=== PATIENT | male | born 1990 | race Caucasian/White ===

== ENCOUNTER 2016-09-15 12:44 | Emergency (ER) | payer OTHER ==
[~2016-09-15] VITALS: Ht 180.3 cm; Wt 84.3 kg
[~2016-09-15 12:44] MED LIST: ABL5 PO; ALBUAER2 INH
[2016-09-15 12:48] VITALS: TEMP 36.9; Ht 180.3 cm; Wt 84.3 kg
--- NOTE | 2016-09-15 13:43 | EMERGENCY ROOM VISIT NOTE ---
History Report prepared by Nitish: Niki Liz Under the Supervision of: Dr. Alex Hennessy M.D. First contact with patient: 13:19 Chief Complaint: DETOX REQUEST Stated Complaint: DETOX REQUEST Nursing Triage Summary: PT. was told to come to the ED from the Detox center in [facility]. He googled and called them for help. He is requesting to be seen for a referral to become a pt. at [facility]. He is concerned because he does not have health insurance. History of Present Illness The patient is a 26 year old male who presents to the Emergency Room for detox request. The patient is requesting detox from Percocet. He states that he has been taking on an average day 300 mg of Percocet and spending about $300 per day. The patient would take Xanax and Ambien if he could not find Percocet. His last intake of pills was within the past 24 hours. He states that he is beginning to feel nauseated and restless. The patient has tried to get clean before and made it 5 days before the withdrawal symptoms were too severe for him to handle it anymore. He states that this time he really wants to get clean and get his life together. He states that he is "sick of this lifestyle" and that he is "ruining his life". He notes he is spending all the money he makes on getting drugs. He gets the drugs from the street not a prescription. The patient denies IV drug use and denies ever using heroin or cocaine. He states that he is unable to remember himself before he started to take opiates. The patient notes diarrhea when he stops taking Percocet and constipation when he is using. He does have a history of anxiety and depression but denies currently being on medication to treat these. The patient was told to come to the ED by detox center in [facility] to get referral since he does not have health insurance. Source of History: patient Onset: today Position: other (global) Quality: other (detox request) Timing: constant Associated Symptoms: + nausea Note: The patient is beginning to feel restless. Patient is currently not on depression or anxiety medication. Review of Systems All systems have been listed, reviewed, and are negative other than those previously mentioned. Please see Additional Medical History Sheet. Past Medical & Surgical Medical Problems: (1) Anxiety (2) Asthma (3) Bronchitis (4) Depression (5) Pneumonia Family History Diabetes mellitus Hypertension Social History Smoking Status: Current Every Day Smoker Alcohol Use: occasionally Drug Use: other (percocet) Marital Status: in relationship Occupation Status: employed Current/Historical Medications No Active Prescriptions or Reported Meds Allergies Coded Allergies: Ibuprofen (Verified Allergy, Mild, HIVES/SOB, 09/15/16) BEE STING (Unverified Allergy, Unknown, ANAPHYLAXIS, 09/15/16) Wasp (Unverified Allergy, Unknown, ANAPHYLAXIS, 09/15/16) Physical Exam Vital Signs Date Time Temp Pulse Resp B/P (MAP) Pulse Ox O2 Delivery O2 Flow Rate FiO2 09/15/16 16:18 73 16 131/62 96 09/15/16 14:39 81 16 129/78 96 09/15/16 12:48 36.9 101 16 144/92 99 Room Air Physical Exam GENERAL: Patient awake, alert, oriented x 3. Patient follows commands and is appropriate. Patient does not appear toxic. Patient is adequately hydrated and well-nourished. SKIN: No erythema, pallor, cyanosis or rash HEENT: Normal head, pupils equal, reactive to light and accommodation. Oral cavity and posterior pharynx appear normal. Neck: Without adenopathy, no neck vein distention. LUNGS: Clear to auscultation. No wheezes, no rales, no rhonchi. HEART: No murmurs. No gallops. No rubs ABDOMEN: No masses, no rebound, no hepatomegaly or splenomegaly. EXTREMITIES: No signs of trauma. No pedal or pretibial edema. No calf or thigh tenderness. NEUROLOGIC: Cranial nerves II-XII within normal limits. No gross motor sensory function deficits. Medical Decision & Procedures ER Provider Diagnostic Interpretation: X ray results are stated below per my interpretation and the radiologist's interpretation. TWO VIEW CHEST CLINICAL HISTORY: Detox. FINDINGS: PA and lateral chest radiographs are compared to study dated 11/25/2007. The cardiomediastinal silhouette is unremarkable. The lungs and pleural spaces are clear. There is no pneumothorax. The bony thorax appears intact. There is mild S-shaped thoracolumbar scoliosis. IMPRESSION: No active disease in the chest. Electronically signed by: Da Dexter M.D. 09/15/2016 3:27 PM Dictated Date/Time: 09/15/2016 3:26 PM Laboratory Results 7/9/17 13:56 Red Blood Count 5.41, Mean Corpuscular Volume 86.0, Mean Corpuscular Hemoglobin 30.1, Mean Corpuscular Hemoglobin Concent 35.1, Mean Platelet Volume 8.8, Neutrophils (%) (Auto) 72.2, Lymphocytes (%) (Auto) 18.6, Monocytes (%) (Auto) 6.5, Eosinophils (%) (Auto) 2.2, Basophils (%) (Auto) 0.4, Neutrophils # (Auto) 8.71, Lymphocytes # (Auto) 2.24, Monocytes # (Auto) 0.78, Eosinophils # (Auto) 0.27, Basophils # (Auto) 0.05 09/15/16 13:56 Test 09/15/16 13:05 09/15/16 13:56 Urine Color DK YELLOW Urine Appearance CLEAR (CLEAR) Urine pH 6.0 (4.5-7.5) Urine Specific [place] 1.023 (1.000-1.030) Urine Protein NEG (NEG) Urine Glucose (UA) NEG (NEG) Urine Ketones TRACE (NEG) Urine Occult Blood NEG (NEG) Urine Nitrite NEG (NEG) Urine Bilirubin NEG (NEG) Urine Urobilinogen NEG (NEG) Urine Leukocyte Esterase NEG (NEG) White Blood Count 12.06 K/uL (4.8-10.8) Red Blood Count 5.41 M/uL (4.7-6.1) Hemoglobin 16.3 g/dL (14.0-18.0) Hematocrit 46.5 % (42-52) Mean Corpuscular Volume 86.0 fL (80-100) Mean Corpuscular Hemoglobin 30.1 pg (25-34) Mean Corpuscular Hemoglobin Concent 35.1 g/dl (32-36) Platelet Count 328 K/uL (130-400) Mean Platelet Volume 8.8 fL (7.4-10.4) Neutrophils (%) (Auto) 72.2 % Lymphocytes (%) (Auto) 18.6 % Monocytes (%) (Auto) 6.5 % Eosinophils (%) (Auto) 2.2 % Basophils (%) (Auto) 0.4 % Neutrophils # (Auto) 8.71 K/uL (1.4-6.5) Lymphocytes # (Auto) 2.24 K/uL (1.2-3.4) Monocytes # (Auto) 0.78 K/uL (0.11-0.59) Eosinophils # (Auto) 0.27 K/uL (0-0.5) Basophils # (Auto) 0.05 K/uL (0-0.2) RDW Standard Deviation 40.3 fL (36.4-46.3) RDW Coefficient of Variation 12.8 % (11.5-14.5) Immature Granulocyte % (Auto) 0.1 % Immature Granulocyte # (Auto) 0.01 K/uL (0.00-0.02) Anion Gap 7.0 mmol/L (3-11) Est Creatinine Clear Calc Drug Dose 147.7 ml/min Estimated GFR () 141.9 Estimated GFR (Non- 122.4 BUN/Creatinine Ratio 11.5 (10-20) Calcium Level 9.1 mg/dl (8.5-10.1) Total Bilirubin 0.3 mg/dl (0.2-1) Aspartate Amino Transf (AST/SGOT) 11 U/L (15-37) Alanine Aminotransferase (ALT/SGPT) 16 U/L (12-78) Alkaline Phosphatase 76 U/L (45-117) Total Protein 7.2 gm/dl (6.4-8.2) Albumin 4.2 gm/dl (3.4-5.0) Globulin 3.0 gm/dl (2.5-4.0) Albumin/Globulin Ratio 1.4 (0.9-2) Ethyl Alcohol mg/dL < 3.0 mg/dl (0-3) Laboratory results as stated above per my review. Medications Administered Medications (Trade) Dose Ordered Sig/Rosita Route Start Time Stop Time Status Last Admin Dose Admin Clonidine HCl (Catapres Tab) 0.1 mg NOW ONCE PO 09/15/16 15:00 09/15/16 15:01 DC 09/15/16 15:05 0.1 MG Lorazepam (Ativan Tab) 1 mg NOW STAT PO 09/15/16 14:54 09/15/16 14:56 DC 09/15/16 15:05 1 MG ECG Indication: other (drug detox) Rate (beats per minute): 74 Rhythm: sinus rhythm Findings: no acute ischemic change, no ectopy ED Course 1334: Past medical records reviewed. The patient was evaluated in room A7. A complete history and physical examination was performed. 1454: Ativan Inj 1 mg PO, Catapres Tab 0.1 mg PO. 1619: The patient is being transferred to [facility] in [place]. Medical Decision Nurses notes reviewed. Medical history sheet reviewed. Differential diagnosis includes but is not limited to: narcotic withdrawal, seeking rehab. The patient is opiate addicted and using large amounts on a daily basis. He would like to quit. Multiple labs, imaging, EKG and urinalysis were obtained. Please see above. White count is minimally elevated. This may be related to his withdrawal. The patient was given medication for his anxiety and early withdrawal. The patient was accepted to rehabilitation program. Patient had no other complications here in the ED while awaiting transfer. Medication Reconciliation: I attest that I have personally reviewed the patient' s current medication list. Blood Pressure Screening: Patient was found to have a slightly elevated blood pressure due to circumstances. I do not believe that the patient requires hypertension monitoring. Impression Primary Impression: Opiate addiction Additional Impression: Opiate withdrawal Scribe Attestation The scribe's documentation has been prepared under my direction and personally reviewed by me in its entirety. I confirm that the note above accurately reflects all work, treatment, procedures, and medical decision making performed by me. Departure Information Dispostion Transfer Acute Care Facility Prescriptions No Active Prescriptions or Reported Meds Referrals No Doctor, Assigned (PCP) Forms HOME CARE DOCUMENTATION FORM, IMPORTANT VISIT INFORMATION, WORK / SCHOOL INSTRUCTIONS Patient Instructions My [facility] Problem Qualifiers
[2016-09-15 14:17] LABS: BASO % 0.4 %; BASO ABS # 0.05 K/uL (0-0.2); COMPLETE YES; EOS % 2.2 %; HEMATOCRIT 46.5 % (42-52); IG% 0.1 %; LYMPH % 18.6 %; LYMPH ABS # 2.24 K/uL (1.2-3.4); MEAN CORPUSCULAR HEMOGLOBIN 30.1 pg (25-34); MEAN CORPUSCULAR HGB CONC 35.1 g/dl (32-36); MEAN PLATELET VOLUME 8.8 fL (7.4-10.4); MONO % 6.5 %; NEUT % 72.2 %; PLATELET COUNT 328 K/uL (130-400); RED BLOOD COUNT 5.41 M/uL (4.7-6.1); WHITE BLOOD COUNT 12.06 K/uL (4.8-10.8)
[2016-09-15 14:43] LABS: BUN/CREATININE RATIO 11.5 (10-20); CALCIUM 9.1 mg/dl (8.5-10.1); CREATININE 0.8 mg/dl (0.60-1.40); POTASSIUM 4.1 mmol/L (3.5-5.1)
[2016-09-15 14:46] LABS: ALB/GLOB RATIO 1.4 (0.9-2)
[2016-09-15] MEDS ORDERED: LORAZEPAM 1 MG TAB PO STA (14:54)
[2016-09-15] MEDS ORDERED: CLONIDINE HCL 0.1 MG TAB PO ONE (15:00)
--- NOTE | 2016-09-15 15:28 | DIAGNOSTIC IMAGING REPORT ---
TWO VIEW CHEST CLINICAL HISTORY: Detox. FINDINGS: PA and lateral chest radiographs are compared to study dated 11/25/2007. The cardiomediastinal silhouette is unremarkable. The lungs and pleural spaces are clear. There is no pneumothorax. The bony thorax appears intact. There is mild S-shaped thoracolumbar scoliosis. IMPRESSION: No active disease in the chest. Electronically signed by: Da Dexter M.D. 09/15/2016 3:27 PM Dictated Date/Time: 09/15/2016 3:26 PM
[2016-09-15 16:18] VITALS: BP 131/62; PULSE 73; O2SAT 96
[2016-09-15 16:26] LABS: URINE APPEARANCE CLEAR (CLEAR); URINE BILIRUBIN NEG (NEG); URINE COLOR DK YELLOW; URINE NITRITE NEG (NEG); URINE SPECIFIC GRAVITY 1.023 (1.000-1.030); UROBILINOGEN NEG (NEG); ZZUR CULT IF INDIC CLEAN CATCH NO
[2016-09-15 16:29] LABS: MANUAL MICROSCOPIC REQUIRED? NO; REVIEW REQ? NO
== END 2016-09-15 16:18 | disposition short-term general hospital (02) ==
LOC: C.EDB 12:46 → C.EDA 16:18
DX: F11.23 Opioid dependence with withdrawal (principal); F41.9 Anxiety disorder, unspecified; J45.909 Unspecified asthma, uncomplicated; Z83.3 Family history of diabetes mellitus; Z82.49 Family history of ischemic heart disease and other diseases of the circulatory system; F17.200 Nicotine dependence, unspecified, uncomplicated

== ENCOUNTER → 2017-07-24 | Outpatient (CLI) | payer OTHER ==
--- NOTE | 2017-07-24 15:56 | DIAGNOSTIC IMAGING REPORT ---
LEFT KNEE 3 VIEWS HISTORY: S83.90XA Knee sprain Left; hyperextension [id number] COMPARISON: None. FINDINGS: There is no fracture or dislocation. Soft tissues are unremarkable. No radiopaque foreign bodies. No significant knee effusion. IMPRESSION: Unremarkable left knee. Electronically signed by: Francesco Urias M.D. 07/24/2017 3:54 PM Dictated Date/Time: 07/24/2017 3:54 PM
== END | disposition home or self-care (01) ==
LOC: C.RAD1850 15:24
PROVIDERS: ATTEND Nurse Practitioner Family
DX: S83.92XA Sprain of unspecified site of left knee, initial encounter (principal); X58.XXXA Exposure to other specified factors, initial encounter

== ENCOUNTER 2021-10-06 22:54 | Inpatient (IN) ==
--- NOTE | 2021-10-07 00:15 | Emergency Department Note ---
Impression & Plan Mood disorder, Alcohol intoxication Case will be signed out to Dr. Smyth at change of shift awaiting bed placement. ED Provider Note NAME: ALISON CHEN JR AGE: 31 SEX: M ARRIVES VIA: Walk-In INFORMANT: Patient ED PROVIDER(S): Melissa Bro DO CHIEF COMPLAINT: Suicidal and homicidal threats PLAN: Disposition: Signed out at change of shift Condition: Stable MEDICAL DECISION MAKING: This is a 31-year-old male patient who was drinking alcohol tonight and made suicidal and homicidal threats. The patient was intoxicated. Patient was brought to the emergency department on a 302 petition. He was observed in the emergency department until his alcohol level came down. At that time he was medically cleared. The immigration case manager tried to speak with the patient but he initially refused to cooperate. Case management spoke with police, crisis, the patient's girlfriend, and the patient's mother. They all voiced concern for the patient's safety. The police, crisis, and the patient's girlfriend all confirmed that the patient was making suicidal threats and homicidal threats last night prior to coming to the emergency department. Girlfriend states that the patient loaded ammunition into a gun and cocked the gun which was very worrisome for her. I reviewed the 302 and signed off on it. A bed search is underway. Triage Nursing notes reviewed and agree with them. Additional history obtained from police Vital Signs: reviewed and remarkable for hypertension and tachycardia Differential diagnosis: Alcohol intoxication, mood disorder, thought disorder, suicidal ideation, homicidal ideation Diagnostics interpreted by me: Laboratory studies: See below HPI: 31/M arrives for evaluation of suicidal and homicidal ideation. The patient was in an argument with his girlfriend nohelia who petitioned a PFA. He was making suicidal and homicidal threats. When police arrived, he was threatening them with a rifle. They brought him here for mental health armando luation. The patient admits to a history of bipolar disorder and has been off of his Wellbutrin for the past 3 weeks. The patient admits to being an alcoholic and drinking tonight. ROS: See above HPI for pertinent positives & negatives. A total of 10 systems reviewed and were otherwise negative. PAST MEDICAL HISTORY:BiPolar disorder PAST SURGICAL HISTORY:See Below FAMILY HISTORY:See Below SOCIAL HISTORY:The patient does drink alcohol frequently but denies any other drug use. He had been living with his girlfriend. HOME MEDICATIONS:None ALLERGIES:See list VITALS:See Below PHYSICAL EXAMINATION: HEENT: Head - normocephalic and atraumatic. Pupils are equal, round, and reactive to light. Extraocular eye muscles are intact, and sclera are anicteric. Nose - moist nasal mucosa without discharge. Mouth - moist buccal mucosa. Oropharynx is nonerythematous and there is no tonsillar exudate or edema noted. Neck: Supple; no cervical lymphadenopathy noted Heart: Regular rate and rhythm. There is a normal S1 and S2 with no murmurs, clicks, or gallops appreciated. Lungs: Clear to auscultation bilaterally with no wheezes, rales, or rhonchi. Abdomen: Soft, completely nontender, nondistended, with good bowel sounds. There are no palpable pulsatile masses or hepatosplenomegaly. There is no guarding, rigidity, or rebound noted. Extremities: No evidence of cyanosis, clubbing, or edema. There are easily palpable peripheral pulses. Skin: warm and dry with good turgor and no rashes. Psych: ED COURSE: Times/Reassessments: 2325: Patient was evaluated in room A5. The patient was slightly agitated. He was finally agreeable to have laboratory studies drawn. The patient had a blood alcohol level greater than 200. He was allowed some time to sober up and then case management met with him. I also met with him again as he was unwilling to talk to the immigration case manager. I urged him to be cooperative and answer questions so that we could process through the 302. The immigration case manager reached out to the patient's girlfriend as well as the patient's mother. The patient's girlfriend was very concerned for the escalating situation with the patient's alcohol use and mental health issues as he loaded a gun with the ammunition last night and cocked it. A 302 was signed and a bed search is underway. Melissa Bro DO Past Med/Surg History Social History Smoking Status: Unknown if ever smoked Feels Safe at Home: Yes Allergies Allergies Allergy/AdvReac Type Severity Reaction Status Date / Time ibuprofen Allergy Mild HIVES/SOB Verified 10/07/21 00:25 bee venom protein (honey bee) Allergy Unknown ANAPHYLAXIS Unverified 10/07/21 00:25 hornet venom Allergy Unknown ANAPHYLAXIS Unverified 10/07/21 00:25 Home Meds Home Medications Medication Instructions Recorded Confirmed No Known Home Medications 10/07/21 10/07/21 Results & Data (ED) Vital Signs Vital Signs - 24 hr 10/06/21 22:51 10/06/21 22:59 10/07/21 04:22 Temperature 37.1 C Temperature Source Oral Pulse Rate 108 H Pulse Rate [Finger] 84 Pulse Rhythm Regular Pulse Strength Normal Respiratory Rate 16 20 20 Respiratory Effort / Characteristics Non-Labored Spontaneous Non-Labored Spontaneous Non-Labored Spontaneous Respiratory Depth Normal Normal Normal Blood Pressure 150/113 H Blood Pressure [Left Arm] 111/65 Blood Pressure Mean 125 Blood Pressure Mean [Left Arm] 80 Blood Pressure Position Lying Pulse Oximetry 96 96 Oxygen Delivery Method Room Air Room Air Sepsis Recent Fever Within 48 Hours No Sepsis New/Unexplained Change in Mental Status No Sepsis Action Taken by Nursing No Action Required Laboratory Data Result diagrams: 10/07/21 00:00 10/07/21 00:00 Lab Results 10/07/21 10/07/21 10/07/21 Range/Units 00:00 00:00 00:00 WBC 9.06 (4.8-10.8) K/ul RBC 4.85 (4.63-6.08) M/uL Hgb 14.7 (14.0-18.0) g/dl Hct 42.4 (40.1-51.0) % MCV 87.4 (80.0-100.0) fL MCH 30.3 (25.0-34.0) pg MCHC 34.7 (32.0-36.0) g/dL RDW Std Deviation 40.1 (36.4-46.3) fL RDW Coeff of Rosalie 12.7 (11.5-14.5) % Plt Count 295 (130-400) K/uL MPV 8.5 L (9.4-12.4) fL Immature Gran % (Auto) 0.3 % Neut % (Auto) 46.4 % Lymph % (Auto) 39.7 % [place] % (Auto) 9.3 % Eos % (Auto) 3.5 % Baso % (Auto) 0.8 % Neut # (Auto) 4.20 (1.4-6.5) K/uL Lymph # (Auto) 3.60 H (1.2-3.4) K/uL [place] # (Auto) 0.84 H (0.24-0.82) K/uL Eos # (Auto) 0.32 (0-0.50) K/uL Baso # (Auto) 0.07 (0-0.2) K/uL Immature Gran # (Auto) 0.03 H (0.00-0.02) K/uL Sodium 141 (136-145) mmol/L Potassium 3.9 (3.5-5.1) mmol/L Chloride 109 H (98-107) mmol/L Carbon Dioxide 22 (21-32) mmol/L Anion Gap 10 (3-11) BUN 11 (6-23) mg/dl Creatinine 0.64 (0.6-1.4) mg/dl Est Cr Clr Drug Dosing 196.4 ml/min Est GFR ( Amer) > 150.0 ml/min Est GFR (Non-Af Amer) 129.6 ml/min BUN/Creatinine Ratio 17.2 (10-20) Glucose 99 (70-99(Fasting)) mg/dl Calcium 8.7 (8.5-10.1) mg/dl Total Bilirubin 0.2 (0.2-1.0) mg/dl AST 20 (13-39) U/L ALT 30 (7-52) U/L Alkaline Phosphatase 64 (34-104) U/L Total Protein 6.7 (6.0-8.3) gm/dl Albumin 4.5 (3.4-5.0) gm/dl Globulin 2.2 L (2.5-4.0) gm/dl Albumin/Globulin Ratio 2.0 (0.9-2) TSH 4.710 H (0.300-4.500) uIu/ml Free T4 0.84 (0.61-1.60) ng/dl Urine Color Urine Appearance (Clear) Urine pH (4.5-7.5) Ur Specific [place] (1.000-1.030) Urine Protein (Negative) Urine Glucose (UA) (Negative) Urine Ketones (Negative) Urine Blood (Negative) Urine Nitrite (Negative) Urine Bilirubin (Negative) Urine Urobilinogen (Negative) Ur Leukocyte Esterase (Negative) Urine WBC (Auto) (0-5) /hpf Urine RBC (Auto) (0-4) /hpf U Hyaline Cast (Auto) (0-5) /lpf U Epithel Cells (Auto) (0-5) /lpf Urine Bacteria (Auto) (Negative) Salicylates (3.0-30) mg/dl Urine Opiates Screen (Neg) Ur Methadone, Qual (Neg) Acetaminophen (10-30) ug/ml Urine Barbiturates (Neg) Ur Phencyclidine (PCP) (Neg) U Amphetamin/Meth Scrn (Neg) MDMA (Ecstasy) Screen (Neg) U Benzodiazepines Scrn (Neg) Ur Cocaine Metabolite (Neg) U Marijuana (THC) Screen (Neg) Ethyl Alcohol mg/dL (<10.0) mg/dl 10/07/21 10/07/21 10/07/21 Range/Units 00:00 00:00 00:00 WBC (4.8-10.8) K/ul RBC (4.63-6.08) M/uL Hgb (14.0-18.0) g/dl Hct (40.1-51.0) % MCV (80.0-100.0) fL MCH (25.0-34.0) pg MCHC (32.0-36.0) g/dL RDW Std Deviation (36.4-46.3) fL RDW Coeff of Rosalie (11.5-14.5) % Plt Count (130-400) K/uL MPV (9.4-12.4) fL Immature Gran % (Auto) % Neut % (Auto) % Lymph % (Auto) % [place] % (Auto) % Eos % (Auto) % Baso % (Auto) % Neut # (Auto) (1.4-6.5) K/uL Lymph # (Auto) (1.2-3.4) K/uL [place] # (Auto) (0.24-0.82) K/uL Eos # (Auto) (0-0.50) K/uL Baso # (Auto) (0-0.2) K/uL Immature Gran # (Auto) (0.00-0.02) K/uL Sodium (136-145) mmol/L Potassium (3.5-5.1) mmol/L Chloride (98-107) mmol/L Carbon Dioxide (21-32) mmol/L Anion Gap (3-11) BUN (6-23) mg/dl Creatinine (0.6-1.4) mg/dl Est Cr Clr Drug Dosing ml/min Est GFR ( Amer) ml/min Est GFR (Non-Af Amer) ml/min BUN/Creatinine Ratio (10-20) Glucose (70-99(Fasting)) mg/dl Calcium (8.5-10.1) mg/dl Total Bilirubin (0.2-1.0) mg/dl AST (13-39) U/L ALT (7-52) U/L Alkaline Phosphatase (34-104) U/L Total Protein (6.0-8.3) gm/dl Albumin (3.4-5.0) gm/dl Globulin (2.5-4.0) gm/dl Albumin/Globulin Ratio (0.9-2) TSH (0.300-4.500) uIu/ml Free T4 (0.61-1.60) ng/dl Urine Color Urine Appearance (Clear) Urine pH (4.5-7.5) Ur Specific [place] (1.000-1.030) Urine Protein (Negative) Urine Glucose (UA) (Negative) Urine Ketones (Negative) Urine Blood (Negative) Urine Nitrite (Negative) Urine Bilirubin (Negative) Urine Urobilinogen (Negative) Ur Leukocyte Esterase (Negative) Urine WBC (Auto) (0-5) /hpf Urine RBC (Auto) (0-4) /hpf U Hyaline Cast (Auto) (0-5) /lpf U Epithel Cells (Auto) (0-5) /lpf Urine Bacteria (Auto) (Negative) Salicylates < 3.0 L (3.0-30) mg/dl Urine Opiates Screen Neg (Neg) Ur Methadone, Qual Neg (Neg) Acetaminophen < 3 L (10-30) ug/ml Urine Barbiturates Neg (Neg) Ur Phencyclidine (PCP) Neg (Neg) U Amphetamin/Meth Scrn Neg (Neg) MDMA (Ecstasy) Screen Neg (Neg) U Benzodiazepines Scrn Neg (Neg) Ur Cocaine Metabolite Neg (Neg) U Marijuana (THC) Screen Neg (Neg) Ethyl Alcohol mg/dL 208.2 H (<10.0) mg/dl 07/31/22 Range/Units 00:00 WBC (4.8-10.8) K/ul RBC (4.63-6.08) M/uL Hgb (14.0-18.0) g/dl Hct (40.1-51.0) % MCV (80.0-100.0) fL MCH (25.0-34.0) pg MCHC (32.0-36.0) g/dL RDW Std Deviation (36.4-46.3) fL RDW Coeff of Rosalie (11.5-14.5) % Plt Count (130-400) K/uL MPV (9.4-12.4) fL Immature Gran % (Auto) % Neut % (Auto) % Lymph % (Auto) % [place] % (Auto) % Eos % (Auto) % Baso % (Auto) % Neut # (Auto) (1.4-6.5) K/uL Lymph # (Auto) (1.2-3.4) K/uL [place] # (Auto) (0.24-0.82) K/uL Eos # (Auto) (0-0.50) K/uL Baso # (Auto) (0-0.2) K/uL Immature Gran # (Auto) (0.00-0.02) K/uL Sodium (136-145) mmol/L Potassium (3.5-5.1) mmol/L Chloride (98-107) mmol/L Carbon Dioxide (21-32) mmol/L Anion Gap (3-11) BUN (6-23) mg/dl Creatinine (0.6-1.4) mg/dl Est Cr Clr Drug Dosing ml/min Est GFR ( Amer) ml/min Est GFR (Non-Af Amer) ml/min BUN/Creatinine Ratio (10-20) Glucose (70-99(Fasting)) mg/dl Calcium (8.5-10.1) mg/dl Total Bilirubin (0.2-1.0) mg/dl AST (13-39) U/L ALT (7-52) U/L Alkaline Phosphatase (34-104) U/L Total Protein (6.0-8.3) gm/dl Albumin (3.4-5.0) gm/dl Globulin (2.5-4.0) gm/dl Albumin/Globulin Ratio (0.9-2) TSH (0.300-4.500) uIu/ml Free T4 (0.61-1.60) ng/dl Urine Color Yellow Urine Appearance Clear (Clear) Urine pH 6.0 (4.5-7.5) Ur Specific [place] 1.007 (1.000-1.030) Urine Protein Negative (Negative) Urine Glucose (UA) Negative (Negative) Urine Ketones Negative (Negative) Urine Blood Negative (Negative) Urine Nitrite Negative (Negative) Urine Bilirubin Negative (Negative) Urine Urobilinogen Negative (Negative) Ur Leukocyte Esterase Trace H (Negative) Urine WBC (Auto) 1-5 (0-5) /hpf Urine RBC (Auto) 0-4 (0-4) /hpf U Hyaline Cast (Auto) 0 (0-5) /lpf U Epithel Cells (Auto) 0-5 (0-5) /lpf Urine Bacteria (Auto) Negative (Negative) Salicylates (3.0-30) mg/dl Urine Opiates Screen (Neg) Ur Methadone, Qual (Neg) Acetaminophen (10-30) ug/ml Urine Barbiturates (Neg) Ur Phencyclidine (PCP) (Neg) U Amphetamin/Meth Scrn (Neg) MDMA (Ecstasy) Screen (Neg) U Benzodiazepines Scrn (Neg) Ur Cocaine Metabolite (Neg) U Marijuana (THC) Screen (Neg) Ethyl Alcohol mg/dL (<10.0) mg/dl Discharge Plan Visit Data Chief Complaint: Mental Health Evaluation ED Provider: Melissa Bro Discharge Problem: Mood disorder, Alcohol intoxication Forms Stand Alone Forms: [facility], Suicide Prevention Resources Prescriptions Prescriptions: No Action No Known Home Medications Referrals Referrals: PCP,NO [Primary Care Provider] - : Alcohol intoxication Qualifiers: Complication of substance-induced condition: with unspecified complication Qualified Code(s): F10.929 - Alcohol use, unspecified with intoxication, unspecified
[2021-10-07 00:18] LABS: Basophils # (auto) 0.07 K/uL (0-0.2); Basophils % (auto) 0.8 %; Eosinophils # (auto) 0.32 K/uL (0-0.50); Eosinophils % (auto) 3.5 %; Hematocrit (blood only) 42.4 % (40.1-51.0); Hemoglobin 14.7 g/dl (14.0-18.0); Immature Granulocytes # (auto) 0.03 K/uL (0.00-0.02); Immature Granulocytes % (auto) 0.3 %; Lymphocytes % (auto) 39.7 %; Mean Corpuscular Hemoglobin 30.3 pg (25.0-34.0); Mean Corpuscular Hgb Conc 34.7 g/dL (32.0-36.0); Mean Corpuscular Volume 87.4 fL (80.0-100.0); Mean Platelet Volume 8.5 fL (9.4-12.4); Monocytes # (auto) 0.84 K/uL (0.24-0.82); Monocytes % (auto) 9.3 %; Neutrophils % (auto) 46.4 %; Platelet Count 295 K/uL (130-400); RDW Coefficient of Variation 12.7 % (11.5-14.5); RDW Standard Deviation 40.1 fL (36.4-46.3); Red Blood Count 4.85 M/uL (4.63-6.08); White Blood Count 9.06 K/ul (4.8-10.8)
[2021-10-07 00:23] LABS: Appearance Urine Clear (Clear); Bacteria Urine Automated Negative (Negative); Bilirubin Urine Negative (Negative); Blood Urine Negative (Negative); Cast Urine Automated 0 /lpf (0-5); Color Urine Yellow; Epithelial Cell Urine Auto 0-5 /lpf (0-5); Glucose Urine UA Negative (Negative); Ketones Urine Negative (Negative); Leukocyte Esterase Urine Trace (Negative); Nitrite Urine Negative (Negative); Protein Urine Negative (Negative); RBC Urine Automated 0-4 /hpf (0-4); Specific Gravity Urine 1.007 (1.000-1.030); Urobilinogen Urine Negative (Negative)
[2021-10-07 00:41] LABS: Alanine Aminotransferase 30 U/L (7-52); Albumin Level 4.5 gm/dl (3.4-5.0); Alkaline Phosphatase 64 U/L (34-104); Anion Gap 10 (3-11); Aspartate Aminotransferase 20 U/L (13-39); BUN Creatinine Ratio 17.2 (10-20); Bilirubin,Total 0.2 mg/dl (0.2-1.0); Blood Urea Nitrogen 11 mg/dl (6-23); Calcium 8.7 mg/dl (8.5-10.1); Carbon Dioxide 22 mmol/L (21-32); Chloride 109 mmol/L (98-107); Creatinine Clr Calc Pharmacy 196.4 ml/min; Est GFR (African American) > 150.0 ml/min; Est GFR (Non-African American) 129.6 ml/min; Globulin 2.2 gm/dl (2.5-4.0); Glucose 99 mg/dl (70-99(Fasting)); Potassium 3.9 mmol/L (3.5-5.1); Sodium 141 mmol/L (136-145); Total Protein 6.7 gm/dl (6.0-8.3)
[2021-10-07 00:51] LABS: Amphetamines+Metham, Urine Neg (Neg); Barbiturates, Urine Neg (Neg); Benzodiazepine, Urine Neg (Neg); Cocaine, Urine Neg (Neg); MDMA (Ecstacy), Urine Neg (Neg); Methadone, Urine Neg (Neg); Opiate, Urine Neg (Neg); Phencyclidine, Urine Neg (Neg)
[2021-10-07 00:54] LABS: Acetaminophen < 3 ug/ml (10-30); Salicylate < 3.0 mg/dl (3.0-30)
[2021-10-07 01:04] LABS: Thyroid Stimulating Hormone 4.71 uIu/ml (0.300-4.500)
[2021-10-07 01:38] LABS: T4 Free Thyroxine 0.84 ng/dl (0.61-1.60)
[2021-10-07] MEDS ORDERED: NICOTINE POLACRILEX 2 MG GUM MT PRN (12:46)
[2021-10-07] MEDS ORDERED: NICOTINE POLACRILEX 2 MG GUM MT ONE (12:50)
--- NOTE | 2021-10-07 15:06 | Emergency Department Note ---
ED Visit Note Date and Time: 10/07/21 Interval History: Sign out received from Dr. Bro who reviewed details of the encounter. Patient was pending. Is a 302 with suicidal ideation and had an loaded rifle at 1 point. He was also homicidal towards police. Bed search underway. Summary: Patient was re-evaluated at 1500 and vital signs reviewed. Is awake a lert. Skin turgor is good. Breathing normally. So far there have been 4 referrals. 3 declined the patient. [address] out to Dr. James. Disposition:pending Total Time:pending . : Alcohol intoxication Qualifiers: Complication of substance-induced condition: with unspecified complication Qualified Code(s): F10.929 - Alcohol use, unspecified with intoxication, unspecified
--- NOTE | 2021-10-07 15:12 | Emergency Department Note ---
ED Visit Note Date and Time: 10/08/2021, 0036 Interval History: Sign out received from Dr. Smyth who reviewed details of the encounter. Patient was pending involuntary psychiatric bed placement. Summary: Patient was re-evaluated at 0036 and vital signs reviewed. The patient has been cooperative. He was given a dose of oral Ativan to help with some anxiety. He is currently resting comfortably. Bed search is underway. Case assumed by Dr. Bro at the change of shift Disposition: Pending. Total Time: Pending . : Alcohol intoxication Qualifiers: Complication of substance-induced condition: with unspecified complication Qualified Code(s): F10.929 - Alcohol use, unspecified with intoxication, unspecified
[2021-10-07] MEDS ORDERED: LORazepam 1 MG TAB PO STA (19:43)
--- NOTE | 2021-10-08 00:42 | Emergency Department Note ---
ED Visit Note Date and Time: 10/08/2021 700AM Interval History: Sign out received from Dr. James who reviewed details of the encounter. Vital Signs: Reviewed Limited Exam: Patient was awake and alert. He has normal breathing and normal skin color. Psych: Patient is pleasant and cooperative on exam. He has a normal thought process and is able to communicate with me. He voices that he is significantly hungry and would like a double breakfast tray. Summary: The patient was signed out to me overnight awaiting bed placement. The bed search was suspended overnight. He rested throughout the night. He had received something for his anxiety last night that helped him sleep overnight. The case will be signed out to Dr. Stern at change of shift awaiting further psychiatric evaluation today and bed placement. Disposition: Pending as the bed search has been suspended overnight Total Time:Pending . : Alcohol intoxication Qualifiers: Complication of substance-induced condition: with unspecified complication Qualified Code(s): F10.929 - Alcohol use, unspecified with intoxication, unspecified
--- NOTE | 2021-10-08 06:49 | Emergency Department Note ---
ED Visit Note ED Physician Sign Out Note: 31 yr old male here on 302 warrant (gun involved & police) pending bed placement. Signed out to me by Dr Bro pending placement. Patient with no issues throughout the morning. He is evaluated by psychiatry who does feel he requires inpatient stay. He was signed out to Dr Morton pending placement. Mitul Stern MD : Alcohol intoxication Qualifiers: Complication of substance-induced condition: with unspecified complication Qualified Code(s): F10.929 - Alcohol use, unspecified with intoxication, unspecified
--- NOTE | 2021-10-08 12:43 | Psychiatric Consultation ---
Date of Consultation October 08, 2021 Impression / Recommendations Impression 31 yo male with a reported diagnosis of bipolar disorder, hx of opiate dependence, presents with increasingly erratic behavior involving a weapon while intoxicated after misusing Wellbutrin. Wellbutrin is dopaminergic and given his hx of bipolar could precipitate a manic episode. He has reportedly been self medicating with Etoh. He has been cooperative in ED on his 302 commitment, did receive 1 dose of Ativan for restlessness/sleep. No evidence of ETOH withdrawal on exam at this time, may need AWSS protocol. (1) Bipolar disorder: (2) Alcohol intoxication: Complication of substance-induced condition: with unspecified complication Qualified Code(s): F10.929 - Alcohol use, unspecified with intoxication, unspecified Plan continue bed search, currently no evidence of cruz, incident was significant and likely minimizing considering restart Abilify when placed if agitation in interim would suggest Haldol 5 mg po and Ativan 1 mg po Protective Factors Assessment Employed: Yes Psych History Identifying Data 31 yo male lived with his girlfriend (now there is reportedly a PFA) in [place]. Brought to the ED on a 302 warrant by police in early am on 10/07/21, now a completed 302 for threats to self and others. Chief Complaint boarding in ED >30 hrs at time of assessment History of Present Illness The patient had a SHANNA on arrival to the ED of >200, reportedly several hours after he stopped drinking. He states he will have 2-3 beers with dinner and then have a binge episode maybe once a month, and "that day was it." Denies pointing a gun at himself or girlfriend. Alleges that she is mentally unstable in that self-injured and was seen in the ED and released in the past so feels he is being targetted but denies paranoia. There is mention on the chart that he has been off of medications for at least a week. Patient admits that he was taking his girlfriend's Wellbutrin and "that stuff made me manic." states that the past 6 years he has been stable (following release from custodial on probation violations stemming from drug charges (opiate abuse related) and he did complete rehab as a condition of his release. He has been working for a [employer] and has been spending time with his 8 yo daughter. He is interested in resuming outpatient care and perhaps a mood stabilizer. Denies any vegetative symptoms of depression, unclear if has irritable episodes outside of alcohol and substance use. He was not able to recall when he was diagnosed with bipolar disorder, states he was "just a kid" and recalls seeing Dr. Garcia and Dr. Ulloa. Denies a hx of inpatient treatment. Recalls that Abilify "helped." Reports a good relationship with his probation office and believes that he can stay with his mother after leave psychiatic facility. per ED CM: Spoke with petclementeer [removed as 3rd republican] states that Best has been struggling with his mental health for years but has been decompensating since this past winter when his grandmother was sick and he began drinking heavily again. She states that Best has threatened suicide multiple times before but yesterday was more concerning than any other time. She states Best drank heavily yesterday and took [] new car for two hours. He became angry when she confronted him and flipped out, slamming doors. [] heard Best in the bedroom loading and cocking his rifle. He took the rifle with him and stated he was going to kill himself. She states he's been having visual and auditory hallucinations, calling her at work stating there were people in the backyard. She states he has pointed his gun at both himself and her. Past Psychiatric History Current Psychiatric Diagnosis: Bipolar disorder Allergies Allergy/AdvReac Type Severity Reaction Status Date / Time ibuprofen Allergy Mild HIVES/SOB Verified 10/07/21 00:25 bee venom protein (honey bee) Allergy Unknown ANAPHYLAXIS Unverified 10/07/21 00:25 hornet venom Allergy Unknown ANAPHYLAXIS Unverified 10/07/21 00:25 Home Medications Medication Instructions Recorded Confirmed Type No Known Home Medications 10/07/21 10/07/21 History Family History states does't know Personal History Living Arrangements: Home Patient History Medical History (Updated 10/08/21 @ 12:55 by Maria Isabel Dickerson MD) Asthma Social History Smoking Status: Unknown if ever smoked Feels Safe at Home: Yes Physical Exam Psychiatric: Orientation: alert and oriented x 3 Apperance: appropriately dressed and appropriately groomed Eye Contact: good eye contact Motor Behavior: no abnormal motor movements Speech: normal rate/rhythm/volume of speech Affect: euthymic affect Mood: + depressed mood Thought Process: goal directed thought process Thought Content: reality based without d elusions Suicidal Thoughts: denies suicidal thoughts Homicidal Thoughts: denies homicidal thoughts Hallucinations: no auditory hallucinations and no visual hallucinations Cognition: attention grossly intact and language grossly intact Estimated Intelligence: consistent with education level Insight: + limited insight Judgement: + limited judgement Vital Signs (Past 24 Hours): Last Vital Signs Temp 37.1 C 10/06/21 22:51 Pulse 63 10/08/21 06:32 Resp 16 10/08/21 06:32 BP 142/86 H 10/08/21 06:32 Pulse Ox 98 10/08/21 06:32 O2 Del Method 10/08/21 06:32 Review of Systems All systems reviewed & are unremarkable except as noted in HPI & below Results & Data (PSY) Laboratory Results Labs 10/07/21 10/07/21 10/07/21 00:00 00:00 00:00 WBC 9.06 RBC 4.85 Hgb 14.7 Hct 42.4 MCV 87.4 MCH 30.3 MCHC 34.7 RDW Std Deviation 40.1 RDW Coeff of Rosalie 12.7 Plt Count 295 MPV 8.5 L Immature Gran % (Auto) 0.3 Neut % (Auto) 46.4 Lymph % (Auto) 39.7 Day % (Auto) 9.3 Eos % (Auto) 3.5 Baso % (Auto) 0.8 Neut # (Auto) 4.20 Lymph # (Auto) 3.60 H Day # (Auto) 0.84 H Eos # (Auto) 0.32 Baso # (Auto) 0.07 Immature Gran # (Auto) 0.03 H Sodium 141 Potassium 3.9 Chloride 109 H Carbon Dioxide 22 Anion Gap 10 BUN 11 Creatinine 0.64 Est Cr Clr Drug Dosing 196.4 Est GFR ( Amer) > 150.0 Est GFR (Non-Af Amer) 129.6 BUN/Creatinine Ratio 17.2 Glucose 99 Calcium 8.7 Total Bilirubin 0.2 AST 20 ALT 30 Alkaline Phosphatase 64 Total Protein 6.7 Albumin 4.5 Globulin 2.2 L Albumin/Globulin Ratio 2.0 TSH 4.710 H Free T4 0.84 Urine Color Urine Appearance Urine pH Ur Specific Sully Urine Protein Urine Glucose (UA) Urine Ketones Urine Blood Urine Nitrite Urine Bilirubin Urine Urobilinogen Ur Leukocyte Esterase Urine WBC (Auto) Urine RBC (Auto) U Hyaline Cast (Auto) U Epithel Cells (Auto) Urine Bacteria (Auto) Salicylates Urine Opiates Screen Ur Methadone, Qual Acetaminophen Urine Barbiturates Ur Phencyclidine (PCP) U Amphetamin/Meth Scrn MDMA (Ecstasy) Screen U Benzodiazepines Scrn Ur Cocaine Metabolite U Marijuana (THC) Screen Ethyl Alcohol mg/dL SARS-CoV-2, RNA, NAAT 10/07/21 10/07/21 10/07/21 00:00 00:00 00:00 WBC RBC Hgb Hct MCV MCH MCHC RDW Std Deviation RDW Coeff of Rosalie Plt Count MPV Immature Gran % (Auto) Neut % (Auto) Lymph % (Auto) Day % (Auto) Eos % (Auto) Baso % (Auto) Neut # (Auto) Lymph # (Auto) Day # (Auto) Eos # (Auto) Baso # (Auto) Immature Gran # (Auto) Sodium Potassium Chloride Carbon Dioxide Anion Gap BUN Creatinine Est Cr Clr Drug Dosing Est GFR ( Amer) Est GFR (Non-Af Amer) BUN/Creatinine Ratio Glucose Calcium Total Bilirubin AST ALT Alkaline Phosphatase Total Protein Albumin Globulin Albumin/Globulin Ratio TSH Free T4 Urine Color Urine Appearance Urine pH Ur Specific Sully Urine Protein Urine Glucose (UA) Urine Ketones Urine Blood Urine Nitrite Urine Bilirubin Urine Urobilinogen Ur Leukocyte Esterase Urine WBC (Auto) Urine RBC (Auto) U Hyaline Cast (Auto) U Epithel Cells (Auto) Urine Bacteria (Auto) Salicylates < 3.0 L Urine Opiates Screen Neg Ur Methadone, Qual Neg Acetaminophen < 3 L Urine Barbiturates Neg Ur Phencyclidine (PCP) Neg U Amphetamin/Meth Scrn Neg MDMA (Ecstasy) Screen Neg U Benzodiazepines Scrn Neg Ur Cocaine Metabolite Neg U Marijuana (THC) Screen Neg Ethyl Alcohol mg/dL 208.2 H SARS-CoV-2, RNA, NAAT 10/07/21 10/07/21 00:00 13:45 WBC RBC Hgb Hct MCV MCH MCHC RDW Std Deviation RDW Coeff of Rosalie Plt Count MPV Immature Gran % (Auto) Neut % (Auto) Lymph % (Auto) Day % (Auto) Eos % (Auto) Baso % (Auto) Neut # (Auto) Lymph # (Auto) Day # (Auto) Eos # (Auto) Baso # (Auto) Immature Gran # (Auto) Sodium Potassium Chloride Carbon Dioxide Anion Gap BUN Creatinine Est Cr Clr Drug Dosing Est GFR ( Amer) Est GFR (Non-Af Amer) BUN/Creatinine Ratio Glucose Calcium Total Bilirubin AST ALT Alkaline Phosphatase Total Protein Albumin Globulin Albumin/Globulin Ratio TSH Free T4 Urine Color Yellow Urine Appearance Clear Urine pH 6.0 Ur Specific Sully 1.007 Urine Protein Negative Urine Glucose (UA) Negative Urine Ketones Negative Urine Blood Negative Urine Nitrite Negative Urine Bilirubin Negative Urine Urobilinogen Negative Ur Leukocyte Esterase Trace H Urine WBC (Auto) 1-5 Urine RBC (Auto) 0-4 U Hyaline Cast (Auto) 0 U Epithel Cells (Auto) 0-5 Urine Bacteria (Auto) Negative Salicylates Urine Opiates Screen Ur Methadone, Qual Acetaminophen Urine Barbiturates Ur Phencyclidine (PCP) U Amphetamin/Meth Scrn MDMA (Ecstasy) Screen U Benzodiazepines Scrn Ur Cocaine Metabolite U Marijuana (THC) Screen Ethyl Alcohol mg/dL SARS-CoV-2, RNA, NAAT NEGATIVE Coding Level of Care Code 24562 ED Level 3 Diagnoses Bipolar disorder F31.9 Alcohol intoxication F10.929 Complication of substance-induced condition: with unspecified complication
--- NOTE | 2021-10-08 19:09 | Emergency Department Note ---
ED Visit Note Date and Time: October 08, 2021 7:10 PM. Interval History: Sign out received from Dr. Rahat estrada reviewed details of the encounter. Vital Signs: Elevated blood pressure otherwise stable. Limited Exam: Patient is awake and alert. He is nonanxious appearing. Patient appears comfortable. Patient is able to ambulate. Summary: The patient is a 31-year-old male who presented to the emergency department for an evaluation of mental health problems. The patient is a 302 admission. He was excepted on 3 S. for further evaluation. Disposition: 10/08/2021 7:15 PM Total Time: 44 hours and 13 minutes. . : Alcohol intoxication Qualifiers: Complication of substance-induced condition: with unspecified complication Qualified Code(s): F10.929 - Alcohol use, unspecified with intoxication, unspecified
[2021-10-08] MEDS ORDERED: hydrOXYzine HCl 25 MG TAB PO PRN ×2 (20:01)
[2021-10-08] MEDS ORDERED: MAGNESIUM HYDROXIDE SUSP 30 ML UDC PO PRN (20:01)
[2021-10-08] MEDS ORDERED: ACETAMINOPHEN 325 MG TAB PO PRN (20:01)
[2021-10-08] MEDS ORDERED: ALUMINUM/MAGNESIUM SUSP 30 ML UDC PO PRN (20:01)
[2021-10-08] MEDS ORDERED: SODIUM CHLORIDE 0.65% NA SOLN 45 ML (OCEAN) PRN (20:01)
[2021-10-08] MEDS ORDERED: haloperidoL 5 MG TAB PO PRN (20:02)
[2021-10-08] MEDS ORDERED: LORazepam 1 MG TAB PO PRN ×3 (20:35)
[2021-10-08] MEDS ORDERED: Ativan PO Alcohol Withdrawal--Active Protocol PO PRN (20:35)
[2021-10-08] MEDS ORDERED: LORazepam 1 MG TAB PO STA (20:36)
[2021-10-08 22:30] LABS: Appearance Urine Clear (Clear); Bacteria Urine Automated Negative (Negative); Bilirubin Urine Negative (Negative); Blood Urine Negative (Negative); Color Urine Yellow; Epithelial Cell Urine Auto >30 /lpf (0-5); Glucose Urine UA Negative (Negative); Ketones Urine Negative (Negative); Leukocyte Esterase Urine 1+ (Negative); Nitrite Urine Negative (Negative); Protein Urine Negative (Negative); RBC Urine Automated 0-4 /hpf (0-4); Specific Gravity Urine 1.025 (1.000-1.030); Urobilinogen Urine Negative (Negative); WBC Urine Automated >30 /hpf (0-5); pH Urine 5.5 (4.5-7.5)
--- NOTE | 2021-10-09 06:18 | History & Physical ---
Date of Service October 09, 2021 Impression / Recommendations Impression 31 yo male with a reported diagnosis of bipolar disorder, hx of opiate dependence, presented with increasingly erratic behavior involving a weapon while intoxicated soon after misusing Wellbutrin. Wellbutrin is dopaminergic and given his hx of bipolar could precipitate a manic episode. He has reportedly been self medicating with Etoh. He was cooperative in ED on his 302 commitment. Now on AWSS protocol as BP trending up around admission. Patient also notes onset of urinary hesitancy 8/1 am with WBC, negative bacteria but + leuk est. differential--UA vs. uretritis vs prostatis. He denies discharge, hx of renal stones, or urethral stricture. (1) Bipolar disorder: (2) Alcohol intoxication: Complication of substance-induced condition: with unspecified complication Qualified Code(s): F10.929 - Alcohol use, unspecified with intoxication, unspecified (3) Sterile pyuria: Plan The patient was admitted to the [facility] on q15 min checks (behavioral with suicide precautions) for safety. The patient will participate in group, recreational, and milieu therapies and will be offered additional individual and family sessions as clinically appropriate. continue AWSS protocol. Re: pyuria, presumed urethritis will treat with course of doxycycline. 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 Reviewed that Ativan was withdrawal only (continues to deny withdrawal) and that will not be prescribed anyway given substance abuse hx. He has taken 5 mg Buspar before and found it helpful. Risks/benefits/alternatives were reviewed re: antipsychotics for mood and/or psychosis. Discussion included but was not limited to metabolic side effects, risks of TD and suicidal thoughts. There were no abnormal motor movements at baseline. Fasting glucose and lipid panel ordered for baseline monitoring. Will restart Abilify 2.5 mg today and 5 mg qam tomorrow. Confirmed he can afford generic equivalent. Inventory Assets Strengths: employed, loves daughter Needs: housing, resume outpatient treatment Suicide Risk Level Suicide Risk Level: Moderate (q15 min suicide checks) (patient denies since sober) Risk Factors Assessment Male: Yes : Yes Do You Have Access To A Gun?: Yes (need to confirm if confiscated, he is unable to return home) Mental Health Diagnoses: Yes Substance Use Disorders: Yes Previous Attempt: No Previous Psychiatric Hospitalization: No Protective Factors Assessment Responsible for Young Children: Yes (shared custody) Employed: Yes Supportive Family: Yes (mother) Psychiatric History Identifying Data ALISON CHEN is a 31-year-old M who lived in [place] with his girlfriend (reportedly now has a PFA), has a history of opiate dependence, and was admitted on 10/08/21 19:35 on a 302 involuntary commitment for threats to self/others involving a weapon while intoxicated. He was boarding in the ED prior to bed becoming available. Chief Complaint "I don't understand why I'm here as I wasn't seeing things, I only had the gun as I had been cleaning it," claims girlfriend has hx of SIB. History of Present Illness Last night the patient had urinary hesitancy and possible hematuria. Discussed urethritis. Hasn't had before. He is not concerned about STI and is agreeable to follow up with a PCP for swabs if fails to improve. Continues to voice willingness for outpatient treatment. Already spoke to a tray casting machine operator about issues with his house as had put an inheritance into some equity and plans to end the relationship/sell. Has been overall respectful of staff but will make comments to peers about the "nut house" which they view as derrogatory. No evidence of cruz or psychosis. Consistently denies thoughts to harm self or others. ?emergency PFA dropped, does not plan to return to the house. Staff confirmed no outstanding warrants. As per initial consult: The patient had a SHANNA on arrival to the ED of >200, reportedly several hours after he stopped drinking. He states he will have 2-3 beers with dinner and then have a binge episode maybe once a month, and "that day was it." Denies pointing a gun at himself or girlfriend. Alleges that she is mentally unstable in that self-injured and was seen in the ED and released in the past so feels he is being targetted but denies paranoia. There is mention on the chart that he has been off of medications for at least a week. Patient admits that he was taking his girlfriend's Wellbutrin and "that stuff made me manic." states that the past 6 years he has been stable (following release from half-way on probation violations stemming from drug charges (opiate abuse related) and he did complete rehab as a condition of his release. He has been working for a [employer] company and has been spending time with his 8 yo daughter. He is interested in r esuming outpatient care and perhaps a mood stabilizer. Denies any vegetative symptoms of depression, unclear if has irritable episodes outside of alcohol and substance use. He was not able to recall when he was diagnosed with bipolar disorder, states he was "just a kid" and recalls seeing Dr. Garcia and Dr. Ulloa. Denies a hx of inpatient treatment. Recalls that Abilify "helped." Reports a good relationship with his probation office and believes that he can stay with his mother after leave psychiatic facility. per ED CM: Spoke with petitioner [removed as 3rd alliance party] states that Alison has be en struggling with his mental health for years but has been decompensating since this past winter when his grandmother was sick and he began drinking heavily again. She states that Alison has threatened suicide multiple times before but yesterday was more concerning than any other time. She states Alison drank heavily yesterday and took [] new car for two hours. He became angry when she confronted him and flipped out, slamming doors. [] heard Alison in the bedroom loading and cocking his rifle. He took the rifle with him and stated he was going to kill himself. She states he's been having visual and auditory hallucinations, calling her at work stating there were people in the backyard. She states he has pointed his gun at both himself and her. Past Psychiatric History Previous Psych History: mainly as a child/teen saw Dr. Ulloa and Dr. Garcia for various meds Current Psychiatric Diagnosis: Bipolar disorder Outpatient Services: none currently, does not have insurance Previous Psych Admissions: denied Do You Have Access To A Gun?: Yes (need to confirm if confiscated, he is unable to return home) History of Previous Suicide Attempt: No Past Medication Trials: recalls Abilify as previously effective Allergies Allergy/AdvReac Type Severity Reaction Status Date / Time ibuprofen Allergy Mild HIVES/SOB Verified 10/07/21 00:25 bee venom protein (honey bee) Allergy Unknown ANAPHYLAXIS Unverified 10/07/21 00:25 hornet venom Allergy Unknown ANAPHYLAXIS Unverified 10/07/21 00:25 Home Medications Medication Instructions Recorded Confirmed Type No Known Home Medications 10/07/21 10/07/21 History Family History Family History of: Depression Alcohol History Hx of Alcohol Use Over the Past 12 Months: Yes (drinks 2-3x/week, usually 1-2 drinks, sometimes up to 10 or more) AUDIT Total Score: 5 Smoking Use Have You Smoked or Used Tobacco Products in the Last 30 Days: Yes tobacco type: cigarettes Smoking Status: Current every day smoker Smoking packs per day: 1.5 Substance History Hx of Prescription Med Misuse Over the Past 12 Months: No (denies) Hx of Over the Counter Med Misuse Over the Past 12 Months: No (denies) Hx of Inhalent Misuse Over the Past 12 Months: No (denies) Hx of Organic Substance Use Over the Past 12 Months: No (denies) Hx of Illegal Substances/Street Drug Use Over Past 12 Months: No (denies) Problems as a Result of Past Substance Use: Relationships Ended hx of rehab 6 years ago for opiate dependence Personal History Living Arrangements: Home Highest Grade Completed: High School Graduate 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 Other (but cannot return) Number Of Children: 1 daughter age 8 Beliefs That Will Affect Care: None Current Legal Problems: Yes (on probation, good relationship with PO) Hx Legal Problems: Yes (incarceration for violations, initial drug charges) Patient History Medical History Asthma Social History Smoking Status: Current every day smoker Preferred Language: Colombian Communication Ability: Effective Dry Pan Operator Required: No Beliefs That Will Affect Care: None Feels Safe at Home: No and Hesitant to Answer Assistive Devices: Contacts and Glasses Assistive Devices Comment: uses only while driving Review of Systems Review of Systems: All systems reviewed & are unremarkable except as noted in HPI & below Physical Exam Psychiatric: Orientation: alert and oriented x 3 Apperance: appropriately dressed and appropriately groomed Eye Contact: good eye contact Motor Behavior: no abnormal motor movements Speech: normal rate/rhythm/volume of speech Affect: euthymic affect Mood: + depressed mood Thought Process: goal directed thought process Thought Content: reality based without delusions Suicidal Thoughts: denies suicidal thoughts Homicidal Thoughts: denies homicidal thoughts Hallucinations: no auditory hallucinations and no visual hallucinations Cognition: attention grossly intact and language grossly intact Estimated Intelligence: consistent with education level Insight: + limited insight Judgement: + limited judgement Vital Signs (Past 24 Hours): Last Vital Signs Temp 37.1 C 10/08/21 21:00 Pulse 80 10/08/21 21:00 Resp 18 10/08/21 21:00 BP 132/98 10/08/21 21:00 Pulse Ox 98 10/08/21 19:50 O2 Del Method 10/08/21 19:50 Exam Statement: A physical exam was performed in the ED by Dr. Bro for the purposes of medical clearance. I accept that physical as correct and adequate for the purposes of the inpatient physical exam. Results & Data ([facility]) Laboratory Results Laboratory Results - last 24 hr 10/08/21 21:10 Urine Color Yellow Urine Appearance Clear Urine pH 5.5 Ur Specific [place] 1.025 Urine Protein Negative Urine Glucose (UA) Negative Urine Ketones Negative Urine Blood Negative Urine Nitrite Negative Urine Bilirubin Negative Urine Urobilinogen Negative Ur Leukocyte Esterase 1+ H Urine WBC (Auto) >30 H Urine RBC (Auto) 0-4 U Hyaline Cast (Auto) 10-30 H U Epithel Cells (Auto) >30 H Urine Bacteria (Auto) Negative Current Inpatient Medications Current Inpatient Medications: Current Inpatient Medications Acetaminophen (Acetaminophen 325 Mg Tab) 650 mg PO Q4H PRN PRN Reason: Headache or Minor Fever Stop: 11/07/21 20:00 Al Hydrox/Mg Hydrox/Simethicone (Aluminum/Magnesium Susp 30 Ml Udc) 30 ml PO Q4H PRN PRN Reason: GI Upset Stop: 11/07/21 20:00 Haloperidol (Haloperidol 5 Mg Tab) 5 mg PO Q6 PRN PRN Reason: Anxiety/Agitation Stop: 11/07/21 20:01 Hydroxyzine HCl (Hydroxyzine Hcl 25 Mg Tab) 50 mg PO HSZ PRN PRN Reason: Insomnia Stop: 11/07/21 20:00 Hydroxyzine HCl (Hydroxyzine Hcl 25 Mg Tab) 25 mg PO Q4H PRN PRN Reason: Anxiety Stop: 11/07/21 20:00 Lorazepam (Lorazepam 1 Mg Tab) 1 mg PO UD PRN; Protocol PRN Reason: EtOH Withdrawal AWSS Score 6,7 Stop: 11/07/21 20:34 Lorazepam (Lorazepam 1 Mg Tab) 3 mg PO ONCE PRN; Protocol PRN Reason: EtOH Withdrawal AWSS Score 10 & above Stop: 11/07/21 20:34 Lorazepam (Lorazepam 1 Mg Tab) 2 mg PO UD PRN; Protocol PRN Reason: EtOH Withdrawal AWSS Score 8,9 Stop: 11/07/21 20:34 Magnesium Hydroxide (Magnesium Hydroxide Susp 30 Ml Udc) 30 ml PO DAILY PRN PRN Reason: Constipation Stop: 11/07/21 20:00 Sodium Chloride (Sodium Chloride 0.65% Na Soln 45 Ml ([place])) 1 - 2 sprays NA PRN PRN PRN Reason: Nasal Dryness/Congestion Stop: 11/07/21 20:00
[2021-10-09] MEDS: NICOTINE 21 MG/24 HR TDSY TD SCH (09:09)
[2021-10-09] MEDS: NICOTINE POLACRILEX 2 MG GUM MT PRN ×2 (09:10→17:37)
[2021-10-09] MEDS ORDERED: busPIRone 5 MG TAB PO PRN (15:56)
[2021-10-09] MEDS: ARIPiprazole 5 MG TAB PO SCH (17:14)
[2021-10-09] MEDS: DOXYCYCLINE HYCLATE 100 MG CAP PO SCH (21:32)
[2021-10-10] MEDS: DOXYCYCLINE HYCLATE 100 MG CAP PO SCH (08:20)
[2021-10-10] MEDS: ARIPiprazole 5 MG TAB PO SCH (08:20)
[2021-10-10] MEDS: NICOTINE 21 MG/24 HR TDSY TD SCH (08:21)
--- NOTE | 2021-10-10 09:43 | Discharge Summary ---
Date of Service October 10, 2021 History of Present Illness Last night the patient had urinary hesitancy and possible hematuria. Discussed urethritis. Hasn't had before. He is not concerned about STI and is agreeable to follow up with a PCP for swabs if fails to improve. Continues to voice willingness for outpatient treatment. Already spoke to a mails supervisor about issues with his house as had put an inheritance into some equity and plans to end the relationship/sell. Has been overall respectful of staff but will make comments to peers about the "nut house" which they view as derrogatory. No evidence of cruz or psychosis. Consistently denies thoughts to harm self or others. ?emergency PFA dropped, does not plan to return to the house. Staff confirmed no outstanding warrants. As per initial consult: The patient had a SHANNA on arrival to the ED of >200, reportedly several hours after he stopped drinking. He states he will have 2-3 beers with dinner and then have a binge episode maybe once a month, and "that day was it." Denies pointing a gun at himself or girlfriend. Alleges that she is mentally unstable in that self-injured and was seen in the ED and released in the past so feels he is being targetted but denies paranoia. There is mention on the chart that he has been off of medications for at least a week. Patient admits that he was taking his girlfriend's Wellbutrin and "that stuff made me manic." states that the past 6 years he has been stable (following release from correction on probation violations stemming from drug charges (opiate abuse related) and he did complete rehab as a condition of his release. He has been working for a [employer] and has been spending time with his 8 yo daughter. He is interested in resuming outpatient care and perhaps a mood stabilizer. Denies any vegetative symptoms of depression, unclear if has irritable episodes outside of alcohol and substance use. He was not able to recall when he was diagnosed with bipolar disorder, states he was "just a kid" and recalls seeing Dr. Garcia and Dr. Ulloa. Denies a hx of inpatient treatment. Recalls that Abilify "helped." Reports a good relationship with his probation office and believes that he can stay with his mother after leave psychiatic facility. per ED CM: Spoke with petitioner [removed as 3rd alliance party] states that Best has been struggling with his mental health for years but has been decompensating since this past winter when his grandmother was sick and he began drinking h eavily again. She states that Best has threatened suicide multiple times before but yesterday was more concerning than any other time. She states Best drank heavily yesterday and took [] new car for two hours. He became angry when she confronted him and flipped out, slamming doors. [] heard Best in the bedroom loading and cocking his rifle. He took the rifle with him and stated he was going to kill himself. She states he's been having visual and auditory hallucinations, calling her at work stating there were people in the backyard. She states he has pointed his gun at both himself and her. Physical Exam Psychiatric See admission H&P and DOD assessment. Vital Signs (Past 24 Hours) Last Vital Signs Temp 36.7 C 10/10/21 06:49 Pulse 72 10/10/21 06:49 Resp 16 10/10/21 06:49 BP 117/82 10/10/21 06:49 Pulse Ox 98 10/08/21 19:50 O2 Del Method 10/08/21 19:50 Principal Diagnosis bipolar disorder Psychiatric Data See daily stay summary. In short, safety was maintained and the patient was superficiallycooperative with care. Medication changes included a retrial of Abilify and Buspar and initiation of a course of doxycycline for urethritis and they tolerated this well. A family session was held with his mother to confirm housing and that no access to weapons and safety plan was completed prior to discharge. There was no evidence of acute cruz, impulsivity, or behavioral dyscontrol during his stay and he denied withdrawal symptoms. He no longer met criteria for involuntary commitment. Urine culture results were not available at the time he left the unit but are no growth on day 1. He has already been directed to follow up with PCP re: this issue. He was educated re: the longer term risks with Abilify and need for monitoring and declined fasting labs during this stay as focussed on discharge today ROSIO. Day of Discharge Assessment Today the patient voices readiness for discharge. They note improvement in mood and deny thoughts to harm self or others. Thoughts remain organized and they are improved from admission. There is no evidence of psychosis. They agree to take mediations as prescribed and keep follow-up appointments. They are stable for discharge to outpatient level of care. Transition of Care Transition Of Care Record: was reviewed with the patient Advance Directives Advance Directives Information Provided: Yes Advance Directives: No Mental Health Advance Directive: No Advance Directives on File: No Living Will: No Power of Wind Turbine Design Engineer: No Advance Directives Reason:: Declines as Mental Health Visit. Suicide Risk Level Suicide Risk Level Comments: Suicide risk at discharge is deemed low as the patient is no longer requiring 24-hr monitoring, has a safety plan, and is free of suicidal ideation at discharge. Risk Factors Assessment Male: Yes : Yes Do You Have Access To A Gun?: No Mental Health Diagnoses: Yes Substance Use Disorders: Yes Previous Attempt: No Previous Psychiatric Hospitalization: No Protective Factors Assessment Responsible for Young Children: Yes (shared custody) Employed: Yes Supportive Family: Yes (mother) Tobacco Cessation at Discharge Tobacco Cessation Medication Prescribed at Discharge: Offered & Pt Refused Total Time Total Time Spent: Greater Than 30 Minutes Total Time Includes: Examination of the patient, Discharge Planning and Medication Reconciliation Discharge Data Lab Results 10/07/21 10/07/21 10/07/21 00:00 00:00 00:00 WBC 9.06 RBC 4.85 Hgb 14.7 Hct 42.4 MCV 87.4 MCH 30.3 MCHC 34.7 RDW Std Deviation 40.1 RDW Coeff of Rosalie 12.7 Plt Count 295 MPV 8.5 L Immature Gran % (Auto) 0.3 Neut % (Auto) 46.4 Lymph % (Auto) 39.7 [place] % (Auto) 9.3 Eos % (Auto) 3.5 Baso % (Auto) 0.8 Neut # (Auto) 4.20 Lymph # (Auto) 3.60 H [place] # (Auto) 0.84 H Eos # (Auto) 0.32 Baso # (Auto) 0.07 Immature Gran # (Auto) 0.03 H Sodium 141 Potassium 3.9 Chloride 109 H Carbon Dioxide 22 Anion Gap 10 BUN 11 Creatinine 0.64 Est Cr Clr Drug Dosing 196.4 Est GFR ( Amer) > 150.0 Est GFR (Non-Af Amer) 129.6 BUN/Creatinine Ratio 17.2 Glucose 99 Calcium 8.7 Total Bilirubin 0.2 AST 20 ALT 30 Alkaline Phosphatase 64 Total Protein 6.7 Albumin 4.5 Globulin 2.2 L Albumin/Globulin Ratio 2.0 TSH 4.710 H Free T4 0.84 Urine Color Urine Appearance Urine pH Ur Specific [place] Urine Protein Urine Glucose (UA) Urine Ketones Urine Blood Urine Nitrite Urine Bilirubin Urine Urobilinogen Ur Leukocyte Esterase Urine WBC (Auto) Urine RBC (Auto) U Hyaline Cast (Auto) U Epithel Cells (Auto) Urine Bacteria (Auto) Salicylates Urine Opiates Screen Ur Methadone, Qual Acetaminophen Urine Barbiturates Ur Phencyclidine (PCP) U Amphetamin/Meth Scrn MDMA (Ecstasy) Screen U Benzodiazepines Scrn Ur Cocaine Metabolite U Marijuana (THC) Screen Ethyl Alcohol mg/dL SARS-CoV-2, RNA, NAAT 10/07/21 10/07/21 10/07/21 00:00 00:00 00:00 WBC RBC Hgb Hct MCV MCH MCHC RDW Std Deviation RDW Coeff of Rosalie Plt Count MPV Immature Gran % (Auto) Neut % (Auto) Lymph % (Auto) [place] % (Auto) Eos % (Auto) Baso % (Auto) Neut # (Auto) Lymph # (Auto) [place] # (Auto) Eos # (Auto) Baso # (Auto) Immature Gran # (Auto) Sodium Potassium Chloride Carbon Dioxide Anion Gap BUN Creatinine Est Cr Clr Drug Dosing Est GFR ( Amer) Est GFR (Non-Af Amer) BUN/Creatinine Ratio Glucose Calcium Total Bilirubin AST ALT Alkaline Phosphatase Total Protein Albumin Globulin Albumin/Globulin Ratio TSH Free T4 Urine Color Urine Appearance Urine pH Ur Specific [place] Urine Protein Urine Glucose (UA) Urine Ketones Urine Blood Urine Nitrite Urine Bilirubin Urine Urobilinogen Ur Leukocyte Esterase Urine WBC (Auto) Urine RBC (Auto) U Hyaline Cast (Auto) U Epithel Cells (Auto) Urine Bacteria (Auto) Salicylates < 3.0 L Urine Opiates Screen Neg Ur Methadone, Qual Neg Acetaminophen < 3 L Urine Barbiturates Neg Ur Phencyclidine (PCP) Neg U Amphetamin/Meth Scrn Neg MDMA (Ecstasy) Screen Neg U Benzodiazepines Scrn Neg Ur Cocaine Metabolite Neg U Marijuana (THC) Screen Neg Ethyl Alcohol mg/dL 208.2 H SARS-CoV-2, RNA, NAAT 10/07/21 10/07/21 10/08/21 00:00 13:45 21:10 WBC RBC Hgb Hct MCV MCH MCHC RDW Std Deviation RDW Coeff of Rosalie Plt Count MPV Immature Gran % (Auto) Neut % (Auto) Lymph % (Auto) [place] % (Auto) Eos % (Auto) Baso % (Auto) Neut # (Auto) Lymph # (Auto) [place] # (Auto) Eos # (Auto) Baso # (Auto) Immature Gran # (Auto) Sodium Potassium Chloride Carbon Dioxide Anion Gap BUN Creatinine Est Cr Clr Drug Dosing Est GFR ( Amer) Est GFR (Non-Af Amer) BUN/Creatinine Ratio Glucose Calcium Total Bilirubin AST ALT Alkaline Phosphatase Total Protein Albumin Globulin Albumin/Globulin Ratio TSH Free T4 Urine Color Yellow Yellow Urine Appearance Clear Clear Urine pH 6.0 5.5 Ur Specific [place] 1.007 1.025 Urine Protein Negative Negative Urine Glucose (UA) Negative Negative Urine Ketones Negative Negative Urine Blood Negative Negative Urine Nitrite Negative Negative Urine Bilirubin Negative Negative Urine Urobilinogen Negative Negative Ur Leukocyte Esterase Trace H 1+ H Urine WBC (Auto) 1-5 >30 H Urine RBC (Auto) 0-4 0-4 U Hyaline Cast (Auto) 0 10-30 H U Epithel Cells (Auto) 0-5 >30 H Urine Bacteria (Auto) Negative Negative Salicylates Urine Opiates Screen Ur Methadone, Qual Acetaminophen Urine Barbiturates Ur Phencyclidine (PCP) U Amphetamin/Meth Scrn MDMA (Ecstasy) Screen U Benzodiazepines Scrn Ur Cocaine Metabolite U Marijuana (THC) Screen Ethyl Alcohol mg/dL SARS-CoV-2, RNA, NAAT NEGATIVE Hospital Course (1) Bipolar disorder: (2) Alcohol intoxication: (3) Sterile pyuria: Plan The patient was admitted to the [facility] ([facility] mental [facility] unit) on q15 min checks (behavioral with suicide precautions) for safety. The patient will participate in group, recreational, and milieu therapies and will be offered additional individual and family sessions as clinically appropriate. continue AWSS protocol. Re: pyuria, presumed urethritis will treat with course of doxycycline. 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 Reviewed that Ativan was withdrawal only (continues to deny withdrawal) and that will not be prescribed anyway given substance abuse hx. He has taken 5 mg Buspar before and found it helpful. Risks/benefits/alternatives were reviewed re: antipsychotics for mood and/or psychosis. Discussion included but was not limited to metabolic side effects, risks of TD and suicidal thoughts. There were no abnormal motor movements at [facility]. Fasting glucose and lipid panel ordered for baseline monitoring. Will restart Abilify 2.5 mg today and 5 mg qam tomorrow. Confirmed he can afford generic equivalent. Mental Health & Subst Abuse Tx Therapist Name of Therapist: no therapist Post Discharge Appointments Primary Care Physician Name Of Family Doctor: no PCP Smoking Cessation Counseling Tobacco Cessation Medication Prescribed at Discharge: Offered & Pt Refused Discharge Plan Discharge Items Patient Disposition: Home - Self-Care Reason For Visit: BIPOLAR D/O Discharge Diagnosis: bipolar disorder unspecified Activity: Resume your previous activity Non-emergency contact: Primary Care Provider, Psychiatrist and Therapist Call non-emergency contact if: you have any medication questions and your symptoms worsen Follow-up/Referrals: PCP,NO [Primary Care Provider] - Diet: Regular Addtl Attending Provider Instructions: SPECIAL CARE INSTRUCTIONS: 1. Follow through with your scheduled aftercare appointments. If unable to keep an appointment, please call to reschedule. 2. Take your medication only as prescribed. Medication should not be changed or stopped without the approval of your doctor. In the event of worsening symptoms or concerns about side effects, contact your doctor immediately. 3. Utilize new healthy coping skills, anger management skills, and stress management skills learned during your hospitalization. Journal feelings and process them with a support person. Identify stressors or situations that may result in relapse, deterioration or inappropriate behaviors and develop a plan to deal with those issues. 4. If your coping skills are ineffective and you are in crisis, contact your outpatient providers for direction. If unable to reach your providers, please call the [facility] CRISIS LINE AT , go to the [facility] walk-in center at [address], [address], [place], or go to the closest Emergency Room. 5. Avoid alcohol and un-prescribed drugs. 6. You have been provided with the Mental Health Advance Directives Pamphlet for your review. 7. Your condition is stable for discharge to outpatient level of care, but recovery is an ongoing process. Ifthoughts to harm yourself or others return, follow the safety plan developed during your stay. Planning for a safe return home includes securing weapons. Our treatment team recommends weaponsbe removed from the home until your outpatient provider reassesses your progress. In rare cases where the items themselvescannot be removed, guns and ammunitionshould be secured separatelyand keys stored by a reliable personoutside of the home. If you were admitted on an involuntary commitment, the police or other legal authorities may be involved in this process. AFTERCARE APPOINTMENTS: * Please call your insurance company prior to your scheduled appointment to confirm your aftercare providers are covered. Take your insurance information to your appointments. WHO TO CALL AND WHEN: Medical Emergencies: For questions or emergencies related to your hospital stay, please contact the Inpatient Behavioral Health Unit at [phone]. A tutoring clinician is on-call 30/09 for the Behavioral Health Unit for emergencies At any time you feel your situation is an emergency, you may also call 911 immediately. Pending Studies at Discharge: Yes (urine culture results are still pending, see PCP for urethritis) Stand-Alone Forms: My [facility] [employer], Smoking Cessation Medications and DC Order Prescriptions: New doxycycline hyclate 100 mg Capsule 100 mg PO BID Qty: 10 0RF Rx Instructions: take until gone aripiprazole 10 mg tablet 5 mg PO QAM 30 Days Qty: 15 0RF buspirone 5 mg Tablet 5 mg PO TID PRN (Reason: Anxiety) Qty: 30 0RF No Action No Known Home Medications Discharge Orders: Discharge Order (Routine); Ordered 10/10/21 Ordered By: Maria Isabel Dickerson Admission Data Admit Date/Time: 10/08/21 19:35 Attending Provider: Maria Isabel Dickerson Admit Provider: Maria Isabel Dickerson Primary Care Provider: PCP,NO Other Interventions: Discharge Summary Assessment (RN) Last Done: 10/10/21 09:53 PSY Interdisciplinary Discharge Planning Last Done: 10/10/21 10:38 Coding Level of Care Code 02489 D/C day mgmt > 30 min Diagnoses Bipolar disorder F31.9 Alcohol intoxication F10.929 Complication of substance-induced condition: with unspecified complication Sterile pyuria R82.81
== END 2021-10-10 10:50 | disposition home or self-care (01) | DRG 885 ==
LOC: ED 22:54 → 3S 10-08 19:35
DX: F10.929 Alcohol use, unspecified with intoxication, unspecified; Z88.6 Allergy status to analgesic agent; Y90.7 Blood alcohol level of 200-239 mg/100 ml; F41.9 Anxiety disorder, unspecified; Z91.030 Bee allergy status; F17.210 Nicotine dependence, cigarettes, uncomplicated; Z91.14 Patient's other noncompliance with medication regimen; N34.2 Other urethritis; F31.9 Bipolar disorder, unspecified; F11.21 Opioid dependence, in remission

== ENCOUNTER 2024-04-22 22:49 | Inpatient (IN) ==
--- NOTE | 2024-04-22 23:25 | Emergency Department Note ---
History of Present Illness General Chief complaint: Shortness of Breath/Dyspnea Stated complaint: SOB, CHEST PAIN, BACK PAIN, ABD PAIN Time Seen by Provider: 04/22/24 23:17 History of Present Illness Maximum Pain Intensity: 8 This 33-year-old male with a history of hypertension and hyperlipidemia presents ER for flulike illness for the past 2 weeks. Patient states symptoms got progressively worse so this prompted him to come the ER. He complains of cough, congestion, chest pain, dyspnea, headache and sinus pain and congestion. He quit smoking and drinking alcohol the beginning of this year. Patient denies abdominal pain, vomiting, diarrhea. Home Medications Medication Instructions Recorded Confirmed Type fenofibrate nanocrystallized 48 mg 48 mg PO DAILY 04/23/24 04/23/24 History tablet (Tricor) levothyroxine 25 mcg tablet 25 mcg PO DAILY 04/23/24 04/23/24 History olmesartan 20 1 tab PO DAILY 04/23/24 04/23/24 History mg-hydrochlorothiazide 12.5 mg tablet Allergies Allergy/AdvReac Type Severity Reaction Status Date / Time ibuprofen Allergy Mild HIVES/SOB Verified 10/07/21 00:25 bee venom protein (honey bee) Allergy Unknown ANAPHYLAXIS Unverified 10/07/21 00:25 hornet venom Allergy Unknown ANAPHYLAXIS Unverified 10/07/21 00:25 Past Med/Surg History Problem List (Updated 12/15/23 @ 00:07 by Makayla Monterroso) Bipolar disorder Asthma (Chronic) Bronchitis (Chronic) Pneumonia (Chronic) Anxiety Depression Medical History Asthma Social History Smoking Status: Former smoker Tobacco Type: Cigarettes, E-cigarettes / Vaping and Smokeless Tobacco (Dip or Chew) Preferred Language: Kinyarwanda Communication Ability: Effective Visual Impairment: Partially Limited Vehicle Maintenance Technician Required: No Beliefs That Will Affect Care: None Feels Safe at Home: Yes Gender Identity: Male Assistive Devices: Contacts and Glasses Review of Systems A total of 10 systems reviewed and were otherwise negative Physical Exam Vital Signs Vital Signs - 24 hr 04/22/24 22:57 04/22/24 23:00 04/22/24 23:37 Temperature 36.6 C Temperature Source Temporal Artery Scan Pulse Rate 127 H Pulse Rate from SpO2 Sensor Pulse Rhythm Regular Pulse Strength Normal Respiratory Rate 20 Respiratory Effort / Characteristics Non-Labored Spontaneous Non-Labored Spontaneous Respiratory Depth Normal Normal Respiratory Pattern Regular Regular Blood Pressure 114/69 Blood Pressure Mean 84 Blood Pressure Position Sitting Pulse Oximetry 94 99 Oxygen Delivery Method Room Air Room Air Sepsis Recent Fever Within 48 Hours No Sepsis New/Unexplained Change in Mental Status N/A Sepsis Action Taken by Nursing No Action Required 04/22/24 23:47 04/22/24 23:48 04/23/24 00:07 Temperature Temperature Source Pulse Rate 110 H 113 H Pulse Rate from SpO2 Sensor Pulse Rhythm Pulse Strength Respiratory Rate 25 H Respiratory Effort / Characteristics Respiratory Depth Respiratory Pattern Blood Pressure 103/64 Blood Pressure Mean 75 Blood Pressure Position Pulse Oximetry 95 Oxygen Delivery Method Room Air Room Air Sepsis Recent Fever Within 48 Hours Sepsis New/Unexplained Change in Mental Status Sepsis Action Taken by Nursing 04/23/24 00:16 04/23/24 00:30 04/23/24 01:34 Temperature Temperature Source Pulse Rate 105 H 103 H 99 H Pulse Rate from SpO2 Sensor 103 H Pulse Rhythm Pulse Strength Respiratory Rate 24 20 20 Respiratory Effort / Characteristics Respiratory Depth Respiratory Pattern Blood Pressure 94/52 L 102/70 110/72 Blood Pressure Mean 60 80 77 Blood Pressure Position Pulse Oximetry 95 92 95 Oxygen Delivery Method Room Air Room Air Sepsis Recent Fever Within 48 Hours Sepsis New/Unexplained Change in Mental Status Sepsis Action Taken by Nursing VITALS: Vitals are noted on the nurse's note and reviewed by myself. Vital signs reviewed. GENERAL: Pleasant gentleman coughing, in no acute distress, nondiaphoretic, well-developed well-nourished. SKIN: The skin was without rashes, erythema, edema, or bruising. There is no tenting of the skin. Capillary reflex less than 2 seconds. HEAD: Normocephalic atraumatic. EARS: External auditory canals clear, TMs intact EYES: Pupils equal round and reactive to light and accommodation. Conjunctivae without injection, sclerae without icterus. Extraocular movements intact. NOSE: Patent, no discharge. Mild sinus tenderness bilaterally MOUTH: Mucous membranes moist. Pharynx without erythema or exudate. Uvula midline. Airway patent. Tongue does not deviate. NECK: Supple without nuchal rigidity. No lymphadenopathy. No thyromegaly. Cervical spine is nontender. No JVD. HEART: Regular rate and rhythm LUNGS: Mild diffuse inspiratory and end expiratory wheezes . No retractions or accessory muscle use. ABDOMEN: Positive bowel sounds x 4. Normal tympanic percussion. Soft, nontender, without masses or organomegaly. Mathis sign negative. No guarding or rebound tenderness. No CVA tenderness MUSCULOSKELETAL: No muscle atrophy, erythema, or edema noted. NEURO: Patient was alert and oriented to person place and time. Normal sensation to light and sharp touch. No focal neurological deficits. Course Administered Medications Discontinued Medications Albuterol (Albut/Ipratrop 3mg/0.5mg Neb 3 Ml Vial) 3 ml NEB NOW STA; Protocol Stop: 04/22/24 23:23 Last Admin: 04/22/24 23:33 Dose: 3 ml Documented By: ROSIE Sodium Chloride (Nss) 1,000 mls @ 999 mls/hr IV .Q1H1M ONE Stop: 04/23/24 00:23 Last Infusion: 04/23/24 01:35 Dose: Infused Documented By: Admin: 04/22/24 23:34 Dose: 999 mls/hr Documented By: ROSIE Piperacillin Sod/Tazobactam Sod (Zosyn) 4.5 gm in 100 mls @ 200 mls/hr IV NOW ONE; Protocol Stop: 04/23/24 00:46 Last Infusion: 04/23/24 01:34 Dose: Infused Documented By: Admin: 04/23/24 00:55 Dose: 200 mls/hr Documented By: ROSIE Sodium Chloride (Nss) 1,000 mls @ 999 mls/hr IV .Q1H1M JADON Stop: 04/23/24 02:30 Last Admin: 04/23/24 00:55 Dose: 999 mls/hr Documented By: ROSIE Ioversol (Optiray 320 125ml) 87 ml IV ONCE ONE Stop: 04/23/24 00:50 Last Admin: 04/23/24 00:49 Dose: 87 ml Documented By: BLANCA Methylprednisolone (Methylprednisolone 125 Mg/2 Ml Vial) 125 mg IV NOW STA Stop: 04/22/24 23:23 Last Admin: 04/22/24 23:33 Dose: 125 mg Documented By: ROSIE Potassium Chloride (Potassium Chloride Crtab 20 Meq Tabcr) 40 meq PO NOW STA Stop: 04/23/24 00:27 Last Admin: 04/23/24 00:55 Dose: 40 meq Documented By: ROSIE Medical Decision Making Medical Records Attestation: I reviewed the patient's medical records. Home Medications Current Medication List: was personally reviewed by me Laboratory Data Attestation: I reviewed the patient's lab results. 04/22/24 23:34 04/22/24 23:34 Lab Results 04/22/24 04/22/24 Range/Units 22:50 23:34 WBC 18.69 H (4.8-10.8) K/ul RBC 4.70 (4.70-6.10) M/uL Hgb 14.5 (14.0-18.0) g/dl Hct 39.9 L (42.0-52.0) % MCV 84.9 (80.0-100.0) fL MCH 30.9 (25.0-34.0) pg MCHC 36.3 H (32.0-36.0) g/dL RDW Std Deviation 37.6 (36.4-46.3) fL RDW Coeff of Rosalie 12.2 (11.5-14.5) % Plt Count 463 H (130-400) K/uL MPV 9.2 L (9.4-12.4) fL Immature Gran % (Auto) 2.6 % Neut % (Auto) 82.5 % Lymph % (Auto) 5.7 % [place] % (Auto) 8.5 % Eos % (Auto) 0.3 % Baso % (Auto) 0.4 % Neut # (Auto) 15.43 H (1.40-6.50) K/uL Lymph # (Auto) 1.06 L (1.20-3.40) K/uL [place] # (Auto) 1.59 H (0.11-0.59) K/uL Eos # (Auto) 0.06 (0.00-0.50) K/uL Baso # (Auto) 0.07 (0.00-0.20) K/uL Immature Gran # (Auto) 0.48 H (0.01-0.20) K/uL Sodium 126 L (136-145) mmol/L Potassium 3.0 L (3.5-5.1) mmol/L Chloride 92 L (98-107) mmol/L Carbon Dioxide 21 (21-32) mmol/L Anion Gap 13 H (3-11) BUN 38 H (6-23) mg/dl Creatinine 1.22 (0.6-1.4) mg/dl Est Cr Clr Drug Dosing 101.6 ml/min eGFR 79.78 BUN/Creatinine Ratio 31.1 H (10-20) Glucose 125 H (70-99(Fasting)) mg/dl Osmolality 274 L (280-300) mOsm/kg Lactate 1.3 (0.4-2.0) mmol/L Calcium 8.5 L (8.6-10.3) mg/dl Magnesium 2.9 H (1.7-2.4) mg/dl Total Bilirubin 1.0 (0.2-1.0) mg/dl Direct Bilirubin 0.4 H (0-0.2) mg/dl AST 74 H (13-39) U/L ALT 79 H (7-52) U/L Alkaline Phosphatase 85 (34-104) U/L Troponin I High Sens 14.3 (0-20) pg/ml Total Protein 7.9 (6.0-8.3) gm/dl Albumin 3.8 (3.4-5.0) gm/dl Procalcitonin 4.72 H (0-0.5) ng/ml Adenovirus (PCR) Not Detected (NotDetected) B. pertussis DNA (PCR) Not Detected (NotDetected) B.parapertussis DNA PCR Not Detected (NotDetected) C. pneumoniae DNA (PCR) Not Detected (NotDetected) Coronavirus OC43 (PCR) Not Detected (NotDetected) Coronavirus HKU1 (PCR) Not Detected (NotDetected) Coronavirus 229E (PCR) Not Detected (NotDetected) SARS-CoV-2 (PCR) Not Detected (NotDetected) Coronavirus NL63 (PCR) Not Detected (NotDetected) Human Metapneumovir PCR Not Detected (NotDetected) Influenza A (H3) PCR DETECTED A (NotDetected) Influenza Type B (PCR) Not Detected (NotDetected) M. pneumoniae (PCR) Not Detected (NotDetected) Parainfluenza 1 (PCR) Not Detected (NotDetected) Parainfluenza 2 (PCR) Not Detected (NotDetected) Parainfluenza 3 (PCR) Not Detected (NotDetected) Parainfluenza 4 (PCR) Not Detected (NotDetected) RSV (PCR) Not Detected (NotDetected) Entero/Rhino (PCR) Not Detected (NotDetected) Imaging Data Attestation: I personally reviewed and interpreted this imaging study as follows: Radiologist's Impression: Chest CTA 04/22/24 23:22 EXAM: CT angio chest PE protocol CLINICAL HISTORY: PE TECHNIQUE: Contiguous axial images were obtained from the neck base through the upper abdomen following intravenous administration of iodinated contrast material. Angiographic images were processed, 3D MIP images were acquired for interpretation. If IV contrast material had not been administered, the likelihood of detecting abnormalities relevant to the patient's condition would have been substantially decreased. Coronal and sagittal 3-D MIPs were likewise performed and indicated to increase the sensitivity of detectin diffuse clinically relevant pathology. CT scan was performed according to ALARA (as low as reasonable achievable). COMPARISON: None. FINDINGS: Multiple patchy consolidations are noted involving both lungs predominantly on left side Multiple tiny centrilobular nodular infiltrates are noted in both lungs- suggestive of endobronchial spread of disease. Enlarged mediastinal and right hilar nodes also seen- reactive. Adequate contrast bolus without evidence of pulmonary embolism. The central airways are patent. No pleural effusion. The heart, aorta, and pulmonary arteries are of normal size and configuration. There are no appreciable coronary artery and aortic atherosclerotic calcifications. No pericardial effusion is identified. The thyroid is unremarkable. No axillary lymphadenopathy is noted. No suspicious lytic or sclerotic osseous lesions are identified. IMPRESSION: 1. No evidence of pulmonary embolism. 2. Multiple patchy consolidations are noted involving both lungs predominantly on left side 3. Multiple tiny centrilobular nodular infiltrates are noted in both lungs-suggestive of endobronchial spread of disease. Electronically signed by Rodrick Ramirez 04-23-2024 01:57 AM Chest X-Ray 04/22/24 23:22 Exam(s): XR CXR 1 VIEW EXAM: XR Chest, 1 View CLINICAL HISTORY: Reason for exam: Sepsis. TECHNIQUE: Frontal view of the chest. COMPARISON: 09/15/16 FINDINGS: Lungs: Left perihilar consolidation concerning for pneumonia. Additional bilateral hazy opacities may represent additional regions of pneumonia. Pleural space: No pleural effusion or pneumothorax. Heart: No cardiomegaly or pulmonary vascular congestion. Bones/joints: No acute fracture. No dislocation. IMPRESSION: 1. Left perihilar consolidation concerning for pneumonia. 2. Additional bilateral hazy opacities may represent additional regions of pneumonia. Electronically signed by: Grace Lee M.D. 04/23/24 00:[address] 04/22/24 23:22 EXAM: CT head/brain wo con CLINICAL HISTORY: WADE TECHNIQUE: Multiple axial images are obtained from the skull base to the vertex without contrast. CT scan was performed according to ALARA (as low as reasonably achievable). COMPARISON: none FINDINGS: The brain shows normal morphology, attenuation, and volume for age. No evidence of space occupying lesion, hemorrhage, edema, mass effect, midline shift, extra axial collection, or hydrocephalus is noted. Ventricles, sulci, and basal cisterns are symmetric and normal in size and configuration. The jean-white matter differentiation is preserved. Visualized mastoid air cells are well aerated. Bilateral ethmoidal and sphenoidal sinusitis. Orbital contents are within normal limits. Bony structures are intact. IMPRESSION: 1. No evidence of acute intracranial abnormality is demonstrated Electronically signed by Rodrick Ramirez 04-23-2024 01:41 AM MDM Narrative Prior records/ancillary studies reviewed. Triage Nursing notes reviewed. Additional history obtained from the nursing. The patient's history was concerning for respiratory difficulties. Differential diagnosis: Etiologies such as infections, reactive airway disease, pneumonia, pneumothorax, COPD, CHF, cardiac ischemia, pulmonary embolism, musculoskeletal, gastrointestinal, as well as others were entertained. Physical examination: As above. ER treatment provided: An order was placed for continuous cardiac monitoring. The monitor shows a rate of 60-1 30 with a sinus rhythm per my interpretation. IV fluids, nebulizer, Solu-Medrol Zosyn was ordered for multifocal pneumonia Potassium was replaced On reassessment the patient felt better. Diagnostic interpretation by me: The electrocardiogram was ordered for SOB. ECG: Normal sinus, normal intervals, no acute ST-T wave changes, rate of 112. Impression sinus tachycardia independently interpreted by myself The labs Independently Interpreted by myself revealed leukocytosis, hyponatremia, osmolarity levels were sent Elevated procalcitonin Imaging studies: Imaging was reviewed and read by radiology Consultation: A consultation was placed with the hospitalist. The case was discussed and diagnostics were reviewed. The patient was evaluated in the ER for further treatment. This appears to be consistent with multifocal pneumonia who also has influenza along with hyponatremia and mild hyperglycemia. Patient's been sick with flu symptoms for the past 2 weeks. He got much worse and I believe the influenza is a positive persistent test on the [employer]. He was treated for pneumonia. Medicine was consulted case discussed. He will be admitted to the medical service. By the evaluation outlined above emergent etiologies such as CHF, cardiac ischemia, pulmonary embolism, reactive airway disease, pneumothorax, musculoskeletal, as well as others were deemed relatively unlikely. The pt informed about the findings as listed above. All questions were answered and pleased with the treatment. The chart was completed utilizing [employer] Speech voice recognition software. Grammatical errors, random word insertions, pronoun errors, and incomplete sentences are an occassional consequence of this system due to software limitations, ambient noise, and hardware issues. Any formal questions or concerns about the content, text, or information contained within the body of this dictation should be directly addressed to the physician business support assistant for clarification. Impression & Plan Multifocal pneumonia, Influenza A, Acute hyponatremia Discharge Plan Visit Data Chief Complaint: Shortness of Breath/Dyspnea Stated Complaint: SOB, CHEST PAIN, BACK PAIN, ABD PAIN ED Provider: Melissa Bro ED Midlevel Provider: Nathaly Lancaster Discharge Problem: Multifocal pneumonia, Influenza A, Acute hyponatremia Patient Disposition: Admitted As Inpatient Condition: Fair Forms Stand Alone Forms: My [facility] [employer] Prescriptions Prescriptions: No Action levothyroxine 25 mcg tablet 25 mcg PO DAILY olmesartan-hydrochlorothiazide 20-12.5 mg tablet 1 tab PO DAILY fenofibrate nanocrystallized [Tricor] 48 mg Tablet 48 mg PO DAILY Referrals Referrals: Kemar Flowers MD [Primary Care Provider] -
[2024-04-22] MEDS: ALBUT/IPRATROP 3MG/0.5MG NEB 3 ML VIAL NEB STA (23:33)
[2024-04-22] MEDS: methylPREDNISolone 125 MG/2 ML VIAL IV STA (23:33)
[2024-04-22] MEDS: SODIUM CHLORIDE 0.9% 1,000 ML IV ONE (23:34)
--- OUTSIDE RECORDS SUMMARY | 2024-04-22 23:59 | External Medical Summary | Summary of Care ---
Author Name Unknown Organization [facility] Address [address] [facility] [place] [address] Phone [phone] Care Team Providers Care Frit Burner Name Role Phone Kemar Flowers MD Primary Care Provider [phone] Encounter Details Date Type Department Care Team (Late st Contact Info) Description 12/23/2023 Orders Only PATIENT PORTAL DO NOT DELETE THIS DEPT USED BY KAN ALVAREZ [id number] Allergies Active Allergy Reactions Criticality Noted Date Comments Ibuprofen Anaphylaxis High 05/09/2023 Ibuprofen Sodium 07/15/2005 Trouble breathing documented as of this encounter (statuses as of 12/23/2023) Medications Medication Sig Dispensed Refills Start Date End Date Status FLONASE 50 MCG/ACT NA SUSPIndications:Acute sinusitis two sprays each nostril once daily 1 BOTTLE 5 11/13/2006 Active Additional Information Patient not taking.Reported on 12/16/2023 Fenofibrate 48 MG Oral Tablet (Tricor)Indications:H ypertriglyceridemia Take 1 Tablet by mouth in the morning. 30 Tablet 5 05/14/2023 Active Levothyroxine Sodium 25 MCG Oral Tablet (Levoxyl)Indications: Subclinical hypothyroidism Take 1 Tablet by mouth in the morning. (at least 30 min prior to breakfast or other meds). 30 Tablet 11 05/14/2023 Active Ventolin HFA 108 (90 Base) MCG/ACT Inhalation Aerosol SolutionIndications:W heezing Inhale 2 Puffs by mouth every 4 hours as needed for Wheezing. 6.7 g 3 12/16/2023 Active busPIRone HCl 5 MG Oral Tablet (Buspar)Indications:A nxiety Take 1 Tablet by mouth 2 times a day as needed (anxiety). 90 Tablet 3 12/16/2023 Active Olmesartan Medoxomil-HCTZ 20-12.5 MG Oral TabletIndications:Hyp ertension goal BP (blood pressure) < 140/90 Take 1 Tablet by mouth in the morning. 30 Tablet 5 12/16/2023 Active documented as of this encounter (statuses as of 12/23/2023) Active Problems Problem Noted Date Diagnosed Date Hypertriglyceridemia 12/16/2023 Hypertension goal BP (blood pressure) < 140/90 1 Anxiety 12/16/2023 Class 2 obesity due to exces s calories without serious comorbidity with body mass index (BMI) of 35.0 to 35.9 in adult 05/09/2023 Bipolar disorder 05/09/2023 Bipolar disorder, current episode mixed, moderat e 10/15/2021 Possible alcohol use disorder on screening for a lcoholism 10/15/2021 documented as of this encounter (statuses as of 12/23/2023) Resolved Problems Problem Noted Date Diagnosed Date Resolved Date Esophageal reflux 02/20/2006 10/15/2021 ALLERGIC RHINITIS - MIXED TYPE 07/15/2005 10/15/2021 CHR ALLRG CONJUNCTIV NEC 07/15/200510/2021 Asthma with severity to be determined 07/15/2005 10/15/2021 Overview: ICD-10 update of inactive term BIPOLAR AFFEC, MIXED-MOD 06/18/200510/2021 ATTN DEFIC NONHYPERACT 06/18/200510/15 documented as of this encounter (statuses as of 12/23/2023) Immunizations Name Administration Dates Next Due DTaP Dipth/Tet/Acell Pertussis (Infanrix), Peds 06/21/1994,01/21/1991,1989, 990,1989 Hepatitis B, 0-19 yrs 05/23/1994,12/29/1993,11/08 MMR - Measles/Mumps/Rubella Vaccine 09/22/1998,0 09/04/1990 OPV - Polio Virus Vaccine (Oral) 995,01/21/1991,1989, 990 documented as of this encounter Social History Tobacco Use Types Packs/Day Years Used Date Smoking Tobacco: Every Day Cigarettes 0.5 12.7 Started: 04/15/2011 Smokeless Tobacco: Never Alcohol Use Standard Drinks/Week Comments Yes 4 (1 standard drink = 0.6 oz pur e alcohol) daily Hunger Vital Sign Answer Date Recorded Within the past 12 months, y ou worried that your food would run out before you got the money to buy more. Patient declined Within the past 12 months, t he food you bought just didn't last and you didn't have money to get more. Patient declined 08/2023 Childcare Answer Date Recorded Do you feel overwhelmed with taking care of a child, family member or friend? No 12/14/2023 Does your family need help f inding childcare? (Household - for ages 0-17 years) Not on file 12/14/2023 Clothing Answer Date Recorded Have you been unable to get clothing when it was really needed? No 12/14/2023 Is your family able to get c lothes or diapers when needed? (Household - for ages 0-17 years) Not on file 12/14/2023 Personal Safety Answer Date Recorded Do you feel unsafe or have concerns for your saf ety? No 12/14/2023 Do you have concerns for you r family's safety? (Household - for ages 0-17 years) Not on file 12/14/2023 Utilities Answer Date Recorded Do you have trouble paying y our heating, water, or electric bill? No 12/14/2023 Is your family able to pay t he heat, water, or electric bill? (Household - for ages 0-17 years) Not on file 12/14/2023 Does your family have access to good internet? (Household - for ages 0-17 years) Not on file 12/14/2023 Employment Status Answer Date Recorded Are you unemployed or without regular income? No 12/14/2023 Does the household have a re gular source of income? (Household - for ages 0-17 years) Not on file 12/14/2023 Social Connections Answer Date Recorded How often do you feel lonely or isolated from th ose around you? Always 12/14/2023 Financial Resource Strain Answer Date R ecorded Do you have any trouble payi ng for your medications, or do you think you might in the future? No 12/14/2023 Does your family have troubl e paying for medicine? (Household - for ages 0-17 years) Not on file 12/14/2023 Transportation Needs Answer Date Record ed Do you have trouble getting a ride to medical visits or work? (Adult - for ages 18 years and over) Not on file 12/14/2023 Does your family have a hard time getting a ride to doctors visits? (Household - for ages 0-17 years) Not on file 12/14/2023 Has lack of transportation k ept you from medical appointments, meetings, work, or from getting things needed for daily living? Check all that apply. No 12/14/2023 Do you (or your family) have trouble finding or paying for a ride (transportation)? (Household - for ages 0-17 years) Not on file 12/14/2023 Housing Stability Answer Date Recorded Do you currently live in a s helter or have no steady place to sleep at night? No 12/14/2023 Do you think you are at risk of becoming homeless? (Adult - for ages 18 years and over) Not on file 12/14/2023 Does your family worry about paying for your home or becoming homeless? (Household - for ages 0-17 years) Not on file 1 Are you homeless or worried that you might be in the future? No 12/14/2023 Are you (or your family) ger eless or worried that you might be in the future? (Household - for ages 0-17 years) Not on file Food Insecurity Answer Date Recorded Do you need food for this week? No 12/14/2023 Are you able to get enough f ood for your family? (Household - for ages 0-17 years) Not on file 12/14/2023 Does your family need food t his week? (Household - for ages 0-17 years) Not on file 12/14/2023 Do you always have enough fo od for your family? (Household - for ages 0-17 years) Not on file 12/14/2023 Sex and Gender Information Value Date Recorded Sex Assigned at Male 12/14/2023 10:49 PM EDT Gender Identity Male 12/14/2023 10:49 PM EDT Sexual Orientation Straight 12/14/2023 10 :49 PM EDT Job Start Date Occupation Industry Not on file Not on file Not on file documented as of this encounter Plan of Treatment Upcoming Encounters Date Type Department Care Team (Late st Contact Info) Description 01/01/2024 9:30 AM EDT Nurse Only Ancillary Department, [facility] [address] [place] [address] [place], Nurse [address] [place] [address] 03/17/2024 7:40 AM EST Office Visit [facility] [address] [place] [phone] JulyKemar MD [address] [place] [address] 05/10/2024 8:20 AM EST Office Visit [facility] [address] [place] [facility] [place] [phone] JulyKemar MD [address] [place], [place] [phone] Health Maintenance Due Date Last Done Comments Pneumococcal Vaccine: Pediatrics (0 to 5 Years) and At-Risk Patients (6 to 64 Years) (1 of 2 - PCV) 05/26/1995 DTap/Tdap Vaccines (6 - Tdap) 12/03/2002 12/02/2002, 06/21/1994, 06/21/1994, Additional history exists HIV Screening 2004 Albumin/Creatinine Ratio 05/26/2007 Hepatitis C Screening 05/26/2007 COVID-19 Vaccine ( season) 2023 Influenza Vaccine (FLU shot) (#1) 2023 GFR 05/08/2024 05/09/2023 TSH 12/12/2024 12/13/2023, 0303/2023, 06/25/2005 Hepatitis B Vaccine Completed 05/23/1994, 05/23/1994, 12/29/1993, Additional history exists HPV (Gardasil) Vaccine Aged Out No lo nger eligible based on patient's age to complete this topic MENINGOCOCCAL (MENACTRA/MENVEO) Aged Out No longer eligible based on patient's age to complete this topic documented as of this encounter Medical Devices Not on filedocumented as of this encounter Care Teams Frit Burner Relationship Specialty Start Date End Date July, Kemar Arana MD [address] [place] [address] PCP - General Family Medicine 05/06/23 documented as of this encounter
--- OUTSIDE RECORDS SUMMARY | 2024-04-22 23:59 | External Medical Summary ---
Author Name Unknown Address Unknown Organization K01:[facility] [place] [address] [facility] [id number] Laboratory Report Ordering Provider Test Date Status 12/13/2023 14:34:58 Final Observation Date Value Abnormality Reference (Units ) Status TSH 12/13/2023 14:34:58 1.86 0.27-4.20 (uIU/mL) Final Performing Location [facility] - [address] [facility] [id number]
--- OUTSIDE RECORDS SUMMARY | 2024-04-22 23:59 | External Medical Summary | Summary of Care ---
Author Name Unknown Organization [facility] Address [address] [place] [address] Phone [phone] Care Team Providers Care Receptionist Scheduler Name Role Phone Kemar Flowers MD Primary Care Provider [phone] Reason for Visit * Reason Comments Outpatient Testing Encounter Details Date Type Department Care Team (Late st Contact Info) Description 12/13/2023 2:30 PM EDT Laboratory Laboratory, [facility] [address] [place] [phone] [facility] [address] [place] [address] Subclinical hypothyroidism Allergies Active Allergy Reactions Criticality Noted Date Comments Ibuprofen Anaphylaxis High 05/09/2023 Ibuprofen Sodium 07/15/2005 Trouble breathing documented as of this encounter (statuses as of 12/13/2023) Medications Medication Sig Dispensed Refills Start Date End Date Status FLONASE 50 MCG/ACT NA SUSPIndications:Acute sinusitis two sprays each nostril once daily 1 BOTTLE 5 11/13/2006 Active ALBUTEROL 90 MCG/ACT IN AERSIndications:Asthma , severity to be determined,Acute bronchitis, antibiotics not indicated 2 puffs every 4 hrs. as needed for cough, wheeze, chest tightness or shortness of breath and prior exercise 1 6 02/25/2007 Active AUGMENTIN 875-125 MG PO TABSIndications:Cellul itis of face 1 TABLET EVERY 12 HOURS until gone. Take with food 20 0 07/22/2007 Active Fenofibrate 48 MG Oral Tablet (Tricor)Indications:Hy pertriglyceridemia Take 1 Tablet by mouth in the morning. 30 Tablet 5 05/14/2023 Active Levothyroxine Sodium 25 MCG Oral Tablet (Levoxyl)Indications:S ubclinical hypothyroidism Take 1 Tablet by mouth in the morning. (at least 30 min prior to breakfast or other meds). 30 Tablet 11 05/14/2023 Active documented as of this encounter (statuses as of 12/13/2023) Active Problems Problem Noted Date Diagnosed Date Class 2 obesity due to exces s calories without serious comorbidity with body mass index (BMI) of 35.0 to 35.9 in adult 05/09/2023 Bipolar disorder 05/09/2023 Bipolar disorder, current episode mixed, moderat e 10/15/2021 Possible alcohol use disorder on screening for a lcoholism 10/15/2021 documented as of this encounter (statuses as of 12/13/2023) Resolved Problems Problem Noted Date Diagnosed Date Resolved Date Esophageal reflux 02/20/2006 10/15/2021 ALLERGIC RHINITIS - MIXED TYPE 07/15/2005 10/15/2021 CHR ALLRG CONJUNCTIV NEC 07/15/200510/2021 Asthma with severity to be determined 07/15/2005 10/15/2021 Overview: ICD-10 update of inactive term BIPOLAR AFFEC, MIXED-MOD 06/18/200510/2021 ATTN DEFIC NONHYPERACT 06/18/200510/15 documented as of this encounter (statuses as of 12/13/2023) Immunizations Name Administration Dates Next Due DTaP [...] = 0.6 oz pur e alcohol) daily Utilities Answer Date Recorded Do you have trouble paying y our heating, water, or electric bill? (Adult - for ages 18 years and over) Not on file 08/26/2023 Is your family able to pay t he heat, water, or electric bill? (Household - for ages 0-17 years) Not on file 08/26/2023 Does your family have access to good internet? (Household - for ages 0-17 years) Not on file 08/26/2023 Social Connections Answer Date Recorded How often do you feel lonely or isolated from those around you? (Adult - for ages 18 years and over) Not on file 08/26/2023 Sex and Gender Information Value Date Recorded Sex Assigned at Not on file Gender Identity Not on file Sexual Orientation Not on file Job Start Date Occupation Industry Not on file Not on file Not on file documented as of this encounter Plan of Treatment Upcoming Encounters Date Type Department Care Team (Late st Contact Info) Description 12/19/2023 7:40 AM EDT Office Visit [facility] [address] [place] [phone] Kemar Flowers MD [address] [place] [address] 05/10/2024 8:20 AM EST Office Visit [facility] [address] [place] [phone] Kemar Flowers MD [address], [place] [phone] Pending Results Name Type Priority Associated Diagnoses Date /Time TSH WITH FREE T4 IF INDICATED Lab Routine Subclinical hypothyroidism 12/13/2023 2:34 PM EDT Health Maintenance Due Date Last Done Comments Pneumococcal Vaccine: Pediatrics (0 to 5 Years) and At-Risk Patients (6 to 64 Years) (1 of 2 - PCV) 05/26/1995 DTap/Tdap Vaccines (6 - Tdap) 12/03/2002 12/02/2002, 06/21/1994, 06/21/1994, Additional history exists HIV Screening 2004 Hepatitis C Screening 05/26/2007 COVID-19 Vaccine ( season) 2023 Influenza Vaccine (FLU shot) (#1) 2023 TSH 05/08/2024 05/09/2023, 06/25/2005 Hepatitis B Vaccine Completed 05/23/1994, 05/23/1994, 12/29/1993, Additional history exists HPV (Gardasil) Vaccine Aged Out No lo nger eligible based on patient's age to complete this topic MENINGOCOCCAL (MENACTRA/MENVEO) Aged Out No longer eligible based on patient's age to complete this topic documented as of this encounter Medical Devices Not on filedocumented as of this encounter Visit Diagnoses Diagnosis Subclinical hypothyroidism Other specified acquired hypothyroidism documented in this encounter Care Teams Receptionist Scheduler Relationship Specialty Start Date End Date July, Kemar Arana MD [address] [place] [address] PCP - General Family Medicine 05/06/23 documented as of this encounter
--- OUTSIDE RECORDS SUMMARY | 2024-04-22 23:59 | External Medical Summary | Summary of Care ---
Author Name Unknown Organization [facility] Address [address] [place] [address] Phone [phone] Care Team Providers Care Financial Compliance Officer Name Role Phone Kemar Flowers MD Primary Care Provider [phone] Reason for Visit * Reason Comments Follow Up Pt here for mental h ealth and meds check.Pt is having anxiety attacks and dizziness still.Pt has brought blood pressure readings with him for 9/223pm - 144/50428 pm - [id number] 151/923236ze 151/103Pt needs new script for albuterol inhaler. Encounter Details Date Type Department Care Team (Late st Contact Info) Description 12/16/2023 4:00 PM EDT Office Visit [facility] [address] [place] [address] Kemar Flowers MD [address] [place] [address] Anxiety*; Hypertension goal BP (blood pressure) < 140/90; Hypertriglyceridemia; Possible alcohol use disorder on screening for alcoholism; Wheezing Allergies Active Allergy Reactions Criticality Noted Date Comments Ibuprofen Anaphylaxis High 05/09/2023 Ibuprofen Sodium 07/15/2005 Trouble breathing documented as of this encounter (statuses as of 12/16/2023) Medications Medication Sig Dispensed Refills Start Date End Date Status FLONASE 50 MCG/ACT NA SUSPIndications:Acu te sinusitis two sprays each nostril once daily 1 BOTTLE 5 11/13/2006 Active Additional Information Patient not taking.Reported on 12/16/2023 Fenofibrate 48 MG Oral Tablet (Tricor)Indications :Hypertriglyceridem ia Take 1 Tablet by mouth in the morning. 30 Tablet 5 05/14/2023 Active Levothyroxine Sodium 25 MCG Oral Tablet (Levoxyl)Indication s:Subclinical hypothyroidism Take 1 Tablet by mouth in the morning. (at least 30 min prior to breakfast or other meds). 30 Tablet 11 05/14/2023 Active Ventolin HFA 108 (90 Base) MCG/ACT Inhalation Aerosol SolutionIndications :Wheezing Inhale 2 Puffs by mouth every 4 hours as needed for Wheezing. 6.7 g 3 12/16/2023 Active busPIRone HCl 5 MG Oral Tablet (Buspar)Indications :Anxiety Take 1 Tablet by mouth 2 times a day as needed (anxiety). 90 Tablet 3 12/16/2023 Active Olmesartan Medoxomil-HCTZ 20-12.5 MG Oral TabletIndications:H ypertension goal BP (blood pressure) < 140/90 Take 1 Tablet by mouth in the morning. 30 Tablet 5 12/16/2023 Active ALBUTEROL 90 MCG/ACT IN AERSIndications:Ast hma, severity to be determined,Acute bronchitis, antibiotics not indicated 2 puffs every 4 hrs. as needed for cough, wheeze, chest tightness or shortness of breath and prior exercise 1 6 02/25/2007 4 Discontinue d(Medicatio n List Clean Up) AUGMENTIN 875-125 MG PO TABSIndications:Chante lulitis of face 1 TABLET EVERY 12 HOURS until gone. Take with food 20 0 07/22/2007 4 Discontinue d(Medicatio n List Clean Up) documented as of this encounter (statuses as of 12/16/2023) Active Problems Problem Noted Date Diagnosed Date [...] as of this encounter (statuses as of 12/16/2023) Resolved Problems Problem Noted Date Diagnosed Date Resolved Date Esophageal reflux 02/20/2006 10/15/2021 ALLERGIC RHINITIS - MIXED TYPE 07/15/2005 10/15/2021 CHR ALLRG CONJUNCTIV NEC 07/15/200510/2021 Asthma with severity to be determined 07/15/2005 10/15/2021 Overview: ICD-10 update of inactive term BIPOLAR AFFEC, MIXED-MOD 06/18/200510/2021 ATTN DEFIC NONHYPERACT 06/18/200510/15 documented as of this encounter (statuses as of 12/16/2023) Immunizations Name Administration Dates Next Due DTaP [...] No 12/14/2023 Does the household have a [facility] source of income? (Household - for ages [...] on file documented as of this encounter Last Filed Vital Signs Vital Sign Reading Time Taken Comments Blood Pressure 156/94 12/16/2023 3:59 PM EDT Pulse 94 12/16/2023 3:59 PM EDT Temperature 37.1 C (98.7 F) 12/16/2023 3:59 PM ED T Respiratory Rate 16 12/16/2023 3:59 PM EDT Oxygen Saturation 95% 12/16/2023 3:59 PM EDT Inhaled Oxygen Concentration - - Weight 112.1 kg (247 lb 3.2 oz) 12/16/2023 3:59 PM EDT Height 175.3 cm (5' 9") 12/16/2023 3:59 PM EDT Body Mass Index 36.51 12/16/2023 3:59 PM EDT documented in this encounter Progress Notes * Kemar Flowers MD - 12/16/2023 5:24 PM EDT Images from the original note were not included. Assessment and Plan 1. Anxiety Continue BuSpar as needed. Consider Lamictal for control of bipolar disorder moving forward given concern of weight gain. - busPIRone HCl 5 MG Oral Tablet (Buspar); Take 1 Tablet by mouth 2 times a day as needed (anxiety). Dispense: 90 Tablet; Refill: 3 2. Hypertension goal BP (blood pressure) < 140/90 Blood pressure elevated at 156/94. Start olmesartan hydrochlorothiazide. Return in 2 weeks for nurse visit for blood pressure check and lab draw for monitoring of kidney function and electrolytes. - Olmesartan Medoxomil-HCTZ 20-12.5 MG Oral Tablet; Take 1 Tablet by mouth in the morning. Dispense: 30 Tablet; Refill: 5 - COMPREHENSIVE METABOLIC PANEL; Future 3. Hypertriglyceridemia Continue fenofibrate. Lipid panel with next set of lab work. - LIPID PANEL WITH DIRECT LDL IF TG IS HIGH; Future 4. Possible alcohol use disorder on screening for alcoholism Patient reports daily use of mixed drinks. Unable to quantify the amount. Encouraged him to cut back as this is likely contributing to weight, anxiety, insomnia, blood pressure issues. 5. Wheezing - Ventolin HFA 108 (90 Base) MCG/ACT Inhalation Aerosol Solution; Inhale 2 Puffs by mouth every 4 hours as needed for Wheezing. Dispense: 6.7 g; Refill: 3 Wrap-Up Follow up in 3 months. History of Present Illness The patient is a 33-year-old male with past medical history of hypertriglyceridemia, hypertension, obesity, bipolar disorder, alcohol use disorder, anxiety who presents for follow up. Patient presents for follow up multiple issues. He was started on levothyroxine 25 mcg daily in May 28, 2023. Most recent TSH is at goal. He was also started on fenofibrate at that time given significantly elevated triglycerides. He was due for repeat. His blood pressure in office today is elevated at 150 6/94. His significant other at home as a nurse who has noted blood pressures in the 170s over 110s at times. Does note some intermittent palpitations. He was never been on blood pressure medications. He was take BuSpar as needed for anxiety symptoms. There was some consideration at last appointment of starting Lamictal for mood stabilization for bipolar disorder which would limit the side effect of weight gain. Physical Exam Vitals: 12/16/23 1559 Temp: 37.1 C (98.7 F) Pulse: 94 Resp: 16 SpO2: 95% BP: 156/94 BMI: 36.49 Physical Exam Physical Exam Vitals reviewed. Constitutional: General: He is not in acute distress. Pulmonary: Effort: Pulmonary effort is normal. No respiratory distress. Breath sounds: Normal breath sounds. Neurological: General: No focal deficit present. Mental Status: He is alert. Psychiatric: Mood and Affect: Mood normal. Behavior: Behavior normal. This note has been completed in part utilizing [employer] Speech Voice Recognition Software. Due to technical limitations of the software, grammatical errors, random word insertions, prounoun errors, and incomplete sentences may occur. Any formal questions or concerns about the content, text, or information contained within the body of this dictation should be directly addressed to the provider for clarification. documented in this encounter Nursing Notes * Jade Haro MED ASSIST - 12/16/2023 4:03 PM EDT The patient has been properly identified by confirmation of name and date of . Chief Complaint Patient presents with Follow Up Pt here for mental health and meds check. Pt is having anxiety attacks and dizziness still. Pt has brought blood pressure readings with him for 11/29 3pm - 144/89 445 pm - 157/111 630pm 151/189 840pm 151/103 Pt needs new script for albuterol inhaler. documented in this encounter Plan of Treatment Upcoming Encounters Date Type Department Care Team (Late st Contact Info) Description 01/01/2024 9:30 AM EDT Nurse Only Ancillary Department, [place] [address] [place] [facility] [place] [address] Michael Nurse [address] [place] [facility] [place] [address] 03/17/2024 7:40 AM EST Office Visit [facility] [address] [place] [address] July, Kemar Arana MD [address] [place] [address] 05/10/2024 8:20 AM EST Office Visit [facility] [address] [place] [address] July, Kemar Arana MD [address] [place] [address] Scheduled Orders Name Type Priority Associated Diagnoses Orde r Schedule COMPREHENSIVE METABOLIC PANEL Lab Routine Hypertension goal BP (blood pressure) < 140/90 Expected: 12/16/2023 (Approximate), Expires: 12/15/2024 LIPID PANEL WITH DIRECT LDL IF TG IS HIGH Lab Routine Hypertriglyceridemia Expected: 12/16/2023, Expires: 12/15/2024 Health Maintenance Due Date Last Done Comments Pneumococcal Vaccine: Pediatrics (0 to 5 Years) and At-Risk Patients (6 to 64 Years) (1 of 2 - PCV) 05/26/1995 DTap/Tdap Vaccines (6 - Tdap) 12/03/2002 12/02/2002, 06/21/1994, 06/21/1994, Additional history exists HIV Screening 2004 Albumin/Creatinine Ratio 05/26/2007 Hepatitis C Screening 05/26/2007 COVID-19 Vaccine ( - season) 2023 Influenza Vaccine (FLU shot) (#1) 2023 GFR 05/08/2024 05/09/2023 TSH 12/12/2024 12/13/2023, 03/2023, 06/25/2005 Hepatitis B Vaccine Completed 05/23/1994, 05/23/1994, 12/29/1993, Additional history exists HPV (Gardasil) Vaccine Aged Out No lo nger eligible based on patient's age to complete this topic MENINGOCOCCAL (MENACTRA/MENVEO) Aged Out No longer eligible based on patient's age to complete this topic documented as of this encounter Medical Devices Not on filedocumented as of this encounter Visit Diagnoses Diagnosis Anxiety- Primary Anxiety state, unspecified Hypertension goal BP (blood pressure) < 140/90 Unspecified essential hypertension Hypertriglyceridemia Pure hyperglyceridemia Possible alcohol use disorder on screening for alcoholism Screening for alcoholism Wheezing documented in this encounter Care Teams Financial Compliance Officer Relationship Specialty Start Date End Date July, Kemar Arana MD [address] [place] [address] PCP - General Family Medicine 05/06/23 documented as of this encounter
--- NOTE | 2024-04-23 00:01 | XRay Report ---
Exam(s): XR CXR 1 VIEW EXAM: XR Chest, 1 View CLINICAL HISTORY: Reason for exam: Sepsis. TECHNIQUE: Frontal view of the chest. COMPARISON: 09/15/16 FINDINGS: Lungs: Left perihilar consolidation concerning for pneumonia. Additional bilateral hazy opacities may represent additional regions of pneumonia. Pleural space: No pleural effusion or pneumothorax. Heart: No cardiomegaly or pulmonary vascular congestion. Bones/joints: No acute fracture. No dislocation. IMPRESSION: 1. Left perihilar consolidation concerning for pneumonia. 2. Additional bilateral hazy opacities may represent additional regions of pneumonia. Electronically signed by: Grace Lee M.D. 04/23/24 00:00 AM
[2024-04-23 00:07] LABS: Basophils # (auto) 0.07 K/uL (0.00-0.20); Basophils % (auto) 0.4 %; Eosinophils # (auto) 0.06 K/uL (0.00-0.50); Eosinophils % (auto) 0.3 %; Hematocrit (blood only) 39.9 % (42.0-52.0); Hemoglobin 14.5 g/dl (14.0-18.0); Immature Granulocytes # (auto) 0.48 K/uL (0.01-0.20); Immature Granulocytes % (auto) 2.6 %; Lymphocytes # (auto) 1.06 K/uL (1.20-3.40); Lymphocytes % (auto) 5.7 %; Mean Corpuscular Hemoglobin 30.9 pg (25.0-34.0); Mean Corpuscular Hgb Conc 36.3 g/dL (32.0-36.0); Mean Corpuscular Volume 84.9 fL (80.0-100.0); Mean Platelet Volume 9.2 fL (9.4-12.4); Monocytes # (auto) 1.59 K/uL (0.11-0.59); Monocytes % (auto) 8.5 %; Neutrophils # (auto) 15.43 K/uL (1.40-6.50); Neutrophils % (auto) 82.5 %; Platelet Count 463 K/uL (130-400); RDW Coefficient of Variation 12.2 % (11.5-14.5); RDW Standard Deviation 37.6 fL (36.4-46.3); White Blood Count 18.69 K/ul (4.8-10.8)
[2024-04-23 00:15] LABS: Albumin Level 3.8 gm/dl (3.4-5.0); BUN Creatinine Ratio 31.1 (10-20); Bilirubin Direct 0.4 mg/dl (0-0.2); Calcium 8.5 mg/dl (8.6-10.3); Creatinine Clr Calc Pharmacy 101.6 ml/min; Magnesium 2.9 mg/dl (1.7-2.4); Total Protein 7.9 gm/dl (6.0-8.3)
[2024-04-23 00:21] LABS: Troponin I High Sensitivity 14.3 pg/ml (0-20)
[2024-04-23 00:33] LABS: Adenovirus PCR Not Detected (NotDetected); Bordetella parapertussis PCR Not Detected (NotDetected); Bordetella pertussis PCR Not Detected (NotDetected); Chlamydia pneumoniae PCR Not Detected (NotDetected); Coronavirus 229E PCR Not Detected (NotDetected); Coronavirus CoV-2 (COVID19)PCR Not Detected (NotDetected); Coronavirus HKU1 PCR Not Detected (NotDetected); Coronavirus NL63 PCR Not Detected (NotDetected); Coronavirus OC43PCR Not Detected (NotDetected); Human Metapneumovirus PCR Not Detected (NotDetected); Influenza A (H3) PCR DETECTED (NotDetected); Influenza B PCR Not Detected (NotDetected); Mycoplasma pneumoniae PCR Not Detected (NotDetected); Parainfluenza Virus 1 PCR Not Detected (NotDetected); Parainfluenza Virus 2 PCR Not Detected (NotDetected); Parainfluenza Virus 3 PCR Not Detected (NotDetected); Parainfluenza Virus 4 PCR Not Detected (NotDetected); Respiratory Syncytial VirusPCR Not Detected (NotDetected); Rhinovirus/Enterovirus PCR Not Detected (NotDetected)
[2024-04-23] MEDS: OPTIRAY 320 125ml IV ONE (00:49)
[2024-04-23] MEDS: PIPERACILLIN/TAZOBACTAM 4.5 GM/100 ML BAG IV ONE (00:55)
[2024-04-23] MEDS: POTASSIUM CHLORIDE CRTAB 20 MEQ TABCR PO STA (00:55)
[2024-04-23] MEDS: SODIUM CHLORIDE 0.9% 1,000 ML IV SCH ×2 (00:55→05:39)
--- NOTE | 2024-04-23 01:41 | CT Scan Report ---
EXAM: CT head/brain wo con CLINICAL HISTORY: WADE TECHNIQUE: Multiple axial images are obtained from the skull base to the vertex without contrast. CT scan was performed according to ALARA (as low as reasonably achievable). COMPARISON: none FINDINGS: The brain shows normal morphology, attenuation, and volume for age. No evidence of space occupying lesion, hemorrhage, edema, mass effect, midline shift, extra axial collection, or hydrocephalus is noted. Ventricles, sulci, and basal cisterns are symmetric and normal in size and configuration. The jean-white matter differentiation is preserved. Visualized mastoid air cells are well aerated. Bilateral ethmoidal and sphenoidal sinusitis. Orbital contents are within normal limits. Bony structures are intact. IMPRESSION: 1. No evidence of acute intracranial abnormality is demonstrated Electronically signed by Rodrick Ramirez 04-23-2024 01:41 AM
--- NOTE | 2024-04-23 01:58 | CT Scan Report ---
EXAM: CT angio chest PE protocol CLINICAL HISTORY: PE TECHNIQUE: Contiguous axial images were obtained from the neck base through the upper abdomen following intravenous administration of iodinated contrast material. Angiographic images were processed, 3D MIP images were acquired for interpretation. If IV contrast material had not been administered, the likelihood of detecting abnormalities relevant to the patient's condition would have been substantially decreased. Coronal and sagittal 3-D MIPs were likewise performed and indicated to increase the sensitivity of detectin diffuse clinically relevant pathology. CT scan was performed according to ALARA (as low as reasonable achievable). COMPARISON: None. FINDINGS: Multiple patchy consolidations are noted involving both lungs predominantly on left side Multiple tiny centrilobular nodular infiltrates are noted in both lungs- suggestive of endobronchial spread of disease. Enlarged mediastinal and right hilar nodes also seen- reactive. Adequate contrast bolus without evidence of pulmonary embolism. The central airways are patent. No pleural effusion. The heart, aorta, and pulmonary arteries are of normal size and configuration. There are no appreciable coronary artery and aortic atherosclerotic calcifications. No pericardial effusion is identified. The thyroid is unremarkable. No axillary lymphadenopathy is noted. No suspicious lytic or sclerotic osseous lesions are identified. IMPRESSION: 1. No evidence of pulmonary embolism. 2. Multiple patchy consolidations are noted involving both lungs predominantly on left side 3. Multiple tiny centrilobular nodular infiltrates are noted in both lungs-suggestive of endobronchial spread of disease. Electronically signed by Rodrick Ramirez 04-23-2024 01:57 AM
--- NOTE | 2024-04-23 02:34 | History & Physical Report ---
Date of Service April 23, 2024 Assessment & Plan (1) Pneumonia: Plan: 33-year-old male with past medical history significant for hypertension, obesity, hypertriglyceridemia, history of bipolar disorder, anxiety presents with ongoing shortness of breath and cough for last 2 weeks. He is coughing a lot. Has some chest pain yesterday attributes to coughing. Currently no chest pain. He has abdominal discomfort. Body aches and feeling very weak. Feeling short of breath. Has headache. Some runny nose. Has sore throat. Poor appetite. Had few episodes of diarrhea. Micturating okay. States quit smoking beginning of the year and also quit drinking alcohol beginning of the year. Multifocal pneumonia Ongoing symptoms for last 2 weeks CTA chest shows multifocal pneumonia Received Zosyn in the ER Will continue Zosyn and Doxy Close monitor Influenza A Starting on Tamiflu Droplet precaution Supportive care Hyponatremia Sodium 126 Slow correction Received fluids in the ER We will continue normal saline 50 mL/h BMP every 6 hours Nephrology consult in a.m. Hypokalemia Replaced Follow labs Hypertension Will hold his olmesartan/hydrochlorothiazide for now We will monitor Subclinical hypothyroidism On Synthyroid Will follow thyroid profile Hypertriglyceridemia And Tricor Bipolar disorder Anxiety Uses buspirone as needed Mild transaminitis Follow repeat labs Hypocalcemia will follow vitamin d levels start on calcium supplements DVT prophylaxis Lovenox Disposition Telemetry Full code History of Present Illness Chief Complaint: Shortness of breath and weakness Primary Care Provider: Kemar Flowers MD 33-year-old male with past medical history significant for hypertension, obesity, hypertriglyceridemia, history of bipolar disorder, anxiety presents with ongoing shortness of breath and cough for last 2 weeks. He is coughing a lot. Has some chest pain yesterday attributes to coughing. Currently no chest pain. He has abdominal discomfort. Body aches and feeling very weak. Feeling short of breath. Has headache. Some runny nose. Has sore throat. Poor appetite. Had few episodes of diarrhea. Micturating okay. States quit smoking beginning of the year and also quit drinking alcohol beginning of the year. Past medical history. As mentioned above Past surgical history. No surgeries on file Social history. Smoked 1 pack a day for 10 years. Quit in March 2024. Heavy alcohol use but quit in September 2024. Denies any drug use Family history. Maternal grandmother had allergies. Father has eczema. Allergies Allergy/AdvReac Type Severity Reaction Status Date / Time ibuprofen Allergy Mild HIVES/SOB Verified 10/07/21 00:25 bee venom protein (honey bee) Allergy Unknown ANAPHYLAXIS Unverified 10/07/21 00:25 hornet venom Allergy Unknown ANAPHYLAXIS Unverified 10/07/21 00:25 Home Medications Medication Instructions Recorded Confirmed Type fenofibrate nanocrystallized 48 mg 48 mg PO DAILY 04/23/24 04/23/24 History tablet (Tricor) levothyroxine 25 mcg tablet 25 mcg PO DAILY 04/23/24 04/23/24 History olmesartan 20 1 tab PO DAILY 04/23/24 04/23/24 History mg-hydrochlorothiazide 12.5 mg tablet Past Med/Surg History Problem List (Updated 12/15/23 @ 00:07 by Makayla Monterroso) Bipolar disorder Asthma (Chronic) Bronchitis (Chronic) Pneumonia (Chronic) Anxiety Depression Medical History Asthma Social History Smoking Status: Former smoker Tobacco Type: Cigarettes, E-cigarettes / Vaping and Smokeless Tobacco (Dip or Chew) Preferred Language: [place] Communication Ability: Effective Visual Impairment: Partially Limited Social Work Manager Required: No Beliefs That Will Affect Care: None Feels Safe at Home: Yes Gender Identity: Male Assistive Devices: Contacts and Glasses Review of Systems Review of Systems: All systems reviewed & are unremarkable except as noted in HPI & below Physical Exam Physical Exam: General- Not in acute distress. Head- atraumatic Eyes- PERRL. ENT- oropharynx clear Neck- supple, no JVD. Lungs- clear to auscultation no wheezing or crackles Heart- regular rhythm; tachycardia, no murmur, no gallop. Abdomen- normal bowel sounds, soft, tenderness in periumbilical region Extremities- no pretibial edema, no erythema seen Neuro- alert, oriented PERRL, no facial palsy; no dysarthria; moves extremities Results & Data Results & Data Vital Signs (Past 12 Hours) Vital Signs Temp Pulse Resp BP Pulse Ox O2 Del Method 04/23/24 01:34 99 H 20 110/72 95 04/23/24 00:30 103 H 20 102/70 92 Room Air 04/23/24 00:16 105 H 24 94/52 L 95 Room Air 02/14/25 00:07 Room Air 04/22/24 23:48 113 H 04/22/24 23:47 110 H 25 H 103/64 95 Room Air 04/22/24 23:37 99 Room Air 04/22/24 22:57 36.6 C 127 H 20 114/69 94 Room Air Diagnostic Findings Laboratory Results WBC 18.69 K/ul (4.8-10.8) H 04/22/24 23:34 RBC 4.70 M/uL (4.70-6.10) 04/22/24 23:34 Hgb 14.5 g/dl (14.0-18.0) 04/22/24 23:34 Hct 39.9 % (42.0-52.0) L 04/22/24 23:34 MCV 84.9 fL (80.0-100.0) 04/22/24 23:34 MCH 30.9 pg (25.0-34.0) 04/22/24 23:34 MCHC 36.3 g/dL (32.0-36.0) H 04/22/24 23:34 RDW Std Deviation 37.6 fL (36.4-46.3) 04/22/24 23:34 RDW Coeff of Rosalie 12.2 % (11.5-14.5) 04/22/24 23:34 Plt Count 463 K/uL (130-400) H 04/22/24 23:34 MPV 9.2 fL (9.4-12.4) L 04/22/24 23:34 Immature Gran % (Auto) 2.6 % 04/22/24 23:34 Neut % (Auto) 82.5 % 04/22/24 23:34 Lymph % (Auto) 5.7 % 04/22/24 23:34 [place] % (Auto) 8.5 % 04/22/24 23:34 Eos % (Auto) 0.3 % 04/22/24 23:34 Baso % (Auto) 0.4 % 04/22/24 23:34 Neut # (Auto) 15.43 K/uL (1.40-6.50) H 04/22/24 23:34 Lymph # (Auto) 1.06 K/uL (1.20-3.40) L 04/22/24 23:34 [place] # (Auto) 1.59 K/uL (0.11-0.59) H 04/22/24 23:34 Eos # (Auto) 0.06 K/uL (0.00-0.50) 04/22/24 23:34 Baso # (Auto) 0.07 K/uL (0.00-0.20) 04/22/24 23:34 Immature Gran # (Auto) 0.48 K/uL (0.01-0.20) H 04/22/24 23:34 Sodium 126 mmol/L (136-145) L 04/22/24 23:34 Potassium 3.0 mmol/L (3.5-5.1) L 04/22/24 23:34 Chloride 92 mmol/L (98-107) L 04/22/24 23:34 Carbon Dioxide 21 mmol/L (21-32) 04/22/24 23:34 Anion Gap 13 (3-11) H 04/22/24 23:34 BUN 38 mg/dl (6-23) H 04/22/24 23:34 Creatinine 1.22 mg/dl (0.6-1.4) 04/22/24 23:34 Est Cr Clr Drug Dosing 101.6 ml/min 04/22/24 23:34 eGFR 79.78 04/22/24 23:34 BUN/Creatinine Ratio 31.1 (10-20) H 04/22/24 23:34 Glucose 125 mg/dl (70-99(Fasting)) H 04/22/24 23:34 Osmolality 274 mOsm/kg (280-300) L 04/22/24 23:34 Lactate 1.3 mmol/L (0.4-2.0) 04/22/24 23:34 Calcium 8.5 mg/dl (8.6-10.3) L 04/22/24 23:34 Magnesium 2.9 mg/dl (1.7-2.4) H 04/22/24 23:34 Total Bilirubin 1.0 mg/dl (0.2-1.0) 04/22/24 23:34 Direct Bilirubin 0.4 mg/dl (0-0.2) H 04/22/24 23:34 AST 74 U/L (13-39) H 04/22/24 23:34 ALT 79 U/L (7-52) H 04/22/24 23:34 Alkaline Phosphatase 85 U/L (34-104) 04/22/24 23:34 Troponin I High Sens 14.3 pg/ml (0-20) 04/22/24 23:34 Total Protein 7.9 gm/dl (6.0-8.3) 04/22/24 23:34 Albumin 3.8 gm/dl (3.4-5.0) 04/22/24 23:34 Procalcitonin 4.72 ng/ml (0-0.5) H 04/22/24 23:34 Adenovirus (PCR) Not Detected (NotDetected) 04/22/24 22:50 B. pertussis DNA (PCR) Not Detected (NotDetected) 04/22/24 22:50 B.parapertussis DNA PCR Not Detected (NotDetected) 04/22/24 22:50 C. pneumoniae DNA (PCR) Not Detected (NotDetected) 04/22/24 22:50 Coronavirus OC43 (PCR) Not Detected (NotDetected) 04/22/24 22:50 Coronavirus HKU1 (PCR) Not Detected (NotDetected) 04/22/24 22:50 Coronavirus 229E (PCR) Not Detected (NotDetected) 04/22/24 22:50 SARS-CoV-2 (PCR) Not Detected (NotDetected) 04/22/24 22:50 Coronavirus NL63 (PCR) Not Detected (NotDetected) 04/22/24 22:50 Human Metapneumovir PCR Not Detected (NotDetected) 04/22/24 22:50 Influenza A (H3) PCR DETECTED (NotDetected) A 04/22/24 22:50 Influenza Type B (PCR) Not Detected (NotDetected) 04/22/24 22:50 M. pneumoniae (PCR) Not Detected (NotDetected) 04/22/24 22:50 Parainfluenza 1 (PCR) Not Detected (NotDetected) 04/22/24 22:50 Parainfluenza 2 (PCR) Not Detected (NotDetected) 04/22/24 22:50 Parainfluenza 3 (PCR) Not Detected (NotDetected) 04/22/24 22:50 Parainfluenza 4 (PCR) Not Detected (NotDetected) 04/22/24 22:50 RSV (PCR) Not Detected (NotDetected) 04/22/24 22:50 Entero/Rhino (PCR) Not Detected (NotDetected) 04/22/24 22:50 Impressions Chest CTA 04/22/24 23:22 EXAM: CT angio chest PE protocol CLINICAL HISTORY: PE TECHNIQUE: Contiguous axial images were obtained from the neck base through the upper abdomen following intravenous administration of iodinated contrast material. Angiographic images were processed, 3D MIP images were acquired for interpretation. If IV contrast material had not been administered, the likelihood of detecting abnormalities relevant to the patient's condition would have been substantially decreased. Coronal and sagittal 3-D MIPs were likewise performed and indicated to increase the sensitivity of detectin diffuse clinically relevant pathology. CT scan was performed according to ALARA (as low as reasonable achievable). COMPARISON: None. FINDINGS: Multiple patchy consolidations are noted involving both lungs predominantly on left side Multiple tiny centrilobular nodular infiltrates are noted in both lungs- suggestive of endobronchial spread of disease. Enlarged mediastinal and right hilar nodes also seen- reactive. Adequate contrast bolus without evidence of pulmonary embolism. The central airways are patent. No pleural effusion. The heart, aorta, and pulmonary arteries are of normal size and configuration. There are no appreciable coronary artery and aortic atherosclerotic calcifications. No pericardial effusion is identified. The thyroid is unremarkable. No axillary lymphadenopathy is noted. No suspicious lytic or sclerotic osseous lesions are identified. IMPRESSION: 1. No evidence of pulmonary embolism. 2. Multiple patchy consolidations are noted involving both lungs predominantly on left side 3. Multiple tiny centrilobular nodular infiltrates are noted in both lungs-suggestive of endobronchial spread of disease. Electronically signed by Rodrick Ramirez 04-23-2024 01:57 AM Chest X-Ray 04/22/24 23:22 Exam(s): XR CXR 1 VIEW EXAM: XR Chest, 1 View CLINICAL HISTORY: Reason for exam: Sepsis. TECHNIQUE: Frontal view of the chest. COMPARISON: 09/15/16 FINDINGS: Lungs: Left perihilar consolidation concerning for pneumonia. Additional bilateral hazy opacities may represent additional regions of pneumonia. Pleural space: No pleural effusion or pneumothorax. Heart: No cardiomegaly or pulmonary vascular congestion. Bones/joints: No acute fracture. No dislocation. IMPRESSION: 1. Left perihilar consolidation concerning for pneumonia. 2. Additional bilateral hazy opacities may represent additional regions of pneumonia. Electronically signed by: Grace Lee M.D. 04/23/24 00:[address] 04/22/24 23:22 EXAM: CT head/brain wo con CLINICAL HISTORY: WADE TECHNIQUE: Multiple axial images are obtained from the skull base to the vertex without contrast. CT scan was performed according to ALARA (as low as reasonably achievable). COMPARISON: none FINDINGS: The brain shows normal morphology, attenuation, and volume for age. No evidence of space occupying lesion, hemorrhage, edema, mass effect, midline shift, extra axial collection, or hydrocephalus is noted. Ventricles, sulci, and basal cisterns are symmetric and normal in size and configuration. The jean-white matter differentiation is preserved. Visualized mastoid air cells are well aerated. Bilateral ethmoidal and sphenoidal sinusitis. Orbital contents are within normal limits. Bony structures are intact. IMPRESSION: 1. No evidence of acute intracranial abnormality is demonstrated Electronically signed by Rodrick Ramirez 04-23-2024 01:41 AM ECG Additional Comments: ECG. Sinus tachycardia 112. No acute ST changes seen. Code Status & VTE Plan VTE Prophylaxis Plan VTE Prophylaxis will be ordered: Yes
[2024-04-23] MEDS: OSELTAMIVIR PHOSPHATE 75 MG CAP PO STA (03:15)
[2024-04-23] MEDS: DOXYCYCLINE HYCLATE 100 MG in DEXTROSE 5% MINI-B 100 ML IV STA (03:16)
[2024-04-23] MEDS ORDERED: NITROGLYCERIN SL 0.4 MG/TAB TAB SL PRN (03:41)
[2024-04-23] MEDS: PIPERACILLIN/TAZOBACTAM 4.5 GM/100 ML BAG IV SCH (05:39)
[2024-04-23 06:32] LABS: Hematocrit (blood only) 34.3 % (42.0-52.0); Hemoglobin 12.3 g/dl (14.0-18.0); Mean Corpuscular Hemoglobin 30.9 pg (25.0-34.0); Mean Corpuscular Hgb Conc 35.9 g/dL (32.0-36.0); Mean Corpuscular Volume 86.2 fL (80.0-100.0); Mean Platelet Volume 9.1 fL (9.4-12.4); Platelet Count 390 K/uL (130-400); RDW Coefficient of Variation 12.2 % (11.5-14.5); Red Blood Count 3.98 M/uL (4.70-6.10); White Blood Count 13.96 K/ul (4.8-10.8)
[2024-04-23 06:51] LABS: BUN Creatinine Ratio 33.8 (10-20); Calcium 7.5 mg/dl (8.6-10.3); Creatinine Clr Calc Pharmacy 160.9 ml/min; Magnesium 2.8 mg/dl (1.7-2.4); Potassium 3.5 mmol/L (3.5-5.1)
[2024-04-23] MEDS: LEVOTHYROXINE SODIUM 25 MCG TABLET PO SCH (07:12)
[2024-04-23 07:44] LABS: Basophils # (auto) 0.04 K/uL (0.00-0.20); Basophils % (auto) 0.3 %; Dohle Bodies 1+; Eosinophils # (auto) 0.05 K/uL (0.00-0.50); Eosinophils % (auto) 0.4 %; Immature Granulocytes % (auto) 1.4 %; Lymphocytes # (auto) 0.64 K/uL (1.20-3.40); Lymphocytes % (auto) 4.6 %; Monocytes # (auto) 0.45 K/uL (0.11-0.59); Monocytes % (auto) 3.2 %; Neutrophils # (auto) 12.58 K/uL (1.40-6.50); Neutrophils % (auto) 90.1 %
[2024-04-23 07:52] LABS: Thyroid Stimulating Hormone 1.274 uIu/ml (0.300-4.500)
[2024-04-23] MEDS: CALCIUM 600MG + VIT D 400 IU TAB PO SCH (09:01)
[2024-04-23] MEDS: ENOXAPARIN INJ 40 MG/0.4 ML SYR SQ SCH (09:01)
[2024-04-23] MEDS: FENOFIBRATE NANOCRYSTALLIZED 48 MG TABLET PO SCH (09:02)
[2024-04-23] MEDS: OSELTAMIVIR PHOSPHATE 75 MG CAP PO SCH (09:03)
--- NOTE | 2024-04-23 09:05 | Nephrology Consultation ---
Date of Consultation April 23, 2024 Assessment & Plan (1) Hyponatremia: euvolemic hyponatremia in setting of low solute diet w/ acute illness. Target sodium for this evening is to maintain current level and to have serum sodium tomorrow AM no more than 134. volume status accepetable now after aggressive repletion and he's eating well. -cont NS at 50 mL hourly for now -f/u pending bmp at noon >> sNa 131, K 3.6 -maintain eukalemia >> based on noon labs, gave K 40 mEq po x 1 -f/u pending urine studies, though interpretation will be changed by therapies already provided >> urine osms c/w mild polydipsia//low solute diet -continue to hold thiazide diuretic >> use amlodipine if BP control needed >>>>> if 1800 bmp has sNa more than 133 start D5W at 100 mL hourly adn recheck bmp in 6hr; if 1800 BMP has sNa less than 129, stop NS and give lasix 10 mg IV x 1 and recheck BMP in 6hrs; if 1800 BMP has sNa 130-133, stop NS and repeat bmp in AM Clinical impression, update on meds/lab trends, plan for 1800 lab result mgt reviewed w/ Dr Mcfarland by [employer]Text; we are in agreement. History of Present Illness Reason for Consultation: hyponatremia Requesting Physician: Dr Mcfarland Attending Physician: Sung Mcfarland MD History of Present Illness 33-year-old male whom I am asked to evaluate for hyponatremia was admitted this morning with influenza A and multifocal pneumonia and presenting sodium 126 at 2330 on April 22. Past medical history includes hypertension, bipolar disorder, obesity, hypertriglyceridemia; also with history of heavy alcohol use through September 2024 and recently stopped tobacco abuse last month on raymundo with 10-year pack history. He received 3 L normal saline in the emergency department. Started also on Zosyn and doxycycline as well as steroids and nebs. Currently on sodium at 50 mL hourly. Serum osmolality 274. Urine studies pending. Sodium level this morning at 0600 is 130 w/ potassium 3.5. tells me he feels much improved since arrival >> hungry, no sob; still occasoinal cough; no edema; no n/v, no fall. no new/worrisome voiding sx; no f/c. tells me he had minimal po intake for several days prior to admission, "I had 1/2 container chicken broth in 2 wks before I came to hospital" Allergies Allergy/AdvReac Type Severity Reaction Status Date / Time ibuprofen Allergy Mild HIVES/SOB Verified 10/07/21 00:25 bee venom protein (honey bee) Allergy Unknown ANAPHYLAXIS Unverified 10/07/21 00:25 hornet venom Allergy Unknown ANAPHYLAXIS Unverified 10/07/21 00:25 Home Medications Medication Instructions Recorded Confirmed Type fenofibrate nanocrystallized 48 mg 48 mg PO DAILY 04/23/24 04/23/24 History tablet (Tricor) levothyroxine 25 mcg tablet 25 mcg PO DAILY 04/23/24 04/23/24 History olmesartan 20 1 tab PO DAILY 04/23/24 04/23/24 History mg-hydrochlorothiazide 12.5 mg tablet Patient History Medical History Asthma Social History Smoking Status: Former smoker Tobacco Type: Cigarettes, E-cigarettes / Vaping and Smokeless Tobacco (Dip or Chew) Second Hand Exposure: No; Do You Dip or Chew Tobacco: No; Tobacco Cessation Education Requested by Patient: No Hx Alcohol Use: Yes Alcohol type: beer Hx Substance Use: No Preferred Language: Syriac Communication Ability: Effective Visual Impairment: Partially Limited Termite Treater Helper Required: No Beliefs That Will Affect Care: None Current Living Situation: Alone Other Information That Helps Us Care for You: No Feels Safe at Home: Yes Safety Concerns: Feels Safe At This Time Gender Identity: Male Assistive Devices: None Review of Systems 2 Review of Systems: All systems reviewed & are unremarkable except as noted in HPI & below Physical Exam 2 Constitutional: well developed, well nourished, average body habitus and cooperative (sitting on side of bed eating meal on RA); no acute distress Eyes: EOM intact bilaterally ENMT: Ears: no external ear abnormality Nose: no external nose abnormality Mouth: + dry oral mucous membranes Neck: no nuchal rigidity Respiratory: normal respiratory effort and + cough (w/ deep inspiration); not tachypneic Auscultation: + diminished lung sounds Cardiovascular: RRR, no murmur, no edema Gastrointestinal (Abdomen): Inspection/Auscultation: normal bowel sounds P ercussion/Palpation: abdomen soft; abdomen nontender Musculoskeletal: Extremities: strength 5/5 throughout Skin: no rashes, warm and dry Neurologic: eid, fluent speech, no tremor Psychiatric: Orientation: alert and oriented x 3 Speech: normal rate/rhythm/volume of speech Results & Data Vital Signs (Past 12 Hours) Vital Signs Temp Pulse Pulse Resp BP Pulse Ox O2 Del Method 04/23/24 07:53 75 04/23/24 07:00 74 18 04/23/24 07:00 74 16 111/74 93 04/23/24 06:30 77 20 98 Room Air 04/23/24 05:00 77 23 142/87 H 04/23/24 04:45 21 169/99 H 04/23/24 04:30 20 134/95 04/23/24 04:00 69 15 127/81 04/23/24 03:36 78 04/23/24 03:00 83 20 104/74 95 Room Air 04/23/24 02:45 83 19 117/52 L 04/23/24 02:16 90 18 90/59 L 04/23/24 01:45 87 18 100/72 04/23/24 01:34 99 H 20 110/72 95 04/23/24 00:30 103 H 20 102/70 92 Room Air 04/23/24 00:16 105 H 24 94/52 L 95 Room Air 04/23/24 00:07 Room Air 04/22/24 23:48 113 H 04/22/24 23:47 110 H 25 H 103/64 95 Room Air 04/22/24 23:37 99 Room Air 04/22/24 22:57 36.6 C 127 H 20 114/69 94 Room Air Laboratory Results 04/23/24 06:03 04/23/24 06:03 urine sg 1004 AST 74, ALT 79
[2024-04-23 10:52] LABS: Appearance Urine Clear (Clear); Bacteria Urine Automated None Seen (None Seen); Bilirubin Urine Negative (Negative); Blood Urine Trace (Negative); Cast Urine Automated 0-2 /lpf (0-2); Color Urine Yellow; Epithelial Cell Urine Auto 0-2 /hpf (0-2); Glucose Urine UA 1+ (Negative); Ketones Urine Negative (Negative); Leukocyte Esterase Urine Negative (Negative); Nitrite Urine Negative (Negative); Protein Urine Negative (Negative); RBC Urine Automated 0-2 /hpf (0-2); Specific Gravity Urine 1.013 (1.000-1.030); Urobilinogen Urine Negative (Negative); WBC Urine Automated 0-5 /hpf (0-5)
[2024-04-23] MEDS: guaiFENesin 600 MG TABCR PO SCH (11:43)
[2024-04-23] MEDS: LORATADINE 10 MG TAB PO ONE (11:43)
--- NOTE | 2024-04-23 12:06 | Hospitalist Progress Note ---
Date of Service April 23, 2024 Assessment & Plan (1) Pneumonia: Plan: 33-year-old male with past medical history significant for hypertension, obesity, hypertriglyceridemia, history of bipolar disorder, anxiety presents with ongoing shortness of breath and cough for last 2 weeks found to have Flu A and multifocal PNA. Sepsis 2/2 Multifocal pneumonia Tachycardic, hypotensive on arrival - WBC 13K, procal 4.72 Ongoing symptoms for last 2 weeks CTA chest shows multifocal pneumonia Continue Zosyn and doxy Nebs PRN, added mucinex and antihistamine Encouraged fluids Influenza A Continue tamiflu Droplet precaution Supportive care Hyponatremia Sodium 126 Slow correction Na 134 this evening - per nephro, transition fluids to D5W and repeat BMP in 6 hrs Nephrology following Hypokalemia Replaced Follow labs Hypertension Will hold his olmesartan/hydrochlorothiazide for now Subclinical hypothyroidism On Synthyroid Will follow thyroid profile Hypertriglyceridemia Continue Tricor Bipolar disorder Anxiety Uses buspirone as needed Mild transaminitis Likely elevated 2/2 acute infection Downtrending Hypocalcemia Vitamin d levels deficient at 12.8 start on calcium, Vit D supplementation DVT prophylaxis Lovenox Disposition Telemetry Full code Care coordinated with Dr. Mcfarland. Will not bill for encouter as patient admitted after midnight. Admission and Anticipated Discharge Date Admission Date: April 23, 2024 Subjective Seen and examined in ED. Feeling better today but still worn out and SOB. + Diffuse bodyaches. Less nasal congestion but still with sense of fullness in sinuses and R ear. No fever or chills. Appetite improving; ate the most at breakfast that he has in days. No lightheadedness, CP, N/V, abd pain, dysuria. Episode of diarrhea. Review of Systems Review of Systems: At least ten systems reviewed and negative except as noted in the HPI. Physical Exam Physical Exam: Gen: WD/WN, NAD, sitting up in bed, obese, A&Ox3 HEENT: Normocephalic, atraumatic, mucous membranes moist, purulent R tympanic membrane Lung: Scattered expiratory wheezing and rhonchi Heart: Regular rate, regular rhythm Abdomen: Soft, NT, ND +BS x 4 Extremities: no edema Skin: Warm, no rash Results & Data Results & Data Vital Signs (Past 12 Hours) Vital Signs Temp Pulse Pulse Resp BP BP Pulse Ox 04/23/24 11:44 36.8 C 88 18 115/83 95 02/14/25 07:53 75 04/23/24 07:00 74 18 04/23/24 07:00 74 16 111/74 93 04/23/24 06:30 77 20 98 04/23/24 05:00 77 23 142/87 H 04/23/24 04:45 21 169/99 H 04/23/24 04:30 20 134/95 04/23/24 04:00 69 15 127/81 04/23/24 03:36 78 04/23/24 03:00 83 20 104/74 95 04/23/24 02:45 83 19 117/52 L 04/23/24 02:16 90 18 90/59 L 04/23/24 01:45 87 18 100/72 04/23/24 01:34 99 H 20 110/72 95 04/23/24 00:30 103 H 20 102/70 92 04/23/24 00:16 105 H 24 94/52 L 95 04/23/24 00:07 O2 Del Method 04/23/24 11:44 Room Air 04/23/24 07:53 04/23/24 07:00 04/23/24 07:00 04/23/24 06:30 Room Air 04/23/24 05:00 04/23/24 04:45 04/23/24 04:30 04/23/24 04:00 04/23/24 03:36 04/23/24 03:00 Room Air 04/23/24 02:45 04/23/24 02:16 04/23/24 01:45 04/23/24 01:34 04/23/24 00:30 Room Air 04/23/24 00:16 Room Air 04/23/24 00:07 Room Air Laboratory Results Short CBC 04/22/24 04/23/24 Range/Units 23:34 06:03 WBC 18.69 H 13.96 H (4.8-10.8) K/ul Hgb 14.5 12.3 L (14.0-18.0) g/dl Hct 39.9 L 34.3 L (42.0-52.0) % Plt Count 463 H 390 (130-400) K/uL BMP 04/22/24 04/23/24 04/23/24 23:34 06:03 11:34 Sodium 126 L 130 L 131 L Potassium 3.0 L 3.5 3.6 Chloride 92 L 104 103 Carbon Dioxide 21 19 L 21 BUN 38 H 26 H 24 H Creatinine 1.22 0.77 D 0.74 Glucose 125 H 180 H 238 H Calcium 8.5 L 7.5 L 7.6 L 04/23/24 17:28 Sodium 134 L Potassium 3.8 Chloride 105 Carbon Dioxide 17 L BUN 27 H Creatinine 0.87 Glucose 169 H Calcium 8.0 L Liver Function 04/22/24 Range/Units 23:34 Total Bilirubin 1.0 (0.2-1.0) mg/dl Direct Bilirubin 0.4 H (0-0.2) mg/dl AST 74 H (13-39) U/L ALT 79 H (7-52) U/L Alkaline Phosphatase 85 (34-104) U/L Albumin 3.8 (3.4-5.0) gm/dl Urine 04/23/24 Range/Units 07:00 Urine Color Yellow Urine Appearance Clear (Clear) Urine pH 6.0 (4.5-7.5) Ur Specific Ledbetter 1.013 (1.000-1.030) Urine Protein Negative (Negative) Urine Glucose (UA) 1+ H (Negative) Diagnostic Findings Chest CTA 04/22/24 23:22 EXAM: CT angio chest PE protocol CLINICAL HISTORY: PE TECHNIQUE: Contiguous axial images were obtained from the neck base through the upper abdomen following intravenous administration of iodinated contrast material. Angiographic images were processed, 3D MIP images were acquired for interpretation. If IV contrast material had not been administered, the likelihood of detecting abnormalities relevant to the patient's condition would have been substantially decreased. Coronal and sagittal 3-D MIPs were likewise performed and indicated to increase the sensitivity of detectin diffuse clinically relevant pathology. CT scan was performed according to ALARA (as low as reasonable achievable). COMPARISON: None. FINDINGS: Multiple patchy consolidations are noted involving both lungs predominantly on left side Multiple tiny centrilobular nodular infiltrates are noted in both lungs- suggestive of endobronchial spread of disease. Enlarged mediastinal and right hilar nodes also seen- reactive. Adequate contrast bolus without evidence of pulmonary embolism. The central airways are patent. No pleural effusion. The heart, aorta, and pulmonary arteries are of normal size and configuration. There are no appreciable coronary artery and aortic atherosclerotic calcifications. No pericardial effusion is identified. The thyroid is unremarkable. No axillary lymphadenopathy is noted. No suspicious lytic or sclerotic osseous lesions are identified. IMPRESSION: 1. No evidence of pulmonary embolism. 2. Multiple patchy consolidations are noted involving both lungs predominantly on left side 3. Multiple tiny centrilobular nodular infiltrates are noted in both lungs-suggestive of endobronchial spread of disease. Electronically signed by Rodrick Ramirez 04-23-2024 01:57 AM Chest X-Ray 04/22/24 23:22 Exam(s): XR CXR 1 VIEW EXAM: XR Chest, 1 View CLINICAL HISTORY: Reason for exam: Sepsis. TECHNIQUE: Frontal view of the chest. COMPARISON: 09/15/16 FINDINGS: Lungs: Left perihilar consolidation concerning for pneumonia. Additional bilateral hazy opacities may represent additional regions of pneumonia. Pleural space: No pleural effusion or pneumothorax. Heart: No cardiomegaly or pulmonary vascular congestion. Bones/joints: No acute fracture. No dislocation. IMPRESSION: 1. Left perihilar consolidation concerning for pneumonia. 2. Additional bilateral hazy opacities may represent additional regions of pneumonia. Electronically signed by: Grace Lee M.D. 04/23/24 00:[address] 04/22/24 23:22 EXAM: CT head/brain wo con CLINICAL HISTORY: WADE TECHNIQUE: Multiple axial images are obtained from the skull base to the vertex without contrast. CT scan was performed according to ALARA (as low as reasonably achievable). COMPARISON: none FINDINGS: The brain shows normal morphology, attenuation, and volume for age. No evidence of space occupying lesion, hemorrhage, edema, mass effect, midline shift, extra axial collection, or hydrocephalus is noted. Ventricles, sulci, and basal cisterns are symmetric and normal in size and configuration. The jean-white matter differentiation is preserved. Visualized mastoid air cells are well aerated. Bilateral ethmoidal and sphenoidal sinusitis. Orbital contents are within normal limits. Bony structures are intact. IMPRESSION: 1. No evidence of acute intracranial abnormality is demonstrated Electronically signed by Rodrick Ramirez 04-23-2024 01:41 AM
[2024-04-23 12:32] LABS: BUN Creatinine Ratio 32.4 (10-20); Calcium 7.6 mg/dl (8.6-10.3); Creatinine Clr Calc Pharmacy 167.4 ml/min; Potassium 3.6 mmol/L (3.5-5.1)
--- NOTE | 2024-04-23 12:40 | Electrocardiogram Report ---
Test Reason : Blood Pressure : */* mmHG Vent. Rate : 112 BPM Atrial Rate : 112 BPM P-R Int : 146 ms QRS Dur : 86 ms QT Int : 334 ms P-R-T Axes : 32 27 71 degrees QTcB Int : 455 ms Sinus tachycardia Otherwise normal ECG When compared with ECG of 15-Sep-2016 14:12, Fusion complexes are no longer Present Vent. rate has increased by 38 bpm Confirmed by Homar Spence ([id number]) on 04/23/2024 12:40:27 PM Referred By: REFERRED SELF Confirmed By: Homar Spence
[2024-04-23] MEDS: DOXYCYCLINE HYCLATE 100 MG in DEXTROSE 5% MINI-B 100 ML IV SCH (13:20)
[2024-04-23] MEDS: POTASSIUM CHLORIDE CRTAB 20 MEQ TABCR PO ONE (17:50)
[2024-04-23 18:06] LABS: Creatinine Clr Calc Pharmacy 142.4 ml/min; Potassium 3.8 mmol/L (3.5-5.1)
[2024-04-23] MEDS: LEVALBUTEROL 1.25 MG/3 ML NEB NEB PRN (18:34)
[2024-04-23] MEDS: ADVANCED PROBIOTIC 625 MG CAPSULE PO SCH (19:32)
[2024-04-23] MEDS: DEXTROSE 5% 1,000 ML IV SCH (22:02)
[2024-04-23 23:31] LABS: BUN Creatinine Ratio 37.1 (10-20); Calcium 7.9 mg/dl (8.6-10.3); Potassium 3.7 mmol/L (3.5-5.1)
[2024-04-24 01:09] LABS: BUN Creatinine Ratio 32.9 (10-20); Calcium 8.2 mg/dl (8.6-10.3); Creatinine Clr Calc Pharmacy 169.7 ml/min; Potassium 3.4 mmol/L (3.5-5.1)
[2024-04-24] MEDS: CHOLECALCIFEROL 125 MCG (5,000 UNITS) TAB PO SCH (07:34)
[2024-04-24] MEDS: POTASSIUM CHLORIDE CRTAB 20 MEQ TABCR PO STA (07:36)
[2024-04-24] MEDS: CALCIUM CARBONATE 1,250 MG/5 ML UDC PO SCH (07:37)
[2024-04-24 08:14] LABS: Hematocrit (blood only) 35.5 % (42.0-52.0); Hemoglobin 12.5 g/dl (14.0-18.0); Mean Corpuscular Hgb Conc 35.2 g/dL (32.0-36.0); Mean Corpuscular Volume 88.1 fL (80.0-100.0); Mean Platelet Volume 9.4 fL (9.4-12.4); Platelet Count 490 K/uL (130-400); RDW Coefficient of Variation 12.6 % (11.5-14.5); RDW Standard Deviation 41.1 fL (36.4-46.3); Red Blood Count 4.03 M/uL (4.70-6.10); White Blood Count 17.26 K/ul (4.8-10.8)
[2024-04-24 08:41] LABS: Albumin Level 3.1 gm/dl (3.4-5.0); BUN Creatinine Ratio 31.7 (10-20); Bilirubin Direct 0.1 mg/dl (0-0.2); Bilirubin,Total 0.6 mg/dl (0.2-1.0); Calcium 7.9 mg/dl (8.6-10.3); Creatinine Clr Calc Pharmacy 215.7 ml/min; Magnesium 2.5 mg/dl (1.7-2.4); Phosphorus 2.3 mg/dl (2.5-4.9); Potassium 3.5 mmol/L (3.5-5.1); Total Protein 6.6 gm/dl (6.0-8.3)
[2024-04-24] MEDS: ERGOCALCIFEROL 1250 MCG (50,000 UNITS) CAP PO ONE (10:15)
--- NOTE | 2024-04-24 10:45 | Nephrology Progress Note ---
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 Admission sodium of 126. Na uptrending nicely to 134 today -Stop D5W -Patient can eat and drink up to 1.5 litres in 24hrs. -Monitor sodium daily Admission and Anticipated Discharge Date Admission Date: April 23, 2024 Subjective Patient admitted with pneumonia due to influenza. He is seen for hyponatremia. he feels better. No SOB. No vomiting or diarrhoea. Review of Systems 2 Review of Systems: All other systems were reviewed and negative except as noted in HPI Physical Exam 2 Physical Exam: General exam: Appears comfortable, no acute distress HEENT: Pupils are equal and reactive to light Neck: No JVD, neck is supple trachea is midline Respiratory system: Clear breath sounds bilaterally. Gastrointestinal: Abdomen is soft, non distended, non tender, bowel sounds are present CVS: Regular rate and rhythm. No murmurs, rubs or gallops Musculoskeletal: No joint or muscle tenderness Extremities: Non tender, no edema, peripheral pulses are present Neuro: Oriented, no tremors, no focal neurological deficits Skin: No rashes Results & Data Vital Signs (Past 12 Hours) Vital Signs Temp Pulse Pulse Resp BP Pulse Ox O2 Del Method 04/24/24 09:47 76 18 97 Room Air 04/24/24 08:33 67 04/24/24 07:30 Room Air 04/24/24 07:00 36.8 C 74 18 130/75 96 Room Air 04/24/24 03:26 36.9 C 66 16 127/80 95 Room Air 04/23/24 23:29 36.8 C 69 18 116/76 94 Room Air 04/23/24 23:20 69 18 96 Room Air Laboratory Results 04/24/24 07:10 04/24/24 07:10 WBC 17.26 H RBC 4.03 L MCV 88.1 MCH 31.0 MCHC 35.2 RDW Std Deviation 41.1 RDW Coeff of Rosalie 12.6 Plt Count 490 H MPV 9.4 Phosphorus 2.3 L Albumin 3.1 L
[2024-04-24] MEDS ORDERED: guaiFENesin/CODEINE 100MG/10MG 5ML UDC PO PRN (11:13)
--- NOTE | 2024-04-24 11:23 | Hospitalist Progress Note ---
Date of Service April 24, 2024 Assessment & Plan (1) Pneumonia: Plan: This is a 33-year-old male with past medical history significant for hypertension, obesity, hypertriglyceridemia, history of bipolar disorder, anxiety presents with ongoing shortness of breath and cough for last 2 weeks found to have Flu A and multifocal PNA. Sepsis 2/2 Multifocal pneumonia Tachycardic, hypotensive on arrival - WBC 13K, procal 4.72 Ongoing symptoms for last 2 weeks CTA chest shows multifocal pneumonia Continue Zosyn and doxy Nebs PRN, added Mucinex, daily antihistamine and Flonase Incentive spirometry and flutter valve Encouraged oral fluids R Ear pain Persistent fullness on R side of face, +TM purulent Continue broad spectrum abx, MRSA swab added PRN Sudafed, Flonase CT mastoid Pain control Influenza A Continue tamiflu Droplet precaution Supportive care Hyponatremia SIADH in setting of acute illness Sodium 126 -> 133 Ok to stop D5W, FR at 1.5L within 24 hr period Repeat BMP in AM Hypokalemia Replaced Follow labs Hypertension Will hold his olmesartan/hydrochlorothiazide for now Subclinical hypothyroidism Continue Synthyroid TSH WNL Hypertriglyceridemia Continue Tricor Bipolar disorder Anxiety Uses buspirone as needed Mild transaminitis Elevated 2/2 acute infection Downtrending Hypocalcemia Corrected calcium WNL - adding protein to diet with Boost Vitamin d levels deficient at 12.8 - starting 50,000 IU weekly x 8 weeks, recommend rechecking labs with PCP after 6 weeks DVT prophylaxis: Lovenox Disposition: Telemetry Code: FULL I spent a total of 50 minutes coordinating, documenting, and providing care for this patient excluding time spent in the performance of separately billed services or time spent by another provider/QHP. Admission and Anticipated Discharge Date Admission Date: April 23, 2024 Supervising Physician Co-Signing Physician Notes Pt seen and examined by me , care coordinated w/ J. Lazaro MEAD, pls refer to her note above for further detail. Pt is breathing comfortably on RA, continues to have mild rhonchi diffusely on lung exam. Reports persistent R ear pain, also R mastoid tenderness, reports pain w/ chewing. Pt currently on zosyn, doxy, and tamiflu. WBC today 17K. Will cont. abx, and antivirals. Will obtain CT to eval mastoid. Cont. to closely monitor. MD Bartolo I spent a total of 15 minutes coordinating, documenting, and providing care for this patient excluding time spend in the performance of separately billed services or time spent by another provider / QHP. Subjective Seen and examined in 238. Continues to feel short of breath with more frequent coughing. Describes ear pain and fullness in right side of neck exacerbated by coughing. Denies any hemoptysis. Tolerating diet without issue. No fever, chills, lightheadedness, chest pain, nausea, vomiting, abdominal pain. Having normal bowel movements. Review of Systems Review of Systems: At least ten systems reviewed and negative except as noted in the HPI. Physical Exam Physical Exam: Gen: WD/WN, NAD,laying in bed obese, A&Ox3 HEENT: Normocephalic, atraumatic, mucous membranes moist, purulent R tympanic membrane Lung: Scattered expiratory wheezing and rhonchi Heart: Regular rate, regular rhythm Abdomen: Soft, NT, ND +BS x 4 Extremities: no edema Skin: Warm, no rash Results & Data Results & Data Vital Signs (Past 12 Hours) Vital Signs Temp Pulse Pulse Resp BP Pulse Ox O2 Del Method 04/24/24 09:47 76 18 97 Room Air 04/24/24 08:33 67 04/24/24 07:30 Room Air 04/24/24 07:00 36.8 C 74 18 130/75 96 Room Air 04/24/24 03:26 36.9 C 66 16 127/80 95 Room Air 04/23/24 23:29 36.8 C 69 18 116/76 94 Room Air Laboratory Results Short CBC 04/24/24 Range/Units 07:10 WBC 17.26 H (4.8-10.8) K/ul Hgb 12.5 L (14.0-18.0) g/dl Hct 35.5 L (42.0-52.0) % Plt Count 490 H (130-400) K/uL BMP 04/23/24 04/23/24 04/24/24 17:28 22:48 00:28 Sodium 134 L 133 L 133 L Potassium 3.8 3.7 3.4 L Chloride 105 107 104 Carbon Dioxide 17 L 19 L 19 L BUN 27 H 26 H 24 H Creatinine 0.87 0.70 0.73 Glucose 169 H 170 H 178 H Calcium 8.0 L 7.9 L 8.2 L 04/24/24 07:10 Sodium 134 L Potassium 3.5 Chloride 105 Carbon Dioxide 19 L BUN 19 Creatinine 0.60 Glucose 127 H Calcium 7.9 L Liver Function 04/24/24 Range/Units 07:10 Total Bilirubin 0.6 (0.2-1.0) mg/dl Direct Bilirubin 0.1 (0-0.2) mg/dl AST 41 H (13-39) U/L ALT 52 (7-52) U/L Alkaline Phosphatase 60 (34-104) U/L Albumin 3.1 L (3.4-5.0) gm/dl Diagnostic Findings Chest CTA 04/22/24 23:22 EXAM: CT angio chest PE protocol CLINICAL HISTORY: PE TECHNIQUE: Contiguous axial images were obtained from the neck base through the upper abdomen following intravenous administration of iodinated contrast material. Angiographic images were processed, 3D MIP images were acquired for interpretation. If IV contrast material had not been administered, the likelihood of detecting abnormalities relevant to the patient's condition would have been substantially decreased. Coronal and sagittal 3-D MIPs were likewise performed and indicated to increase the sensitivity of detectin diffuse clinically relevant pathology. CT scan was performed according to ALARA (as low as reasonable achievable). COMPARISON: None. FINDINGS: Multiple patchy consolidations are noted involving both lungs predominantly on left side Multiple tiny centrilobular nodular infiltrates are noted in both lungs- suggestive of endobronchial spread of disease. Enlarged mediastinal and right hilar nodes also seen- reactive. Adequate contrast bolus without evidence of pulmonary embolism. The central airways are patent. No pleural effusion. The heart, aorta, and pulmonary arteries are of normal size and configuration. There are no appreciable coronary artery and aortic atherosclerotic calcifications. No pericardial effusion is identified. The thyroid is unremarkable. No axillary lymphadenopathy is noted. No suspicious lytic or sclerotic osseous lesions are identified. IMPRESSION: 1. No evidence of pulmonary embolism. 2. Multiple patchy consolidations are noted involving both lungs predominantly on left side 3. Multiple tiny centrilobular nodular infiltrates are noted in both lungs-suggestive of endobronchial spread of disease. Electronically signed by Rodrick Ramirez 04-23-2024 01:57 AM Chest X-Ray 04/22/24 23:22 Exam(s): XR CXR 1 VIEW EXAM: XR Chest, 1 View CLINICAL HISTORY: Reason for exam: Sepsis. TECHNIQUE: Frontal view of the chest. COMPARISON: 09/15/16 FINDINGS: Lungs: Left perihilar consolidation concerning for pneumonia. Additional bilateral hazy opacities may represent additional regions of pneumonia. Pleural space: No pleural effusion or pneumothorax. Heart: No cardiomegaly or pulmonary vascular congestion. Bones/joints: No acute fracture. No dislocation. IMPRESSION: 1. Left perihilar consolidation concerning for pneumonia. 2. Additional bilateral hazy opacities may represent additional regions of pneumonia. Electronically signed by: Grace Lee M.D. 04/23/24 00:[address] 04/22/24 23:22 EXAM: CT head/brain wo con CLINICAL HISTORY: WADE TECHNIQUE: Multiple axial images are obtained from the skull base to the vertex without contrast. CT scan was performed according to ALARA (as low as reasonably achievable). COMPARISON: none FINDINGS: The brain shows normal morphology, attenuation, and volume for age. No evidence of space occupying lesion, hemorrhage, edema, mass effect, midline shift, extra axial collection, or hydrocephalus is noted. Ventricles, sulci, and basal cisterns are symmetric and normal in size and configuration. The jean-white matter differentiation is preserved. Visualized mastoid air cells are well aerated. Bilateral ethmoidal and sphenoidal sinusitis. Orbital contents are within normal limits. Bony structures are intact. IMPRESSION: 1. No evidence of acute intracranial abnormality is demonstrated Electronically signed by Rodrick Ramirez 04-23-2024 01:41 AM
[2024-04-24] MEDS: LEVALBUTEROL 1.25 MG/3 ML NEB NEB SCH (11:58)
[2024-04-24] MEDS: ACETAMINOPHEN 325 MG TAB PO PRN (13:31)
[2024-04-24] MEDS: CALCIUM CARBONATE 500 MG CHEWABLE TAB PO PRN (13:31)
[2024-04-24] MEDS: BENZONATATE 100 MG CAPSULE PO SCH (13:32)
[2024-04-24] MEDS: FLUTICASONE PROPIONATE NA SPR 16 GM BTL SCH (14:38)
[2024-04-24] MEDS: ACETAMINOPHEN 500 MG TAB PO SCH (15:51)
--- NOTE | 2024-04-24 16:01 | CT Scan Report ---
HISTORY: Mastoid pain. TECHNIQUE: Helical CT imaging was acquired through the temporal bones without the use of IV contrast. Images are presented in axial, sagittal, coronal reformats. COMPARISON: None. FINDINGS: Right mastoid effusion without obvious coalescence. The right external auditory canal is patent. There is thickening of the tympanic membrane. There is opacification of the right middle ear cavity. The ossicles appear intact without obvious erosions. 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 The internal auditory canal is normal in caliber. Left mastoid air cells are clear. Left external auditory canal is clear. The tympanic membrane is thin. There is no middle ear effusion or opacification. The ossicles appear intact. The scutum is sharp. Cochlea and vestibule are unremarkable. He semicircular canals are unremarkable. Internal auditory canal is normal in caliber. The paranasal sinuses demonstrate mucosal thickening and air-fluid levels. There are postsurgical changes of the medial maxillary sinus choi. The globes and orbits are unremarkable. The soft tissues about the scalp and skull base are unremarkable. The included intracranial contents are unremarkable. IMPRESSION: 1. Right mastoid and middle ear effusion. Findings may represent acute otomastoiditis. Clinical correlation is recommended. 2. Thickening of the right tympanic membrane with middle ear effusion and soft tissue like opacification. Subtle erosive changes of the scutum raise the possibility of early cholesteatoma. No definite ossicular erosion. ENT consultation is recommended. 3. 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 4. Left temporal bone is unremarkable. Electronically signed by Romario Montoya 04-24-2024 4:01 PM
[2024-04-24] MEDS: oxyCODONE HCL IR 5 MG TAB (IMMEDIATE RELEASE) PO PRN (21:44)
[2024-04-24] MEDS: PSEUDOEPHEDRINE HCL 30 MG TAB PO PRN (23:38)
--- NOTE | 2024-04-25 07:48 | Hospitalist Progress Note ---
Date of Service April 25, 2024 Assessment & Plan (1) Sepsis: (2) Pneumonia: (3) Right otitis media: (4) Influenza A: (5) Hyponatremia: (6) Bipolar disorder: Plan: This is a 33-year-old male with past medical history significant for hypertension, obesity, hypertriglyceridemia, history of bipolar disorder, anxiety presents with ongoing shortness of breath and cough for last 2 weeks found to have Flu A and multifocal PNA. Sepsis 2/2 Multifocal pneumonia -> improving Tachycardic, hypotensive on arrival Ongoing symptoms for last 2 weeks CTA chest shows multifocal pneumonia Continue Zosyn and doxy MRSA swab negative Nebs scheduled, added Mucinex, Flonase Incentive spirometry and flutter valve Encouraged oral fluids Blood culture without growth in 48 hrs R middle ear effusion Persistent fullness on R side of face, +TM purulent Continue broad spectrum abx as above Head/mastoid CT from 04/25 with Right mastoid and middle ear effusion. Findings may represent acute otomastoiditis. Thickening of the right tympanic membrane with middle ear effusion and soft tissue like opacification Discussed with concrete paver ENT Dr. 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 Thayer Repeat BMP in AM Hypokalemia Replaced Follow labs Hypertension Will hold his olmesartan/hydrochlorothiazide for now Subclinical hypothyroidism Continue Synthyroid TSH WNL Hypertriglyceridemia Continue Tricor Bipolar disorder Anxiety Uses buspirone as needed Mild transaminitis Elevated 2/2 acute infection Downtrending Hypocalcemia Corrected calcium WNL - adding protein to diet with Boost Vitamin d levels deficient at 12.8 - starting 50,000 IU weekly x 8 weeks, recommend rechecking labs with PCP after 6 weeks DVT prophylaxis: Lovenox Disposition: Telemetry Code: FULL Care coordinated with Dr. Mcfarland. I spent a total of 50 minutes coordinating, documenting, and providing care for this patient excluding time spent in the performance of separately billed services or time spent by another provider/QHP. Admission and Anticipated Discharge Date Admission Date: April 23, 2024 Supervising Physician Co-Signing Physician Notes Pt seen and examined by me , care coordinated w/ Yg Willis PA-C, pls refer to her note above for further detail. Pt is breathing comfortably on RA, continues to have mild rhonchi diffusely on lung exam but improved. He feels better today and reports his breathing is improved. Also reports R ear pain and R mastoid tenderness is improved. Pt currently on zosyn, doxy, and tamiflu. WBC today down and normalized. Will cont. abx, and antivirals. Cont. to closely monitor. MD Bartolo I spent a total of 15 minutes coordinating, documenting, and providing care for this patient excluding time spend in the performance of separately billed services or time spent by another provider / QHP. Subjective Seen and examined in 238. Feeling much better today. No longer short of breath, has more energy. R ear still has pressure, exacerbated by coughing but better than yesterday. No F/C. Denies any hemoptysis. Tolerating diet without issue. No fever, chills, lightheadedness, chest pain, nausea, vomiting, abdominal pain. Having normal bowel movements. Review of Systems Review of Systems: At least ten systems reviewed and negative except as noted in the HPI. Physical Exam Physical Exam: Gen: WD/WN, NAD,laying in bed obese, A&Ox3 HEENT: Normocephalic, atraumatic, mucous membranes moist, R mastoid area ttp but no fluctuance, no erythema or warmth. Less prominent submandibular LAD Lung: Scattered expiratory rhonchi, improved from yesterday Heart: Regular rate, regular rhythm Abdomen: Soft, NT, ND +BS x 4 Extremities: no edema Skin: Warm, no rash Results & Data Results & Data Vital Signs (Past 12 Hours) Vital Signs Temp Pulse Pulse Resp BP Pulse Ox O2 Del Method 04/25/24 03:19 36.6 C 75 19 135/87 96 Room Air 04/24/24 23:28 37.0 C 75 19 122/78 96 Room Air 04/24/24 21:14 79 04/24/24 21:05 65 18 99 Room Air 04/24/24 20:00 Room Air Laboratory Results Short CBC 04/25/24 Range/Units 06:55 WBC 10.49 (4.8-10.8) K/ul Hgb 13.2 L (14.0-18.0) g/dl Hct 38.1 L (42.0-52.0) % Plt Count 490 H (130-400) K/uL [facility] 04/25/24 06:55 Sodium 137 Potassium 3.8 Chloride 108 H Carbon Dioxide 21 BUN 17 Creatinine 0.54 L Glucose 84 Calcium 8.3 L Diagnostic Findings Chest CTA 04/22/24 23:22 EXAM: CT angio chest PE protocol CLINICAL HISTORY: PE TECHNIQUE: Contiguous axial images were obtained from the neck base through the upper abdomen following intravenous administration of iodinated contrast material. Angiographic images were processed, 3D MIP images were acquired for interpretation. If IV contrast material had not been administered, the likelihood of detecting abnormalities relevant to the patient's condition would have been substantially decreased. Coronal and sagittal 3-D MIPs were likewise performed and indicated to increase the sensitivity of detectin diffuse clinically relevant pathology. CT scan was performed according to ALARA (as low as reasonable achievable). COMPARISON: None. FINDINGS: Multiple patchy consolidations are noted involving both lungs predominantly on left side Multiple tiny centrilobular nodular infiltrates are noted in both lungs- suggestive of endobronchial spread of disease. Enlarged mediastinal and right hilar nodes also seen- reactive. Adequate contrast bolus without evidence of pulmonary embolism. The central airways are patent. No pleural effusion. The heart, aorta, and pulmonary arteries are of normal size and configuration. There are no appreciable coronary artery and aortic atherosclerotic calcifications. No pericardial effusion is identified. The thyroid is unremarkable. No axillary lymphadenopathy is noted. No suspicious lytic or sclerotic osseous lesions are identified. IMPRESSION: 1. No evidence of pulmonary embolism. 2. Multiple patchy consolidations are noted involving both lungs predominantly on left side 3. Multiple tiny centrilobular nodular infiltrates are noted in both lungs-suggestive of endobronchial spread of disease. Electronically signed by Rodrick Ramirez 04-23-2024 01:57 AM Chest X-Ray 04/22/24 23:22 Exam(s): XR CXR 1 VIEW EXAM: XR Chest, 1 View CLINICAL HISTORY: Reason for exam: Sepsis. TECHNIQUE: Frontal view of the chest. COMPARISON: 09/15/16 FINDINGS: Lungs: Left perihilar consolidation concerning for pneumonia. Additional bilateral hazy opacities may represent additional regions of pneumonia. Pleural space: No pleural effusion or pneumothorax. Heart: No cardiomegaly or pulmonary vascular congestion. Bones/joints: No acute fracture. No dislocation. IMPRESSION: 1. Left perihilar consolidation concerning for pneumonia. 2. Additional bilateral hazy opacities may represent additional regions of pneumonia. Electronically signed by: Grace Lee M.D. 04/23/24 00:[address] 04/22/24 23:22 EXAM: CT head/brain wo con CLINICAL HISTORY: WADE TECHNIQUE: Multiple axial images are obtained from the skull base to the vertex without contrast. CT scan was performed according to ALARA (as low as reasonably achievable). COMPARISON: none FINDINGS: The brain shows normal morphology, attenuation, and volume for age. No evidence of space occupying lesion, hemorrhage, edema, mass effect, midline shift, extra axial collection, or hydrocephalus is noted. Ventricles, sulci, and basal cisterns are symmetric and normal in size and configuration. The jean-white matter differentiation is preserved. Visualized mastoid air cells are well aerated. Bilateral ethmoidal and sphenoidal sinusitis. Orbital contents are within normal limits. Bony structures are intact. IMPRESSION: 1. No evidence of acute intracranial abnormality is demonstrated Electronically signed by Rodrick Ramirez 04-23-2024 01:41 AM Head/Mastoid CT 04/24/24 14:57 HISTORY: Mastoid pain. TECHNIQUE: Helical CT imaging was acquired through the temporal bones without the use of IV contrast. Images are presented in axial, sagittal, coronal reformats. COMPARISON: None. FINDINGS: Right mastoid effusion without obvious coalescence. The right external auditory canal is patent. There is thickening of the tympanic membrane. There is opacification of the right middle ear cavity. The ossicles appear intact without obvious erosions. 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 The internal auditory canal is normal in caliber. Left mastoid air cells are clear. Left external auditory canal is clear. The tympanic membrane is thin. There is no middle ear effusion or opacification. The ossicles appear intact. The scutum is sharp. Cochlea and vestibule are unremarkable. He semicircular canals are unremarkable. Internal auditory canal is normal in caliber. The paranasal sinuses demonstrate mucosal thickening and air-fluid levels. There are postsurgical changes of the medial maxillary sinus choi. The globes and orbits are unremarkable. The soft tissues about the scalp and skull base are unremarkable. The included intracranial contents are unremarkable. IMPRESSION: 1. Right mastoid and middle ear effusion. Findings may represent acute otomastoiditis. Clinical correlation is recommended. 2. Thickening of the right tympanic membrane with middle ear effusion and soft tissue like opacification. Subtle erosive changes of the scutum raise the possibility of early cholesteatoma. No definite ossicular erosion. ENT consultation is recommended. 3. 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 4. Left temporal bone is unremarkable. Electronically signed by Romario Montoya 04-24-2024 4:01 PM
[2024-04-25 07:53] LABS: Hematocrit (blood only) 38.1 % (42.0-52.0); Hemoglobin 13.2 g/dl (14.0-18.0); Mean Corpuscular Hemoglobin 30.9 pg (25.0-34.0); Mean Corpuscular Hgb Conc 34.6 g/dL (32.0-36.0); Mean Corpuscular Volume 89.2 fL (80.0-100.0); Mean Platelet Volume 9.1 fL (9.4-12.4); Platelet Count 490 K/uL (130-400); RDW Coefficient of Variation 12.8 % (11.5-14.5); RDW Standard Deviation 41.6 fL (36.4-46.3); Red Blood Count 4.27 M/uL (4.70-6.10); White Blood Count 10.49 K/ul (4.8-10.8)
[2024-04-25 08:16] LABS: BUN Creatinine Ratio 31.5 (10-20); Calcium 8.3 mg/dl (8.6-10.3); Creatinine Clr Calc Pharmacy 240.1 ml/min; Magnesium 1.9 mg/dl (1.7-2.4); Phosphorus 2.8 mg/dl (2.5-4.9); Potassium 3.8 mmol/L (3.5-5.1)
--- NOTE | 2024-04-25 10:14 | Nephrology Progress Note ---
Date of Service April 25, 2024 Assessment & Plan (1) Hyponatremia: Plan: hyponatremia due to SIADH in setting of acute illness. Admission sodium of 126. Na uptrending nicely to 137 today -Patient can eat and drink up to 1.5 litres in 24hrs. -Monitor sodium daily Renal will sign off case. Please call if additional questions or concerns Admission and Anticipated Discharge Date Admission Date: April 23, 2024 Subjective Seen for hyponatremia. No SOB or leg swelling. na up to 137 Review of Systems 2 Review of Systems: All other systems were reviewed and negative except as noted in HPI Physical Exam 2 Physical Exam: General exam: Appears comfortable, no acute distress HEENT: Pupils are equal and reactive to light Neck: No JVD, neck is supple trachea is midline Respiratory system: Clear breath sounds bilaterally. Gastrointestinal: Abdomen is soft, non distended, non tender, bowel sounds are present CVS: Regular rate and rhythm. No murmurs, rubs or gallops Musculoskeletal: No joint or muscle tenderness Extremities: Non tender, no edema, peripheral pulses are present Neuro: Oriented, no tremors, no focal neurological deficits Skin: No rashes Results & Data Vital Signs (Past 12 Hours) Vital Signs Temp Pulse Pulse Resp BP Pulse Ox O2 Del Method 04/25/24 09:36 60 04/25/24 08:02 Room Air 04/25/24 07:48 36.9 C 108 H 18 142/82 H 95 Room Air 04/25/24 03:19 36.6 C 75 19 135/87 96 Room Air 04/24/24 23:28 37.0 C 75 19 122/78 96 Room Air Laboratory Results 04/25/24 06:55 04/25/24 06:55 WBC 10.49 RBC 4.27 L MCV 89.2 MCH 30.9 MCHC 34.6 RDW Std Deviation 41.6 RDW Coeff of Rosalie 12.8 Plt Count 490 H MPV 9.1 L Phosphorus 2.8
[2024-04-25] MEDS ORDERED: LEVALBUTEROL 1.25 MG/3 ML NEB NEB SCH (15:00)
[2024-04-25] MEDS: PSEUDOEPHEDRINE HCL 30 MG TAB PO STA (17:02)
[2024-04-25] MEDS: LEVALBUTEROL 1.25 MG/3 ML NEB NEB SCH (20:54)
[2024-04-26 02:10] VITALS: O2SAT 95
[2024-04-26 07:34] LABS: Hematocrit (blood only) 38.7 % (42.0-52.0); Hemoglobin 13.5 g/dl (14.0-18.0); Mean Corpuscular Hemoglobin 31.2 pg (25.0-34.0); Mean Corpuscular Hgb Conc 34.9 g/dL (32.0-36.0); Mean Corpuscular Volume 89.4 fL (80.0-100.0); Mean Platelet Volume 9.4 fL (9.4-12.4); Platelet Count 451 K/uL (130-400); RDW Coefficient of Variation 12.5 % (11.5-14.5); RDW Standard Deviation 41.2 fL (36.4-46.3); Red Blood Count 4.33 M/uL (4.70-6.10); White Blood Count 12.34 K/ul (4.8-10.8)
[2024-04-26 07:52] LABS: Potassium 3.7 mmol/L (3.5-5.1)
[2024-04-26 07:53] LABS: BUN Creatinine Ratio 23.2 (10-20); Calcium 8.6 mg/dl (8.6-10.3); Creatinine Clr Calc Pharmacy 232.1 ml/min; Magnesium 1.6 mg/dl (1.7-2.4); Phosphorus 2.8 mg/dl (2.5-4.9)
[2024-04-26 07:56] VITALS: RESP 18
--- NOTE | 2024-04-26 08:11 | Hospitalist Progress Note ---
Date of Service April 26, 2024 Assessment & Plan (1) Sepsis: (2) Pneumonia: (3) Right otitis media: (4) Influenza A: (5) Hyponatremia: (6) Bipolar disorder: Plan: This is a 33-year-old male with past medical history significant for hypertension, obesity, hypertriglyceridemia, history of bipolar disorder, anxiety presents with ongoing shortness of breath and cough for last 2 weeks found to have Flu A and multifocal PNA. Sepsis 2/2 Multifocal pneumonia -> improving Tachycardic, hypotensive on arrival Ongoing symptoms for last 2 weeks CTA chest shows multifocal pneumonia Continue Zosyn and doxy MRSA swab negative Nebs scheduled, added Mucinex, Flonase Incentive spirometry and flutter valve Encouraged oral fluids Blood culture without growth in 48 hrs R middle ear effusion Persistent fullness on R side of face, +TM purulent Continue broad spectrum abx as above Head/mastoid CT from 04/25 with Right mastoid and middle ear effusion. Findings may represent acute otomastoiditis. Thickening of the right tympanic membrane with middle ear effusion and soft tissue like opacification Discussed with consulting analyst ENT Dr. 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 Thayer Repeat BMP in AM Hypokalemia Replaced Follow labs Hypertension Will hold his olmesartan/hydrochlorothiazide for now Subclinical hypothyroidism Continue Synthyroid TSH WNL Hypertriglyceridemia Continue Tricor Bipolar disorder Anxiety Uses buspirone as needed Mild transaminitis Elevated 2/2 acute infection Downtrending Hypocalcemia Corrected calcium WNL - adding protein to diet with Boost Vitamin d levels deficient at 12.8 - starting 50,000 IU weekly x 8 weeks, recommend rechecking labs with PCP after 6 weeks DVT prophylaxis: Lovenox Disposition: Telemetry Code: FULL Care coordinated with Dr. Mcfarland. I spent a total of 50 minutes coordinating, documenting, and providing care for this patient excluding time spent in the performance of separately billed services or time spent by another provider/QHP. Admission and Anticipated Discharge Date Admission Date: April 23, 2024 Results & Data Results & Data Vital Signs (Past 12 Hours) Vital Signs Temp Pulse Pulse Resp BP Pulse Ox O2 Del Method 04/26/24 07:54 37.0 C 92 H 18 135/77 95 Room Air 04/26/24 06:18 92 H 19 95 Room Air 04/26/24 02:09 36.7 C 58 L 14 139/85 95 Room Air 04/25/24 22:18 36.9 C 71 16 134/88 97 Room Air 04/25/24 22:00 Room Air 04/25/24 21:52 69
[2024-04-26] MEDS: MAGNESIUM SULFATE / D5W 1 GM/100 ML BAG IV ONE (08:45)
[2024-04-26 11:02] VITALS: PULSE 91; TEMP 97.7
[2024-04-26] MEDS: CIPRO 0.3%/DEXAMETHASONE 0.1% OTIC SUSP 7.5ML OTR SCH (11:47)
--- NOTE | 2024-04-26 11:50 | Discharge Summary ---
Discharge Summary Date of Service April 26, 2024 Principal Dx & Hospital Course #1 = Principal Diagnosis (1) Sepsis: (2) Pneumonia: (3) Right otitis media: (4) Influenza A: (5) Hyponatremia: (6) Bipolar disorder: Plan This is a 33-year-old male with past medical history significant for hypertension, obesity, hypertriglyceridemia, history of bipolar disorder, anxiety presents with ongoing shortness of breath and cough for last 2 weeks found to have Flu A and multifocal PNA. On admission patient was found to meet sepsis criteria secondary to tachycardia and hypotension. CTA of chest showed multifocal pneumonia. Patient also complained of right sided fullness as well as ear pain and decreased hearing for approximately 1.5 weeks. On 04/25 head/mastoid CT revealed right mastoid and middle ear effusion which may re present acute otomastoiditis. Thickening of the right tympanic membrane with middle ear effusion was also noted. Case was discussed with ENT on-call Dr. Castillo who reviewed CT findings. His recommendations were to continue IV antibiotics as there was no reported fluctuance or erythema overlying the mastoid at that time. His symptoms of right ear pain waxed and waned despite antibiotics. He was started on Tamiflu as he tested positive for influenza A on admission. He was started on IV Zosyn and doxycycline for the presumed mastoiditis. His hospital course was further complicated with hyponatremia. He was seen and evaluated by nephrology who recommended a 1.5 L fluid restriction. Initial sodium was 126 and on day of discharge was 138. He also had intermittent hypokalemia which was replaced. His mag on day of discharge was 1.6 and he received 1g of mag sulfate. I discussed with ENT Dr. Castillo who will follow up with patient as outpatient. On day of discharge he was still having R ear pain. Also pain with movement of R auricle and palpation of tragus. He was started on Ciprodex ear gtts. He will be discharged on oral augmentin and oral doxycycline to complete at 2 week course. Lastly he was found to have a vitamin D level of 12.8. He was started on Vitamin D2 1,250mg weekly for 8 weeks with close outpt follow up. He was in good spirits on day of discharge. His vitals are stable and afebrile. I spent a total of 46 minutes coordinating, documenting, and providing care for this patient excluding time spent in the performance of separately billed services or time spent by another provider/QHP. Notes For Next Care Provider Please ensure pt has ENT follow up with Dr. Castillo. Recommend repeat bmp, mag as outpt as Na, K, mag were low inpt. Ensure completion of antibiotics. Repeat Vit D level in 8 weeks. Medication Changes From Visit 1. Amoxicillin - Clavulanate 875mg by mouth twice daily until complete. Next dose is due 04/26 in the p.m. 2. Doxycycline 100mg by mouth every 12 hours. Next dose is due 04/26 at 10 p.m. 3. Cipro dex ear drops - apply 4 ear drops to R ear twice daily for a total of 7 days. Next dose due before bedtime on 04/26 4. Lactobacillus 1 tablet by mouth daily for additional 10 days. This is a probiotic. 5. Tamiflu 75mg by mouth twice daily. You have 3 more doses to complete treatment for influenza A. 6. Oxycodone 5mg every 6 hours as needed for severe pain. This medication may make you constipated. Please use over the counter stool softener if this occurs. 7. Vitamin D3 1,250mg one tablet by mouth every Friday at 0900. Please do this for 8 weeks. Please have your family doctor repeat your vitamin D levels at this time to determine if you still need this high of a dose or it can be reduced. 8. You may use over the counter pseudophed 60mg every 6 hours as needed for decongestant Admission HPI Per Admitting Provider 33-year-old male with past medical history significant for hypertension, obesity, hypertriglyceridemia, history of bipolar disorder, anxiety presents with ongoing shortness of breath and cough for last 2 weeks. He is coughing a lot. Has some chest pain yesterday attributes to coughing. Currently no chest pain. He has abdominal discomfort. Body aches and feeling very weak. Feeling short of breath. Has headache. Some runny nose. Has sore throat. Poor appetite. Had few episodes of diarrhea. Micturating okay. States quit smoking beginning of the year and also quit drinking alcohol beginning of the year. Past medical history. As mentioned above Past surgical history. No surgeries on file Social history. Smoked 1 pack a day for 10 years. Quit in March 2024. Heavy alcohol use but quit in September 2024. Denies any drug use Family history. Maternal grandmother had allergies. Father has eczema. Admission Exam Per Admitting Provider General- Not in acute distress. Head- atraumatic Eyes- PERRL. ENT- oropharynx clear Neck- supple, no JVD. Lungs- clear to auscultation no wheezing or crackles Heart- regular rhythm; tachycardia, no murmur, no gallop. Abdomen- normal bowel sounds, soft, tenderness in periumbilical region Extremities- no pretibial edema, no erythema seen Neuro- alert, oriented PERRL, no facial palsy; no dysarthria; moves extremities Discharge Exam Gen: WD/WN, NAD, A&O x3 HEENT: Normocephalic, atraumatic, conjunctivae moist, sclerae anicteric, mucous membranes moist. Ear: L TM normal, mild cerumen, R ear pain with movement of auricle +palp of tragus, + erythematous TM superiorly with distortion of anatomical landmarks, decreased hearing to R ear Lung: Clear to Auscultation bilaterally, no wheezes/rales/rhonchi Heart: Regular rate, regular rhythm, no murmurs, rubs, or gallops Abdomen: Soft, NT, ND +BS x 4 Extremities: No edema Skin: Warm, no rash, negative turgor. Updated Medication List Medication Instructions Recorded Confirmed Type fenofibrate nanocrystallized 48 mg 48 mg PO DAILY 04/23/24 04/23/24 History tablet (Tricor) levothyroxine 25 mcg tablet 25 mcg PO DAILY 04/23/24 04/23/24 History olmesartan 20 1 tab PO DAILY 04/23/24 04/23/24 History mg-hydrochlorothiazide 12.5 mg tablet L.acidop,casei,lactis,rham-B.lact,cathy 1 cap PO DAILY #10 caps 04/26/24 Rx 625 mg (10 billion cell) capsule (Advanced Probiotic) amoxicillin 875 mg-potassium 1 tab PO Q12H 11 days #22 tabs 04/26/24 Rx clavulanate 125 mg tablet ciprofloxacin 0.3 %-dexamethasone 4 drp OTR BID 7 days #7.5 mL 04/26/24 Rx 0.1 % ear drops,suspension doxycycline hyclate 100 mg capsule 100 mg PO BID 11 days #22 caps 04/26/24 Rx ergocalciferol (vitamin D2) 1,250 1,250 mcg PO Sa@0900 #10 caps 04/26/24 Rx mcg (50,000 unit) capsule oseltamivir 75 mg capsule (Tamiflu) 75 mg PO BID #3 caps 04/26/24 Rx oxycodone 5 mg tablet 5 mg PO Q6H PRN pain #5 tabs 04/26/24 Rx pseudoephedrine HCl 60 mg tablet 60 mg PO Q6H PRN nasal congestion 04/26/24 Rx #10 tabs Hospital Stay Data Consultations 04/23/24 00:27 ED Decision to Admit Stat 04/23/24 07:14 Consult Nephrology Routine Diagnostic Imagining Performed Chest CTA 04/22/24 23:22 EXAM: CT angio chest PE protocol CLINICAL HISTORY: PE TECHNIQUE: Contiguous axial images were obtained from the neck base through the upper abdomen following intravenous administration of iodinated contrast material. Angiographic images were processed, 3D MIP images were acquired for interpretation. If IV contrast material had not been administered, the likelihood of detecting abnormalities relevant to the patient's condition would have been substantially decreased. Coronal and sagittal 3-D MIPs were likewise performed and indicated to increase the sensitivity of detectin diffuse clinically relevant pathology. CT scan was performed according to ALARA (as low as reasonable achievable). COMPARISON: None. FINDINGS: Multiple patchy consolidations are noted involving both lungs predominantly on left side Multiple tiny centrilobular nodular infiltrates are noted in both lungs- suggestive of endobronchial spread of disease. Enlarged mediastinal and right hilar nodes also seen- reactive. Adequate contrast bolus without evidence of pulmonary embolism. The central airways are patent. No pleural effusion. The heart, aorta, and pulmonary arteries are of normal size and configuration. There are no appreciable coronary artery and aortic atherosclerotic calcifications. No pericardial effusion is identified. The thyroid is unremarkable. No axillary lymphadenopathy is noted. No suspicious lytic or sclerotic osseous lesions are identified. IMPRESSION: 1. No evidence of pulmonary embolism. 2. Multiple patchy consolidations are noted involving both lungs predominantly on left side 3. Multiple tiny centrilobular nodular infiltrates are noted in both lungs-suggestive of endobronchial spread of disease. Electronically signed by Rodrick Ramirez 04-23-2024 01:57 AM Chest X-Ray 04/22/24 23:22 Exam(s): XR CXR 1 VIEW EXAM: XR Chest, 1 View CLINICAL HISTORY: Reason for exam: Sepsis. TECHNIQUE: Frontal view of the chest. COMPARISON: 09/15/16 FINDINGS: Lungs: Left perihilar consolidation concerning for pneumonia. Additional bilateral hazy opacities may represent additional regions of pneumonia. Pleural space: No pleural effusion or pneumothorax. Heart: No cardiomegaly or pulmonary vascular congestion. Bones/joints: No acute fracture. No dislocation. IMPRESSION: 1. Left perihilar consolidation concerning for pneumonia. 2. Additional bilateral hazy opacities may represent additional regions of pneumonia. Electronically signed by: Grace Lee M.D. 04/23/24 00:[address] 04/22/24 23:22 EXAM: CT head/brain wo con CLINICAL HISTORY: WADE TECHNIQUE: Multiple axial images are obtained from the skull base to the vertex without contrast. CT scan was performed according to ALARA (as low as reasonably achievable). COMPARISON: none FINDINGS: The brain shows normal morphology, attenuation, and volume for age. No evidence of space occupying lesion, hemorrhage, edema, mass effect, midline shift, extra axial collection, or hydrocephalus is noted. Ventricles, sulci, and basal cisterns are symmetric and normal in size and configuration. The jean-white matter differentiation is preserved. Visualized mastoid air cells are well aerated. Bilateral ethmoidal and sphenoidal sinusitis. Orbital contents are within normal limits. Bony structures are intact. IMPRESSION: 1. No evidence of acute intracranial abnormality is demonstrated Electronically signed by Rodrick Ramirez 04-23-2024 01:41 AM Head/Mastoid CT 04/24/24 14:57 HISTORY: Mastoid pain. TECHNIQUE: Helical CT imaging was acquired through the temporal bones without the use of IV contrast. Images are presented in axial, sagittal, coronal reformats. COMPARISON: None. FINDINGS: Right mastoid effusion without obvious coalescence. The right external auditory canal is patent. There is thickening of the tympanic membrane. There is opacification of the right middle ear cavity. The ossicles appear intact without obvious erosions. 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 The internal auditory canal is normal in caliber. Left mastoid air cells are clear. Left external auditory canal is clear. The tympanic membrane is thin. There is no middle ear effusion or opacification. The ossicles appear intact. The scutum is sharp. Cochlea and vestibule are unremarkable. He semicircular canals are unremarkable. Internal auditory canal is normal in caliber. The paranasal sinuses demonstrate mucosal thickening and air-fluid levels. There are postsurgical changes of the medial maxillary sinus choi. The globes and orbits are unremarkable. The soft tissues about the scalp and skull base are unremarkable. The included intracranial contents are unremarkable. IMPRESSION: 1. Right mastoid and middle ear effusion. Findings may represent acute otomastoiditis. Clinical correlation is recommended. 2. Thickening of the right tympanic membrane with middle ear effusion and soft tissue like opacification. Subtle erosive changes of the scutum raise the possibility of early cholesteatoma. No definite ossicular erosion. ENT consultation is recommended. 3. 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 4. Left temporal bone is unremarkable. Electronically signed by Romario Montoya 04-24-2024 4:01 PM Pending Results Patient Have Any Pending Studies at Discharge: No Discharge Instructions Given to Patient (Per Discharging Provider) MEDICATION CHANGES: 1. Amoxicillin - Clavulanate 875mg by mouth twice daily until complete. Next dose is due 04/26 in the p.m. 2. Doxycycline 100mg by mouth every 12 hours. Next dose is due 04/26 at 10 p.m. 3. Cipro dex ear drops - apply 4 ear drops to R ear twice daily for a total of 7 days. Next dose due before bedtime on 04/26 4. Lactobacillus 1 tablet by mouth daily for additional 10 days. This is a probiotic. 5. Tamiflu 75mg by mouth twice daily. You have 3 more doses to complete treatment for influenza A. 6. Oxycodone 5mg every 6 hours as needed for severe pain. This medication may make you constipated. Please use over the counter stool softener if this occurs. 7. Vitamin D3 1,250mg one tablet by mouth every Friday at 0900. Please do this for 8 weeks. Please have your family doctor repeat your vitamin D levels at this time to determine if you still need this high of a dose or it can be reduced. 8. You may use over the counter pseudophed 60mg every 6 hours as needed for decongestant SUMMARY OF TEST RESULTS: You were admitted to hospital due to Influenza A, R ear pain and hearing loss. A head CT showed concern for infection in your R ear along with your mastoid. You were started on antibiotics. You were also started on treatment for influenza A. An ENT specialist was occasional babysitter who recommended close outpt follow up. You were also found to have low sodium and low potassium. This was corrected while you were inpatient. Lastly you were found to be deficient in Vitamin D. This is aslo being supplemented. PENDING TEST RESULTS: None RECOMMENDATIONS FOR FOLLOW-UP: Please follow up with Primary Care Provider as scheduled. ENT Dr. Gallegos office is to be reaching out to you to schedule an appointment. We recommend you see them [facility] for close follow up regarding your R middle ear infection. Please complete all antibiotics as prescribed. Please have your Primary Care Provider repeat your vitamin D level in 2 months to ensure Vitamin D is being adequately supplemented. OTHER INSTRUCTIONS: Seek medical attention if you have: * temperature above 101 * chest pain or trouble breathing * abdominal pain, nausea, vomiting * diarrhea, dark stools or bloody stools * any unanswered questions or concerns Call 911 if symptoms are severe. Please take good care of yourself. It has been a pleasure taking care of you. Please take care of yourself. If you have any questions regarding your recent hospitalization please contact [facility] and request [facility] Hospitalist @ [phone]. Total Time Total Time Spent Total Time Spent (In Minutes): 46 minutes Supervising Physician Co-Signing Physician Notes Pt seen and examined by me , care coordinated w/ B. Cecy MEAD, pls refer to her note above for further detail. Pt is breathing comfortably on RA, CTAB. He feels better today and reports his breathing is improved. Also reports R ear pain and R mastoid tenderness is improved. Pt on zosyn, doxy, and tamiflu while inpt. Will cont. abx, and antivirals. Communicated w/ ENT, follow up with ENT, and PCP. MD Bartolo
[2024-04-26 12:56] VITALS: BP 130/92
[2024-05-01] MEDS ORDERED: ERGOCALCIFEROL 1250 MCG (50,000 UNITS) CAP PO SCH (09:00)
== END 2024-04-26 13:15 | disposition home or self-care (01) | DRG 871 ==
LOC: ED 22:49 → EDINP 04-23 02:17 → 2S 04-23 03:42